=== PATIENT | female | born 1985 | race Caucasian/White ===

== ENCOUNTER 2017-06-14 11:19 | Inpatient (IN) | payer OTHER ==
[2017-06-14 13:51] VITALS: BMI 25.7
--- NOTE | 2017-06-14 19:17 | HP ---
COWS - Scale Resting Pulse: 1= [place] 81-100 Sweatin=Flushed/Facial Moisture Restless Observation: 3= Extraneous Movement Pupil Size: 0= Normal to Room Light Bone or Joint Aches: 2= Severe Diffuse Aches Runny Nose/ Eye Tearin= Constantly Teary/Runny GI Upset > 30mins: 1= Stomach Cramp Tremor Observation: 2= Slight Tremor Visible Yawning Observation: 1= 1-2x During Session Anxiety or Irritability: 4=Extreme Anxiety Goose Flesh Skin: 3=Piloerection COWS Score: 23 CIWA Score - CIWA Score Nausea/Vomitin Muscle Tremors: 4-Moderate,w/Arms Extend Anxiety: 4-Mod. Anxious/Guarded Agitation: 5 Paroxysmal Sweats: 3 Orientation: 1-Uncertain about Date Tacttile Disturbances: 2-Mild Itch/Numbness/Burn Auditory Disturbances: 2-Mild Harshness/Frighten Visual Disturbances: 2-Mild Sensitivity Headache: 2-Mild CIWA-Ar Total Score: 28 Admission [facility] - HPI Chief Complaint: "I dont feel like this, I feel like im burning inside, I need help, I don't feel well. I am withdrawing real bad this time." Allergies/Adverse Reactions: Allergies Allergy/AdvReac Type Severity Reaction Status Date / Time Fish Containing Products Allergy Severe Rash Verified 06/14/17 17:18 lamotrigine [From Lamictal] Allergy Unknown Rash Verified 06/14/17 17:18 History of Present Illness: 31 yo female with hx nicotine, alcohol, marijuana, IV heroin, xanax and cocaine dependence is here seeking detox. PMHX: epilepsy, asthma, grand mal seizures, HTN, bipolar, anxiety, schizophrenia. Currently denies suicidal /. homicidal ideation, reports hx of suicide attempt, last time 2 years ago. Denies auditory or visual hallucinations. Denies hx of OD, last seizures related to stress three days ago. Reports hx of link to Methadone program on 80 mg half-way 2014 and was release September 03, 2016. Longest period of sobriety 5 years. Exam Limitations: No Limitations - Ebola screening Have you traveled outside of the country in the last 21 days: No Have you had contact with anyone from an Ebola affected area: No Have you been sick,other than usual withdrawal symptoms: No Do you have a fever: No - Review of Systems Constitutional: Chills, Loss of Appetite, Changes in sleep, Weakness, Unintentional Wgt. Loss (30 lbs in month) EENT: reports: Nose Congestion, Dental Problems ("feel like they are getting loose") Respiratory: reports: SOB with Exertion Cardiac: reports: Palpitations GI: reports: Diarrhea, Nausea, Poor Appetite, Poor Fluid Intake, Vomiting, Abdominal cramping : reports: No Symptoms Reported Musculoskeletal: reports: Back Pain, Joint Pain Integumentary: reports: Pruritus (eczema) Neuro: reports: Headache, Numbness, Tingling, Dizziness Endocrine: reports: Excessive Sweating, Increased Thirst Hematology: reports: No Symptoms Reported Psychiatric: reports: Agitated, Anxious, other (AOx PP) Other Systems: Reviewed and Negative Patient History - Patient Medical History Hx Anemia: No Hx Asthma: Yes (Pt is on MDI for asthma.) Hx Chronic Obstructive Pulmonary Disease (COPD): No Hx Cancer: No Hx Cardiac Disorders: No Hx Congestive Heart Failure: No Hx Hypertension: Yes (on meds.) Hx Hypercholesterolemia: No Hx Pacemaker: No HX Cerebrovascular Accident: No Hx Seizures: Yes (seizure disorder, last seizure was 3 days ago.) Hx Dementia: No Hx Diabetes: No Hx Gastrointestinal Disorders: No Hx Liver Disease: No Hx Genitourinary Disorders: No Hx Sexually Transmitted Disorders: No Hx Renal Disease (ESRD): No Hx Thyroid Disease: No Hx Human Immunodeficiency Virus (HIV): No Hx Hepatitis C: No Hx Depression: Yes Hx Suicide Attempt: Yes (Tried to overdose in 2014) Hx Bipolar Disorder: Yes Hx Schizophrenia: No - Patient Surgical History Past Surgical History: Yes Hx Neurologic Surgery: No Hx Cataract Extraction: No Hx Cardiac Surgery: No Hx Lung Surgery: No Hx Breast Surgery: No Hx Breast Biopsy: No Hx Abdominal Surgery: No Hx Appendectomy: No Hx Cholecystectomy: No Hx Genitourinary Surgery: No Hx Section: Yes (2x) Hx Orthopedic Surgery: No Anesthesia Reaction: No - PPD History Previous Implant?: Yes Documented Results: Negative w/o proof Implanted On Prior R Admission?: Yes Date: 11/19/14 Results: 0mm PPD to be Administered?: Yes - Reproductive History Patient is a Female of Child Bearing Age (11 -55 yrs old): Yes Last Menstrual Period: 03/03/17 Patient : No - Smoking Cessation Smoking history: Current every day smoker Have you smoked in the past 12 months: Yes Aproximately how many cigarettes per day: 20 Hx Chewing Tobacco Use: No Initiated information on smoking cessation: Yes 'Breaking Loose' booklet given: 06/14/17 - Substance & Tx. History Hx Alcohol Use: Yes Hx Substance Use: Yes Substance Use Type: Alcohol, Cocaine, Heroin, Marijuana, Opiates, Tranquilizers Hx Substance Use Treatment: Yes ([facility] 2014) - Substances Abused Heroin Route: Injection Frequency: Daily Amount used: 20-30 BAGS Age of first use: 26 Date of Last Use: 06/14/17 Cocaine Route: Injection Frequency: Daily Amount used: 1 GRAM Age of first use: 26 Date of Last Use: 06/13/17 Alprazolam (Xanax) Route: Oral Frequency: Daily Amount used: 10MG Age of first use: 29 Date of Last Use: 06/13/17 Marijuana/Hashish Route: Smoking Frequency: 1-2 times per week Amount used: 1 OUNCE Age of first use: 13 Date of Last Use: 06/13/17 Alcohol Route: Oral Frequency: Daily Amount used: 1 LITER VODKA Age of first use: 17 Date of Last Use: 06/14/17 Family Disease History - Family Disease History Family Disease History: Diabetes: Grandparent, Father (dependencies on alcohol and drugs ), Heart Disease: Grandparent, Respiratory: Grandparent, Father, Mother (dependencies on alcohol and drugs ), Brother, Sister, Other: Father, Mother Admission Physical Exam S - Vital Signs Vital Signs: Vital Signs - 24 hr 06/14/17 06/14/17 13:49 18:05 Temperature 98.1 F 98.1 F Pulse Rate 100 H 100 H Respiratory 18 18 Rate Blood Pressure 111/59 111/59 - Physical General Appearance: Yes: Moderate Distress, Irritable, Sweating, Anxious, Other (patient unable to sit still, kept standing up several times suring assessment) HEENTM: Yes: EOMI, Hearing grossly Normal, Normal ENT Inspection, Pharynx Normal , Tm's normal, Nasal Congestion Respiratory: Yes: Chest Non-Tender, Lungs Clear, Normal Breath Sounds, No Respiratory Distress, No Accessory Muscle Use Neck: Yes: No masses,lesions,Nodules, Trachea in good position Breast: Yes: Breast Exam Deferred Cardiology: Yes: Regular Rhythm, Regular Rate, S1, S2 Abdominal: Yes: Normal Bowel Sounds, Non Tender, Flat, Soft Genitourinary: Yes: Within Normal Limits Back: Yes: Normal Inspection Musculoskeletal: Yes: full range of Motion, Gait Steady, Pelvis Stable Extremities: Yes: Normal Capillary Refill, Normal Range of Motion, Non-Tender, Tremors 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: Yes: Within Normal Limits, deer farmer II-XII NML intact, Fully Oriented, Alert, Motor Strength 5/5, Depressed Affect (patient was tearful during assesment) Integumentary: Yes: Normal Color, Dry, Warm, Diaphoresis, Rash (flexeral folds of the forearms), Track Holguin (bilateral hands and foreams without signs of infection) Lymphatic: Yes: Within Normal Limits - Diagnostic (1) Eczema Current Visit: Yes Status: Chronic Qualifiers: Eczema type: unspecified Qualified Code(s): L30.9 - Dermatitis, unspecified (2) Hypertension Current Visit: Yes Status: Chronic Qualifiers: Hypertension type: essential hypertension Qualified Code(s): I10 - Essential (primary) hypertension (3) Asthma Current Visit: Yes Status: Chronic (4) Alcohol dependence with withdrawal Current Visit: Yes Status: Acute Qualifiers: Complication of substance-induced condition: uncomplicated Qualified Code(s ): F10.230 - Alcohol dependence with withdrawal, uncomplicated (5) Sedative, hypnotic or anxiolytic dependence with withdrawal, unspecified Current Visit: Yes Status: Acute (6) Opioid dependence with withdrawal Current Visit: Yes Status: Acute (7) IV drug user Current Visit: Yes Status: Acute (8) Anxious mood Current Visit: Yes Status: Acute (9) Psychiatric disorder Current Visit: Yes Status: Acute (10) Bronchial asthma Current Visit: Yes Status: Chronic Qualifiers: Asthma severity: moderate Asthma persistence: unspecified Asthma complication type: unspecified Qualified Code(s): J45.909 - Unspecified asthma , uncomplicated (11) Cannabis dependence Current Visit: Yes Status: Chronic (12) Cocaine dependence Current Visit: No Status: Chronic Qualifiers: Substance use status: uncomplicated Qualified Code(s): F14.20 - Cocaine dependence, uncomplicated (13) Nicotine dependence Current Visit: Yes Status: Chronic Qualifiers: Nicotine product type: cigarettes (14) PTSD (post-traumatic stress disorder) Current Visit: Yes Status: Chronic (15) Seizure disorder Current Visit: Yes Status: Chronic Cleared for Admission [facility] - Detox or Rehab [facility] Level of Care: Medically Managed Detox Regimen/Protocol: Methadone/Librium [facility] Breath Alcohol Content Breath Alcohol Content: 0.193 Urine Pregancy Test - Result Urine Test Results: Negative- NO Line Present Urine Drug Screen - Results Drug Screen Negative: No Urine Drug Screen Results: THC-Marijuana, GUILLERMINA-Cocaine, OPI-Opiates, BZO- Benzodiazepines, MTD-Methadone, OXY-Oxycodone
[2017-06-14] MEDS ORDERED: P-EPHED 60MG/TRIPROLIDI 2.5MG TABLET PO PRN (19:27)
[2017-06-14] MEDS ORDERED: guaiFENesin/D-METHORPHAN HB 10 ML UNIT-DOSE CUPS PO PRN (19:27)
[2017-06-14] MEDS ORDERED: MAGNESIUM HYDROX 2400MG/30ML ORAL SUSPENSION 30 ML CUP PO PRN (19:27)
[2017-06-14] MEDS ORDERED: LOPERAMIDE HCL 2 MG CAPSULE PO PRN (19:27)
[2017-06-14] MEDS ORDERED: chlordiazePOXIDE HCL 25 MG CAPSULE PO ONE (19:27)
[2017-06-14] MEDS ORDERED: MAG HYDROX/AL HYDROX/SIMETH 30 ML UNIT-DOSE CUP PO PRN (19:27)
[2017-06-14] MEDS ORDERED: MAGNESIUM CITRATE 300 ML BOTTLE PO PRN (19:27)
[2017-06-14] MEDS ORDERED: ALBUTEROL SO4 18 GM HFA INHALER IH PRN (19:29)
[2017-06-14] MEDS ORDERED: CYCLOBENZAPRINE HCL 10 MG TABLET (FP) PO PRN (19:31)
[2017-06-14] MEDS ORDERED: COLLOIDAL OATMEAL 1 BAR EACH TP PRN (19:32)
[2017-06-14] MEDS ORDERED: METHADONE HCL 10 MG TABLET (FOR DETOX USE ONLY) PO ONE ×2 (20:00→23:00)
[2017-06-14] MEDS: chlordiazePOXIDE HCL 25 MG CAPSULE PO PRN (20:03)
[2017-06-14] MEDS: THIAMINE HCL 100 MG TABLET (FP) PO SCH (22:10)
[2017-06-14] MEDS: GABAPENTIN 300 MG CAPSULE (FP) PO SCH (22:10)
[2017-06-14] MEDS: cloNIDine HCL 0.1 MG TABLET PO SCH (22:10)
[2017-06-14] MEDS: levETIRAcetam 500 MG TABLET (FP) PO SCH (22:12)
[2017-06-14] MEDS: BUDESONIDE/FORMETEROL FUMARATE 160/4.5 mcg INHALER IH SCH (22:13)
[2017-06-14] MEDS: chlordiazePOXIDE HCL 25 MG CAPSULE PO SCH (22:13)
[2017-06-14] MEDS: CYCLOBENZAPRINE HCL 5 MG TABLET PO PRN (22:15)
[2017-06-14] MEDS ORDERED: ALBUTEROL SO4 2.5/IPRATROPIUM 0.5 INH SOL 3 ML VIAL.NEB. NEB PRN (23:08)
[2017-06-14] MEDS: BETAMETHASONE VALER 0.1% OINT 15 GM TUBE TP SCH (23:15)
[2017-06-15] MEDS: ACETAMINOPHEN 325 MG TABLET (FP) PO PRN ×2 (01:28→22:30)
[2017-06-15] MEDS: chlordiazePOXIDE HCL 25 MG CAPSULE PO PRN (01:28)
[2017-06-15] MEDS: IBUPROFEN 400 MG TABLET (FP) PO PRN (04:59)
[2017-06-15] MEDS: chlordiazePOXIDE HCL 25 MG CAPSULE PO SCH ×4 (04:59→22:27)
[2017-06-15] MEDS: CYCLOBENZAPRINE HCL 5 MG TABLET PO PRN ×3 (05:00→22:28)
[2017-06-15] MEDS: GABAPENTIN 300 MG CAPSULE (FP) PO SCH ×3 (05:00→22:28)
[2017-06-15] MEDS ORDERED: hydrOXYzine PAMOATE 50 MG CAPSULE (FP) PO SCH (08:15)
--- NOTE | 2017-06-15 08:38 | CONSULT ---
[facility] Psychiatric Consult - Data Date of interview: 06/15/17 Admission source: [facility] Identifying data: This is 31 years old female, mother of 2, unemployed on PA, living alone, with history of Bipolar Diusorder, history of PTSD, history of psychiatric hospitalizations and sucial attempts history as well, reports: " I feel like im burning inside, I need help, I don't feel well. I am withdrawing real bad this time.". Reports intoxicated with: Alcohol, Methadone , Cannabis, Cocaine, Heroin, Nicotine Substance Abuse History: Smoking history: Current every day smoker. Have you smoked in the past 12 months: Yes. Aproximately how many cigarettes per day: 20. Hx Chewing Tobacco Use: No. Initiated information on smoking cessation: Yes. 'Breaking Loose' booklet given: 06/14/17. - Substance & Tx. History. Hx Alcohol Use: Yes. Hx Substance Use: Yes. Substance Use Type: Alcohol, Cocaine , Heroin, Marijuana, Opiates, Tranquilizers. Hx Substance Use Treatment: Yes ( [facility] 2014). - Substances Abused. Heroin. Route: Injection. Frequency: Daily. Amount used: 20-30 BAGS. Age of first use: 26. Date of Last Use: 06/14. Cocaine. Route: Injection. Frequency: Daily. Amount used: 1 GRAM. Age of first use: 26. Date of Last Use: 06/13/17. Alprazolam (Xanax). Route: Oral. Frequency: Daily. Amount used: 10MG. Age of first use: 29. Date of Last Use: 06/13/17. Marijuana/Hashish. Route: Smoking. Frequency: 1-2 times per week. Amount used: 1 OUNCE. Age of first use: 13. Date of Last Use: 06/13/17. Alcohol. Route: Oral. Frequency: Daily. Amount used: 1 LITER VODKA. Age of first use: 17. Date of Last Use: 06/14/17. Urine Drug Screen Results: THC-Marijuana, GUILLERMINA-Cocaine, OPI-Opiates, BZO-Benzodiazepines, MTD-Methadone, OXY-Oxycodone Medical History: Seizure history, Asthma Psychiatric History: Patient reportws history of Bipolar Disorder, PTSD, reports most recent psychiatric admission on 2015 at [facility] after suicidal attempt byb cutting her wrist, no stitches applyed, reports no suicdal history since then, but reports suicidal history prior to 2016 episode. Reports taking prior to admission: Ambien 10mg po qhs. Seroquel 50mg poqd, 300mg po qhs. Vistaril 50mg po prn q4 for agitatopn Physical/Sexual Abuse/Trauma History: Unclear Additional Comment: Urine Drug Screen Results: THC-Marijuana, GUILLERMINA-Cocaine, OPI- Opiates, BZO-Benzodiazepines, MTD-Methadone, OXY-Oxycodone. Ambien 10mg po qhs. Seroquel 50mg poqd, 300mg po qhs. Vistaril 50mg po prn q4 for agitatopn Mental Status Exam - Mental Status Exam Alert and Oriented to: Person Cognitive Function: Fair Patient Appearance: Unkempt Mood: Anxious, Expansive, Irritable Affect: Labile Patient Behavior: Restless, Impulsive, Talkative Speech Pattern: Excessive Voice Loudness: Mildly Loud Thought Process: Circumstantial Thought Disorder: Being Controlled Hallucinations: Denies Suicidal Ideation: Denies Homicidal Ideation: Denies Insight/Judgement: Fair Sleep: Difficulty falling asleep Appetite: Weight loss Muscle strength/Tone: Normal Gait/Station: Normal Additional Comments: Ambien 10mg po qhs. Seroquel 50mg poqd, 300mg po qhs. Vistaril 50mg po prn q4 for agitatopn Psychiatric Findings - Problem List ([place] 1, 2,3) (1) Alcohol dependence with withdrawal Current Visit: Yes Status: Acute Qualifiers: Complication of substance-induced condition: uncomplicated Qualified Code(s ): F10.230 - Alcohol dependence with withdrawal, uncomplicated (2) Anxious mood Current Visit: Yes Status: Acute (3) Sedative, hypnotic or anxiolytic dependence with withdrawal, unspecified Current Visit: Yes Status: Acute (4) Cannabis dependence Current Visit: Yes Status: Chronic (5) Nicotine dependence Current Visit: Yes Status: Chronic Qualifiers: Nicotine product type: cigarettes (6) PTSD (post-traumatic stress disorder) Current Visit: Yes Status: Chronic (7) Alcohol dependence Current Visit: No Status: Chronic (8) Bipolar disorder Current Visit: No Status: Chronic (9) Cocaine dependence Current Visit: No Status: Chronic Qualifiers: Substance use status: uncomplicated Qualified Code(s): F14.20 - Cocaine dependence, uncomplicated (10) Opiate dependence Current Visit: No Status: Chronic (11) Personality disorder Current Visit: No Status: Chronic - Initial Treatment Plan Initial Treatment Plan: Ambien 10mg po qhs. Seroquel 50mg poqd, 300mg po qhs. Vistaril 50mg po prn q4 for agitatopn
--- NOTE | 2017-06-15 08:58 | PN ---
[facility] CIWA - CIWA Score Nausea/Vomitin-Mild Nausea/No Vomiting Muscle Tremors: 5 Anxiety: 5 Agitation: 5 Paroxysmal Sweats: 1-Minimal Palms Moist Orientation: 1-Uncertain about Date Tacttile Disturbances: 2-Mild Itch/Numbness/Burn Auditory Disturbances: 0-None Visual Disturbances: 0-None Headache: 2-Mild CIWA-Ar Total Score: 22 BHS COWS - Scale Resting Pulse: 0= [place] 80 or Below Sweatin= Chills/Flushing Restless Observation: 3= Extraneous Movement Pupil Size: 1= Pupils >than Normal Bone or Joint Aches: 2= Severe Diffuse Aches Runny Nose/ Eye Tearin= Runny Nose/Eyes GI Upset > 30mins: 2= Nausea/Diarrhea Tremor Observation of Outstretched Hands: 2= Slight Tremor Visible Yawning Observation: 2= >3x During Session Anxiety or Irritability: 2=Irritable/Anxious Goose Flesh Skin: 3=Piloerection COWS Score: 20 BHS Progress Note (SOAP) Subjective: joint aches body pain sweat tremor restlessness irritable gi distress denies signs for seizure Objective: 06/15/17 09:01 Vital Signs Temperature 97.0 F L 06/15/17 06:24 Pulse Rate 75 06/15/17 06:24 Respiratory Rate 18 06/15/17 06:24 Blood Pressure 116/77 06/15/17 06:24 O2 Sat by Pulse Oximetry (%) lab not available at this time Assessment: 06/15/17 09:01 withdrawal sx Plan: continue detox
[2017-06-15] MEDS ORDERED: METHADONE HCL 10 MG TABLET (FOR DETOX USE ONLY) PO SCH (10:00)
[2017-06-15] MEDS: levETIRAcetam 500 MG TABLET (FP) PO SCH ×2 (10:31→22:27)
[2017-06-15] MEDS: cloNIDine HCL 0.1 MG TABLET PO SCH ×2 (10:32→22:28)
[2017-06-15] MEDS: PRENATAL VITAMINS W/ FOLIC ACID TABLET (FP) PO SCH (10:32)
[2017-06-15] MEDS: QUEtiapine FUMARATE 50 MG TABLET PO SCH (10:32)
[2017-06-15] MEDS: BUDESONIDE/FORMETEROL FUMARATE 160/4.5 mcg INHALER IH SCH ×2 (10:34→22:33)
[2017-06-15] MEDS: BETAMETHASONE VALER 0.1% OINT 15 GM TUBE TP SCH ×2 (10:34→22:30)
[2017-06-15] MEDS: NICOTINE POLACRILEX 2 MG GUM BUC PRN ×3 (10:37→21:48)
[2017-06-15] MEDS: NICOTINE 21 MG/24 HOURS TOPICAL PATCH TD SCH (10:37)
[2017-06-15 10:41] LABS: CHLORIDE 100 mmol/L (98-107); POTASSIUM 4.5 mmol/L (3.5-5.1); SODIUM 140 mmol/L (136-145)
--- NOTE | 2017-06-15 10:47 | EKG ---
Test Reason : Blood Pressure : / mmHG Vent. Rate : 086 BPM Atrial Rate : 086 BPM P-R Int : 140 ms QRS Dur : 092 ms QT Int : 374 ms P-R-T Axes : 057 059 040 degrees QTc Int : 447 ms NORMAL SINUS RHYTHM NORMAL ECG NO PREVIOUS ECGS AVAILABLE Confirmed by DANIELLA KING, CORRINA ([id number]) on 06/15/2017 10:46:42 AM Referred By: Confirmed By:CORRINA BREWER MD
[2017-06-15 10:51] LABS: ALBUMIN 3.8 g/dl (3.4-5.0); ALK PHOS 127 U/L (45-117); ANION GAP 11 (8-16); BILIRUBIN,TOTAL 0.3 mg/dL (0.2-1.0); BLOOD UREA NITROGEN 11 mg/dL (7-18); CALCIUM 9.6 mg/dL (8.5-10.1); CO2 29 mmol/L (21-32); CREATININE 0.6 mg/dL (0.55-1.02); GLUCOSE,RANDOM 76 mg/dL (74-106); SGOT/AST 16 U/L (15-37); SGPT/ALT 13 U/L (12-78); TOT PROT 7.8 g/dl (6.4-8.2)
[2017-06-15 11:45] LABS: HEMATOCRIT 37.1 % (32.4-45.2); HEMOGLOBIN 12.7 GM/dL (10.7-15.3); MCH 28.1 pg (25.7-33.7); MCHC 34.3 g/dl (32.0-36.0); MEAN CELL VOLUME 81.9 fl (80-96); MEAN PLT VOLUME 7.2 fl (7.5-11.1); PLATELET COUNT 356 K/MM3 (134-434); RBC 4.53 M/mm3 (3.60-5.2); RDW 15.7 % (11.6-15.6); WHITE BLOOD COUNT 11.2 K/mm3 (4.0-10.0)
[2017-06-15] MEDS: hydrOXYzine PAMOATE 50 MG CAPSULE (FP) PO PRN (13:19)
[2017-06-15 17:20] LABS: URINE APPEARANCE CLEAR; URINE BILIRUBIN NEGATIVE (NEGATIVE); URINE BLOOD NEGATIVE (NEGATIVE); URINE COLOR LTYELLOW; URINE GLUCOSE (UA) NEGATIVE (NEGATIVE); URINE KETONE NEGATIVE (NEGATIVE); URINE LEUK ESTERASE NEGATIVE (NEGATIVE); URINE NITRITE NEGATIVE (NEGATIVE); URINE PROTEIN NEGATIVE (NEGATIVE); URINE UROBILINOGEN NEGATIVE mg/dL (0.2-1.0)
[2017-06-15] MEDS ORDERED: PATIENT'S OWN MEDICATION (NON-FORMULARY) (Zolpidem Tartrate [Ambien] 10 MG) PO SCH (22:00)
[2017-06-15] MEDS: QUEtiapine FUMARATE 300 MG TABLET PO SCH (22:30)
[2017-06-15] MEDS: THIAMINE HCL 100 MG TABLET (FP) PO SCH (22:32)
[2017-06-16] MEDS: chlordiazePOXIDE HCL 25 MG CAPSULE PO PRN ×2 (01:27→13:57)
[2017-06-16] MEDS: NICOTINE POLACRILEX 2 MG GUM BUC PRN ×6 (01:30→22:42)
[2017-06-16] MEDS: IBUPROFEN 400 MG TABLET (FP) PO PRN ×2 (02:36→18:13)
[2017-06-16] MEDS: hydrOXYzine PAMOATE 50 MG CAPSULE (FP) PO PRN ×3 (02:36→18:13)
[2017-06-16] MEDS: chlordiazePOXIDE HCL 25 MG CAPSULE PO SCH ×3 (06:28→16:59)
[2017-06-16] MEDS: GABAPENTIN 300 MG CAPSULE (FP) PO SCH ×3 (06:30→22:13)
[2017-06-16] MEDS: BUDESONIDE/FORMETEROL FUMARATE 160/4.5 mcg INHALER IH SCH ×2 (10:10→22:13)
[2017-06-16] MEDS: levETIRAcetam 500 MG TABLET (FP) PO SCH ×2 (10:10→22:13)
[2017-06-16] MEDS: METHADONE HCL 5 MG TABLET (FOR DETOX USE ONLY) PO SCH (10:11)
[2017-06-16] MEDS: PRENATAL VITAMINS W/ FOLIC ACID TABLET (FP) PO SCH (10:12)
[2017-06-16] MEDS: NICOTINE 21 MG/24 HOURS TOPICAL PATCH TD SCH (10:12)
[2017-06-16] MEDS: CYCLOBENZAPRINE HCL 5 MG TABLET PO PRN (10:12)
[2017-06-16] MEDS: QUEtiapine FUMARATE 50 MG TABLET PO SCH (10:13)
[2017-06-16] MEDS: BETAMETHASONE VALER 0.1% OINT 15 GM TUBE TP SCH ×2 (10:13→22:14)
[2017-06-16] MEDS: cloNIDine HCL 0.1 MG TABLET PO SCH ×2 (11:24→22:15)
--- NOTE | 2017-06-16 11:46 | PN ---
[facility] CIWA - CIWA Score Nausea/Vomitin-Mild Nausea/No Vomiting Muscle Tremors: 4-Moderate,w/Arms Extend Anxiety: 4-Mod. Anxious/Guarded Agitation: 4-Moderately Restless Paroxysmal Sweats: 1-Minimal Palms Moist Orientation: 0-Oriented Tacttile Disturbances: 2-Mild Itch/Numbness/Burn Auditory Disturbances: 0-None Visual Disturbances: 0-None Headache: 1-Very Mild CIWA-Ar Total Score: 17 BHS COWS - Scale Resting Pulse: 0= [place] 80 or Below Sweatin= Chills/Flushing Restless Observation: 1= Difficult to Sit Still Pupil Size: 0= Normal to Room Light Bone or Joint Aches: 2= Severe Diffuse Aches Runny Nose/ Eye Tearin= Runny Nose/Eyes GI Upset > 30mins: 2= Nausea/Diarrhea Tremor Observation of Outstretched Hands: 2= Slight Tremor Visible Yawning Observation: 2= >3x During Session Anxiety or Irritability: 2=Irritable/Anxious Goose Flesh Skin: 3=Piloerection COWS Score: 17 [facility] Progress Note (SOAP) Subjective: running nose joint ache body pain sweat tremor restlessness anxiety irritable agitative had shower feel better Objective: 06/16/17 11:50 Vital Signs Temperature 98.3 F 06/16/17 11:31 Pulse Rate 84 06/16/17 11:31 Respiratory Rate 16 06/16/17 11:31 Blood Pressure 127/54 06/16/17 11:31 O2 Sat by Pulse Oximetry (%) Laboratory Last Values WBC 11.2 K/mm3 (4.0-10.0) H D 06/15/17 07:00 RBC 4.53 M/mm3 (3.60-5.2) 06/15/17 07:00 Hgb 12.7 GM/dL (10.7-15.3) 06/15/17 07:00 Hct 37.1 % (32.4-45.2) 06/15/17 07:00 MCV 81.9 fl (80-96) 06/15/17 07:00 MCH 28.1 pg (25.7-33.7) 06/15/17 07:00 MCHC 34.3 g/dl (32.0-36.0) 06/15/17 07:00 RDW 15.7 % (11.6-15.6) H 06/15/17 07:00 Plt Count 356 K/MM3 (134-434) D 06/15/17 07:00 MPV 7.2 fl (7.5-11.1) L 06/15/17 07:00 Sodium 140 mmol/L (136-145) 06/15/17 07:00 Potassium 4.5 mmol/L (3.5-5.1) 06/15/17 07:00 Chloride 100 mmol/L (98-107) 06/15/17 07:00 Carbon Dioxide 29 mmol/L (21-32) 06/15/17 07:00 Anion Gap 11 (8-16) 06/15/17 07:00 BUN 11 mg/dL (7-18) 06/15/17 07:00 Creatinine 0.6 mg/dL (0.55-1.02) 06/15/17 07:00 Creat Clearance w eGFR > 60 (>60) 06/15/17 07:00 Random Glucose 76 mg/dL (74-106) 06/15/17 07:00 Calcium 9.6 mg/dL (8.5-10.1) 06/15/17 07:00 Total Bilirubin 0.3 mg/dL (0.2-1.0) D 06/15/17 07:00 AST 16 U/L (15-37) 06/15/17 07:00 ALT 13 U/L (12-78) 06/15/17 07:00 Alkaline Phosphatase 127 U/L (45-117) H 06/15/17 07:00 Total Protein 7.8 g/dl (6.4-8.2) 06/15/17 07:00 Albumin 3.8 g/dl (3.4-5.0) 06/15/17 07:00 Urine Color Ltyellow 06/14/17 15:00 Urine Appearance Clear 06/14/17 15:00 Urine pH 6.0 (5.0-8.0) 06/14/17 15:00 Ur Specific Cummings 1.010 (1.001-1.035) 06/14/17 15:00 Urine Protein Negative (NEGATIVE) 06/14/17 15:00 Urine Glucose (UA) Negative (NEGATIVE) 06/14/17 15:00 Urine Ketones Negative (NEGATIVE) 06/14/17 15:00 Urine Blood Negative (NEGATIVE) 06/14/17 15:00 Urine Nitrite Negative (NEGATIVE) 06/14/17 15:00 Urine Bilirubin Negative (NEGATIVE) 06/14/17 15:00 Urine Urobilinogen Negative mg/dL (0.2-1.0) 06/14/17 15:00 Ur Leukocyte Esterase Negative (NEGATIVE) 06/14/17 15:00 RPR Titer Nonreactive (NONREACTIVE) 06/15/17 07:00 HIV 1&2 Antibody Screen Negative 06/15/17 07:00 HIV P24 Antigen Negative 06/15/17 07:00 lab noted Assessment: 06/16/17 11:51 withdrawal sx Plan: continue detox
--- NOTE | 2017-06-16 12:14 | PN ---
Psychiatric Progress Note Vital Signs: Vital Signs Period Temp Pulse Resp BP Sys/Mckinney Pulse Ox Last 24 Hr 97.5 F-99.1 F 75-89 16-20 99-146/54-88 Date of Session: 06/16/17 Chief Complaint:: Insomnia, my Ambien HPI: Chance reports not having her Ambien last night, patient has been explained Ambien as PRN order and patient has to request this medications at bed time. Current Medications: Active Medications Generic Name Dose Route Start Last Admin Trade Name Freq PRN Reason Stop Dose Admin Acetaminophen 650 mg 06/14/17 19:27 06/15/17 22:30 Tylenol - PO 650 mg Q4H PRN Administration FEVER Al Hydroxide/Mg Hydroxide 30 ml 06/14/17 19:27 Mylanta Oral Suspension - PO Q6H PRN DYSPEPSIA Albuterol Sulfate 2 puff 06/14/17 19:29 Ventolin Hfa Inhaler - IH Q4H PRN ASTHMA Albuterol/Ipratropium 1 amp 06/14/17 23:08 Duoneb - NEB Q6H PRN SHORTNESS OF BREATH Betamethasone Valerate 1 applic 06/14/17 22:00 06/16/17 10:13 Valisone 0.1% Ointment - TP 1 applic BID NITO Administration Budesonide/Formoterol Fumarate 1 puff 06/14/17 22:00 06/16/17 10:10 Symbicort 160/4.5mcg - IH Not Given BID NITO Chlordiazepoxide HCl 25 mg 06/15/17 23:00 06/16/17 10:13 Librium - PO 06/16/17 17:01 25 mg [id number] NITO Administration Chlordiazepoxide HCl 15 mg 06/16/17 23:00 Librium - PO 06/17/17 17:01 [id number] NITO Chlordiazepoxide HCl 10 mg 06/17/17 23:00 Librium - PO 06/18/17 17:01 [id number] NITO Chlordiazepoxide HCl 25 mg 06/14/17 19:27 06/16/17 01:27 Librium - PO 06/17/17 19:27 25 mg Q4H PRN Administration WITHDRAWAL(CONT SUBST) Clonidine 0.1 mg 06/14/17 22:00 06/16/17 11:24 Catapres - PO 0.1 mg BID NITO Administration Colloidal Oatmeal 1 applic 06/14/17 19:32 Aveeno Soap - TP DAILY PRN HYGEINE Cyclobenzaprine HCl 5 mg 06/14/17 22:12 06/16/17 10:12 Cyclobenzaprine Hcl PO 5 mg Q8H PRN Administration MUSCLE SPASMS Eucalyptus/Menthol/Phenol/Sorbitol 1 each 06/14/17 19:27 Cepastat Lozenge - MM Q4H PRN SORE THROAT Gabapentin 300 mg 06/14/17 22:00 06/16/17 06:30 Neurontin - PO Not Given TID NITO Guaifenesin 10 ml 06/14/17 19:27 Robitussin Dm - PO Q6H PRN COUGH Hydroxyzine Pamoate 50 mg 06/14/17 19:27 06/16/17 02:36 Vistaril - PO 50 mg Q4H PRN Administration AGITATION Ibuprofen 400 mg 06/14/17 19:27 06/16/17 02:36 Motrin - PO 400 mg Q6H PRN Administration PAIN LEVEL 4-6 Levetiracetam 750 mg 06/14/17 22:00 06/16/17 10:10 Keppra - PO 750 mg BID NITO Administration Loperamide HCl 4 mg 06/14/17 19:27 06/15/17 11:51 Imodium - PO 4 mg Q6H PRN Administration DIARRHEA Magnesium Citrate 300 ml 06/14/17 19:27 Citroma - PO Q48H PRN CONSTIPATION Magnesium Hydroxide 30 ml 06/14/17 19:27 Milk Of Magnesia - PO DAILY PRN CONSTIPATION Methadone HCl 15 mg 06/16/17 10:00 06/16/17 10:11 Dolophine - PO 06/17/17 10:01 15 mg DAILY NITO Administration Methadone HCl 5 mg 06/19/17 06:00 Dolophine - PO 06/19/17 06:01 DAILY@0600 NITO Methadone HCl 10 mg 06/18/17 10:00 Dolophine - PO 06/18/17 10:01 DAILY NITO Nicotine 21 mg 06/15/17 10:00 06/16/17 10:12 Nicoderm Patch - TD Not Given DAILY NITO Nicotine Polacrilex 2 mg 06/14/17 19:27 06/16/17 11:27 Nicorette Gum - BUC 2 mg Q2H PRN Administration NICOTINE REPLACEMENT RX Multivit/Folic Acid/Iron 1 tab 06/15/17 10:00 06/16/17 10:12 Vitamins (Sjr) - PO 1 tab DAILY NITO Administration Pseudoephedrine/Triprolidine 1 combo 06/14/17 19:27 Actifed - PO TID PRN NASAL CONGESTION Quetiapine Fumarate 50 mg 06/15/17 10:00 06/16/17 10:13 Seroquel - PO 50 mg DAILY NITO Administration Quetiapine Fumarate 300 mg 06/15/17 22:00 06/15/17 22:30 Seroquel - PO 300 mg HS NITO Administration Thiamine HCl 100 mg 06/14/17 22:00 06/15/17 22:32 Vitamin B1 - PO 100 mg HS NITO Administration Zolpidem Tartrate 10 mg 06/15/17 22:00 Ambien - PO 06/18/17 21:59 HS PRN INSOMNIA Medication(s) Change(s): none Mental Status Exam - Mental Status Exam Alert and Oriented to: Place, Person Cognitive Function: Fair Patient Appearance: Well Groomed Mood: Anxious Affect: Labile Patient Behavior: Talkative Speech Pattern: Excessive Voice Loudness: Normal Thought Process: Goal Oriented Thought Disorder: Being Controlled Hallucinations: Denies Suicidal Ideation: Denies Homicidal Ideation: Denies Insight/Judgement: Fair Sleep: Difficulty falling asleep Appetite: Fair Muscle strength/Tone: Normal Gait/Station: Normal Additional Comments: Continue treatment plan Psychiatric Treatment Plan - Problem List (1) Alcohol dependence with withdrawal Current Visit: Yes Qualifiers: Complication of substance-induced condition: uncomplicated Qualified Code(s ): F10.230 - Alcohol dependence with withdrawal, uncomplicated (2) Anxious mood Current Visit: Yes (3) Sedative, hypnotic or anxiolytic dependence with withdrawal, unspecified Current Visit: Yes (4) Cannabis dependence Current Visit: Yes (5) Nicotine dependence Current Visit: Yes Qualifiers: Nicotine product type: cigarettes (6) PTSD (post-traumatic stress disorder) Current Visit: Yes (7) Alcohol dependence Current Visit: No (8) Bipolar disorder Current Visit: No (9) Cocaine dependence Current Visit: No Qualifiers: Substance use status: uncomplicated Qualified Code(s): F14.20 - Cocaine dependence, uncomplicated (10) Opiate dependence Current Visit: No (11) Personality disorder Current Visit: No Initial treatment plan: Continue treatment plan
[2017-06-16] MEDS: MENTHOL/PHENOL 1 EACH UD MM PRN (20:30)
[2017-06-16] MEDS: ZOLPIDEM TARTRATE 10 MG TABLET (PARK CARE ONLY) PO PRN (22:13)
[2017-06-16] MEDS: THIAMINE HCL 100 MG TABLET (FP) PO SCH (22:13)
[2017-06-16] MEDS: chlordiazePOXIDE 5 MG CAPSULE PO SCH (22:13)
[2017-06-16] MEDS: QUEtiapine FUMARATE 300 MG TABLET PO SCH (22:14)
[2017-06-17] MEDS: GABAPENTIN 300 MG CAPSULE (FP) PO SCH ×3 (05:33→22:11)
[2017-06-17] MEDS: chlordiazePOXIDE 5 MG CAPSULE PO SCH ×3 (05:33→17:46)
[2017-06-17] MEDS: ACETAMINOPHEN 325 MG TABLET (FP) PO PRN ×2 (05:36→18:07)
[2017-06-17] MEDS: NICOTINE POLACRILEX 2 MG GUM BUC PRN ×4 (05:37→12:36)
[2017-06-17] MEDS: MENTHOL/PHENOL 1 EACH UD MM PRN ×3 (09:07→18:04)
[2017-06-17] MEDS: BUDESONIDE/FORMETEROL FUMARATE 160/4.5 mcg INHALER IH SCH ×2 (10:28→22:11)
[2017-06-17] MEDS: PRENATAL VITAMINS W/ FOLIC ACID TABLET (FP) PO SCH (10:29)
[2017-06-17] MEDS: NICOTINE 21 MG/24 HOURS TOPICAL PATCH TD SCH (10:29)
[2017-06-17] MEDS: levETIRAcetam 500 MG TABLET (FP) PO SCH ×2 (10:29→22:11)
[2017-06-17] MEDS: QUEtiapine FUMARATE 50 MG TABLET PO SCH (10:29)
[2017-06-17] MEDS: cloNIDine HCL 0.1 MG TABLET PO SCH ×2 (10:29→22:11)
[2017-06-17] MEDS: METHADONE HCL 5 MG TABLET (FOR DETOX USE ONLY) PO SCH (10:29)
[2017-06-17] MEDS: BETAMETHASONE VALER 0.1% OINT 15 GM TUBE TP SCH ×2 (10:30→22:14)
--- NOTE | 2017-06-17 12:19 | PN ---
[facility] Progress Note (SOAP) Subjective: interrupted sleep, sweats , shakes anxiety, sorethroat, cough withdark phlegm Objective: 06/17/17 12:14 Vital Signs Temperature 98.1 F 06/17/17 10:39 Pulse Rate 97 H 06/17/17 10:39 Respiratory Rate 20 06/17/17 10:39 Blood Pressure 112/60 06/17/17 10:39 O2 Sat by Pulse Oximetry (%) Laboratory Tests 06/14/17 06/15/17 06/15/17 15:00 07:00 07:00 WBC 11.2 H D RBC 4.53 Hgb 12.7 Hct 37.1 MCV 81.9 MCH 28.1 MCHC 34.3 RDW 15.7 H Plt Count 356 D MPV 7.2 L Sodium Potassium Chloride Carbon Dioxide Anion Gap BUN Creatinine Creat Clearance w eGFR Random Glucose Calcium Total Bilirubin AST ALT Alkaline Phosphatase Total Protein Albumin Urine Color Ltyellow Urine Appearance Clear Urine pH 6.0 Ur Specific [place] 1.010 Urine Protein Negative Urine Glucose (UA) Negative Urine Ketones Negative Urine Blood Negative Urine Nitrite Negative Urine Bilirubin Negative Urine Urobilinogen Negative Ur Leukocyte Esterase Negative RPR Titer HIV 1&2 Antibody Screen Negative HIV P24 Antigen Negative 06/15/17 06/15/17 07:00 07:00 WBC RBC Hgb Hct MCV MCH MCHC RDW Plt Count MPV Sodium 140 Potassium 4.5 Chloride 100 Carbon Dioxide 29 Anion Gap 11 BUN 11 Creatinine 0.6 Creat Clearance w eGFR > 60 Random Glucose 76 Calcium 9.6 Total Bilirubin 0.3 D AST 16 ALT 13 Alkaline Phosphatase 127 H Total Protein 7.8 Albumin 3.8 Urine Color Urine Appearance Urine pH Ur Specific [place] Urine Protein Urine Glucose (UA) Urine Ketones Urine Blood Urine Nitrite Urine Bilirubin Urine Urobilinogen Ur Leukocyte Esterase RPR Titer Nonreactive HIV 1&2 Antibody Screen HIV P24 Antigen pt aox3 in nad ambulating skin multiple excoriations oral mild erythema , enlarge cxnodes lung occas rhonchi jose Assessment: 06/17/17 12:16 withdrawal sx's mild pharyngitis -crack related Plan: continue detox increase fluids zpack x 5 days motrin prn vistaril prn
[2017-06-17] MEDS: chlordiazePOXIDE HCL 25 MG CAPSULE PO PRN (12:35)
[2017-06-17] MEDS ORDERED: AZITHROMYCIN 250 MG TABLET PO ONE (12:40)
[2017-06-17] MEDS: AMOXICILLIN 500 MG CAPSULE (FP) PO SCH ×2 (13:49→22:11)
[2017-06-17] MEDS: CYCLOBENZAPRINE HCL 5 MG TABLET PO PRN ×2 (13:50→22:11)
[2017-06-17] MEDS: hydrOXYzine PAMOATE 50 MG CAPSULE (FP) PO SCH ×2 (15:09→22:48)
[2017-06-17] MEDS: NICOTINE POLACRILEX 4 MG GUM BUC PRN ×2 (15:09→18:42)
[2017-06-17] MEDS ORDERED: NICOTINE POLACRILEX 2 MG GUM BUC PRN (19:27)
[2017-06-17] MEDS: ZOLPIDEM TARTRATE 10 MG TABLET (PARK CARE ONLY) PO PRN (22:11)
[2017-06-17] MEDS: THIAMINE HCL 100 MG TABLET (FP) PO SCH (22:11)
[2017-06-17] MEDS: QUEtiapine FUMARATE 300 MG TABLET PO SCH (22:11)
[2017-06-17] MEDS: chlordiazePOXIDE HCL 10 MG CAPSULE PO SCH (22:11)
[2017-06-18] MEDS: hydrOXYzine PAMOATE 50 MG CAPSULE (FP) PO SCH ×4 (04:21→23:19)
[2017-06-18] MEDS: MENTHOL/PHENOL 1 EACH UD MM PRN ×4 (04:22→23:19)
[2017-06-18] MEDS: GABAPENTIN 300 MG CAPSULE (FP) PO SCH ×3 (05:58→23:19)
[2017-06-18] MEDS: AMOXICILLIN 500 MG CAPSULE (FP) PO SCH (05:58)
[2017-06-18] MEDS: chlordiazePOXIDE HCL 10 MG CAPSULE PO SCH ×3 (06:00→18:13)
[2017-06-18] MEDS: NICOTINE POLACRILEX 4 MG GUM BUC PRN ×4 (06:04→23:19)
[2017-06-18] MEDS ORDERED: METHADONE HCL 10 MG TABLET (FOR DETOX USE ONLY) PO SCH (10:00)
[2017-06-18] MEDS ORDERED: AZITHROMYCIN 250 MG TABLET PO SCH (10:00)
[2017-06-18] MEDS: QUEtiapine FUMARATE 50 MG TABLET PO SCH (10:33)
[2017-06-18] MEDS: levETIRAcetam 500 MG TABLET (FP) PO SCH ×2 (10:34→23:18)
[2017-06-18] MEDS: PRENATAL VITAMINS W/ FOLIC ACID TABLET (FP) PO SCH (10:34)
[2017-06-18] MEDS: cloNIDine HCL 0.1 MG TABLET PO SCH ×2 (10:34→23:18)
[2017-06-18] MEDS: BETAMETHASONE VALER 0.1% OINT 15 GM TUBE TP SCH ×2 (10:35→23:15)
[2017-06-18] MEDS: BUDESONIDE/FORMETEROL FUMARATE 160/4.5 mcg INHALER IH SCH ×2 (10:35→23:14)
[2017-06-18] MEDS: NICOTINE 21 MG/24 HOURS TOPICAL PATCH TD SCH (10:35)
[2017-06-18] MEDS ORDERED: CYCLOBENZAPRINE HCL 10 MG TABLET (FP) PO ONE (11:00)
[2017-06-18] MEDS: FLUOCINONIDE 0.05% CREAM (60 GM TUBE) TP SCH ×2 (14:13→23:22)
--- NOTE | 2017-06-18 15:19 | PN ---
[facility] CIWA - CIWA Score Nausea/Vomitin Muscle Tremors: 3 Anxiety: 3 Agitation: 3 Paroxysmal Sweats: 1-Minimal Palms Moist Orientation: 0-Oriented Tacttile Disturbances: 1-Very Mild Itch/Numbness Auditory Disturbances: 1-Very Mild Visual Disturbances: 0-None Headache: 2-Mild CIWA-Ar Total Score: 17 [facility] COWS - Scale Resting Pulse: 1= [place] 81-100 Sweatin= Chills/Flushing Restless Observation: 3= Extraneous Movement Pupil Size: 1= Pupils >than Normal Bone or Joint Aches: 2= Severe Diffuse Aches Runny Nose/ Eye Tearin= Runny Nose/Eyes GI Upset > 30mins: 2= Nausea/Diarrhea Tremor Observation of Outstretched Hands: 2= Slight Tremor Visible Yawning Observation: 1= 1-2x During Session Anxiety or Irritability: 2=Irritable/Anxious Goose Flesh Skin: 0=Smooth Skin COWS Score: 17 [facility] Progress Note (SOAP) Subjective: ALERT,IRRITABLE,ANXIOUS,INTERRUPTED SLEEP,TREMOR,PAIN IN THE BODY AND BACK, COUGHING Objective: 06/18/17 15:18 Vital Signs Temperature 98.1 F 06/18/17 14:07 Pulse Rate 73 06/18/17 14:07 Respiratory Rate 16 06/18/17 14:07 Blood Pressure 114/63 06/18/17 14:07 O2 Sat by Pulse Oximetry (%) Assessment: 06/18/17 15:18 WITHDRAWAL SYMPTOM Plan: CONTINUE DETOX,DISCHARGE IN AM
[2017-06-18] MEDS ORDERED: AZITHROMYCIN 250 MG TABLET PO ONE (15:30)
--- NOTE | 2017-06-18 15:56 | PN ---
Psychiatric Progress Note Vital Signs: Vital Signs Period Temp Pulse Resp BP Sys/Mckinney Pulse Ox Last 24 Hr 96.6 F-98.4 F 66-93 16-22 101-134/53-67 Date of Session: 06/18/17 Chief Complaint:: " I am anxious." HPI: Day 5 of detoxification treatment : opiod,cocaine,cannabis alcohol and nicotine dependence.Psychiatric follow up is sought to address patient's recurrent complaints of anxiety and jitteriness. ROS: Unremarkable except for restlessness and irritability. Current Medications: Active Medications Generic Name Dose Route Start Last Admin Trade Name Freq PRN Reason Stop Dose Admin Acetaminophen 650 mg 06/14/17 19:27 06/17/17 18:07 Tylenol - PO 650 mg Q4H PRN Administration FEVER Al Hydroxide/Mg Hydroxide 30 ml 06/14/17 19:27 Mylanta Oral Suspension - PO Q6H PRN DYSPEPSIA Albuterol Sulfate 2 puff 06/14/17 19:29 Ventolin Hfa Inhaler - IH Q4H PRN ASTHMA Albuterol/Ipratropium 1 amp 06/14/17 23:08 Duoneb - NEB Q6H PRN SHORTNESS OF BREATH Azithromycin 250 mg 06/19/17 10:00 Zithromax - PO DAILY NITO Betamethasone Valerate 1 applic 06/14/17 22:00 06/18/17 10:35 Valisone 0.1% Ointment - TP 1 applic BID NITO Administration Budesonide/Formoterol Fumarate 1 puff 06/14/17 22:00 06/18/17 10:35 Symbicort 160/4.5mcg - IH 1 puff BID NITO Administration Chlordiazepoxide HCl 10 mg 06/17/17 23:00 06/18/17 10:35 Librium - PO 06/18/17 17:01 10 mg [id number] NITO Administration Clonidine 0.1 mg 06/14/17 22:00 06/18/17 10:34 Catapres - PO 0.1 mg BID NITO Administration Colloidal Oatmeal 1 applic 06/14/17 19:32 Aveeno Soap - TP DAILY PRN HYGEINE Cyclobenzaprine HCl 10 mg 06/18/17 09:20 Flexeril - PO TID PRN MUSCLE SPASMS Eucalyptus/Menthol/Phenol/Sorbitol 1 each 06/14/17 19:27 06/18/17 12:40 Cepastat Lozenge - MM 1 each Q4H PRN Administration SORE THROAT Fluocinonide 1 applic 06/18/17 10:00 06/18/17 14:13 Lidex 0.05% Cream - TP 1 applic BID NITO Administration Gabapentin 300 mg 06/14/17 22:00 06/18/17 14:13 Neurontin - PO 300 mg TID NITO Administration Guaifenesin 10 ml 06/14/17 19:27 Robitussin Dm - PO Q6H PRN COUGH Hydroxyzine Pamoate 50 mg 06/17/17 15:05 06/18/17 14:18 Vistaril - PO 50 mg Q6H NITO Administration Ibuprofen 400 mg 06/14/17 19:27 06/16/17 18:13 Motrin - PO 400 mg Q6H PRN Administration PAIN LEVEL 4-6 Levetiracetam 750 mg 06/14/17 22:00 06/18/17 10:34 Keppra - PO 750 mg BID NITO Administration Loperamide HCl 4 mg 06/14/17 19:27 06/15/17 11:51 Imodium - PO 4 mg Q6H PRN Administration DIARRHEA Magnesium Citrate 300 ml 06/14/17 19:27 Citroma - PO Q48H PRN CONSTIPATION Magnesium Hydroxide 30 ml 06/14/17 19:27 Milk Of Magnesia - PO DAILY PRN CONSTIPATION Methadone HCl 5 mg 06/19/17 06:00 Dolophine - PO 06/19/17 06:01 DAILY@0600 [facility] Nicotine 21 mg 06/15/17 10:00 06/18/17 10:35 Nicoderm Patch - TD 21 mg DAILY NITO Administration Nicotine Polacrilex 4 mg 06/17/17 13:52 06/18/17 10:39 Nicorette Gum - BUC 4 mg Q2H PRN Administration NICOTINE REPLACEMENT RX Multivit/Folic Acid/Iron 1 tab 06/15/17 10:00 06/18/17 10:34 Vitamins (Sjr) - PO 1 tab DAILY NITO Administration Pseudoephedrine/Triprolidine 1 combo 06/14/17 19:27 Actifed - PO TID PRN NASAL CONGESTION Quetiapine Fumarate 50 mg 06/15/17 10:00 06/18/17 10:33 Seroquel - PO 50 mg DAILY NITO Administration Quetiapine Fumarate 300 mg 06/15/17 22:00 06/17/17 22:11 Seroquel - PO 300 mg HS NITO Administration Thiamine HCl 100 mg 06/14/17 22:00 06/17/17 22:11 Vitamin B1 - PO 100 mg HS NITO Administration Zolpidem Tartrate 10 mg 06/15/17 22:00 06/17/17 22:11 Ambien - PO 06/18/17 21:59 10 mg HS PRN Administration INSOMNIA Medication(s) Change(s): None.Patient responded favorably to " talk therapy " and show of support.She is " relieved " to learn that she can get her dose of vistaril 50 mg on a q 4 hourly basis.Briefed about the side effects/benefits of that drug.Ms Clemons agrees with this careplan. Current Side Effect: No Lab tests ordered: No Lab tests reviewed: Yes Provider note:: Chart reviewed.Dr Adair's notes : appreciated.Medications revisited.Patient interviewed.Ms Clemons explains that she is saddened by the sudden of her brother this week (from an accidental drug overdose).Feels upset and remorseful." If I were home,I would have discouraged him from going to [place].Who knows,he might have been saved.He would not have used the bad batch of drugs." Patient is reassured and invited to ventilate her feeelings.She is encouraged to express her grief and not hold her tears.Advised to draw lessons from that tragedy and incorporate the wisdom in her own personal life for growth / health.Ms Clemons calmed down significantly.Admits to feeling revigorated by the observation that her distress has been validated by staff and addressed in multidisciplinary consultation.Mental status remains stable. Total face to face time:: 35 Mental Status Exam - Mental Status Exam Alert and Oriented to: Time, Place, Person Cognitive Function: Good Patient Appearance: Well Groomed Mood: Sad (just lost a younger brother to a drug overdose in [place] this week), Anxious, Apprehensive Affect: Mood Congruent, Constricted Patient Behavior: Talkative, Appropriate, Cooperative (receptive to teaching) Speech Pattern: Clear, Appropriate Voice Loudness: Normal Thought Process: Goal Oriented Thought Disorder: Not Present Hallucinations: Denies Suicidal Ideation: Denies Homicidal Ideation: Denies Insight/Judgement: Fair Sleep: Fair Appetite: Fair Muscle strength/Tone: Normal Gait/Station: Normal Psychiatric Treatment Plan - Problem List (1) Bereavement Current Visit: Yes
[2017-06-18] MEDS: THIAMINE HCL 100 MG TABLET (FP) PO SCH (23:17)
[2017-06-18] MEDS: QUEtiapine FUMARATE 300 MG TABLET PO SCH (23:18)
[2017-06-18] MEDS: CYCLOBENZAPRINE HCL 10 MG TABLET (FP) PO PRN (23:19)
[2017-06-18] MEDS: ZOLPIDEM TARTRATE 10 MG TABLET (PARK CARE ONLY) PO PRN (23:19)
[2017-06-19] MEDS: hydrOXYzine PAMOATE 50 MG CAPSULE (FP) PO SCH ×4 (04:20→22:22)
[2017-06-19] MEDS: GABAPENTIN 300 MG CAPSULE (FP) PO SCH ×3 (05:21→22:22)
[2017-06-19] MEDS: CYCLOBENZAPRINE HCL 10 MG TABLET (FP) PO PRN ×2 (05:24→14:47)
[2017-06-19] MEDS: NICOTINE POLACRILEX 4 MG GUM BUC PRN ×5 (05:29→21:45)
[2017-06-19] MEDS: MENTHOL/PHENOL 1 EACH UD MM PRN ×3 (05:44→18:00)
[2017-06-19] MEDS ORDERED: METHADONE HCL 5 MG TABLET (FOR DETOX USE ONLY) PO SCH (06:00)
[2017-06-19] MEDS: BUDESONIDE/FORMETEROL FUMARATE 160/4.5 mcg INHALER IH SCH ×2 (10:48→22:23)
[2017-06-19] MEDS: PRENATAL VITAMINS W/ FOLIC ACID TABLET (FP) PO SCH (10:48)
[2017-06-19] MEDS: QUEtiapine FUMARATE 50 MG TABLET PO SCH (10:49)
[2017-06-19] MEDS: cloNIDine HCL 0.1 MG TABLET PO SCH ×2 (10:49→23:07)
[2017-06-19] MEDS: BETAMETHASONE VALER 0.1% OINT 15 GM TUBE TP SCH ×2 (10:49→22:23)
[2017-06-19] MEDS: NICOTINE 21 MG/24 HOURS TOPICAL PATCH TD SCH (10:49)
[2017-06-19] MEDS: AZITHROMYCIN 250 MG TABLET PO SCH (10:49)
[2017-06-19] MEDS: FLUOCINONIDE 0.05% CREAM (60 GM TUBE) TP SCH ×2 (10:50→22:22)
[2017-06-19] MEDS: levETIRAcetam 500 MG TABLET (FP) PO SCH ×2 (10:50→22:22)
--- NOTE | 2017-06-19 15:45 | PN ---
S Progress Note (SOAP) Subjective: alert oriented x 3 steady gait no acute distress, less tremor no sweat Objective: 06/19/17 15:45 Vital Signs Temperature 97.5 F L 06/19/17 15:12 Pulse Rate 84 06/19/17 15:12 Respiratory Rate 20 06/19/17 15:12 Blood Pressure 113/64 06/19/17 15:12 O2 Sat by Pulse Oximetry (%) Laboratory Last Values WBC 11.2 K/mm3 (4.0-10.0) H D 06/15/17 07:00 RBC 4.53 M/mm3 (3.60-5.2) 06/15/17 07:00 Hgb 12.7 GM/dL (10.7-15.3) 06/15/17 07:00 Hct 37.1 % (32.4-45.2) 06/15/17 07:00 MCV 81.9 fl (80-96) 06/15/17 07:00 MCH 28.1 pg (25.7-33.7) 06/15/17 07:00 MCHC 34.3 g/dl (32.0-36.0) 06/15/17 07:00 RDW 15.7 % (11.6-15.6) H 06/15/17 07:00 Plt Count 356 K/MM3 (134-434) D 06/15/17 07:00 MPV 7.2 fl (7.5-11.1) L 06/15/17 07:00 Sodium 140 mmol/L (136-145) 06/15/17 07:00 Potassium 4.5 mmol/L (3.5-5.1) 06/15/17 07:00 Chloride 100 mmol/L (98-107) 06/15/17 07:00 Carbon Dioxide 29 mmol/L (21-32) 06/15/17 07:00 Anion Gap 11 (8-16) 06/15/17 07:00 BUN 11 mg/dL (7-18) 06/15/17 07:00 Creatinine 0.6 mg/dL (0.55-1.02) 06/15/17 07:00 Creat Clearance w eGFR > 60 (>60) 06/15/17 07:00 Random Glucose 76 mg/dL (74-106) 06/15/17 07:00 Calcium 9.6 mg/dL (8.5-10.1) 06/15/17 07:00 Total Bilirubin 0.3 mg/dL (0.2-1.0) D 06/15/17 07:00 AST 16 U/L (15-37) 06/15/17 07:00 ALT 13 U/L (12-78) 06/15/17 07:00 Alkaline Phosphatase 127 U/L (45-117) H 06/15/17 07:00 Total Protein 7.8 g/dl (6.4-8.2) 06/15/17 07:00 Albumin 3.8 g/dl (3.4-5.0) 06/15/17 07:00 Urine Color Ltyellow 06/14/17 15:00 Urine Appearance Clear 06/14/17 15:00 Urine pH 6.0 (5.0-8.0) 06/14/17 15:00 Ur Specific [place] 1.010 (1.001-1.035) 06/14/17 15:00 Urine Protein Negative (NEGATIVE) 06/14/17 15:00 Urine Glucose (UA) Negative (NEGATIVE) 06/14/17 15:00 Urine Ketones Negative (NEGATIVE) 06/14/17 15:00 Urine Blood Negative (NEGATIVE) 06/14/17 15:00 Urine Nitrite Negative (NEGATIVE) 06/14/17 15:00 Urine Bilirubin Negative (NEGATIVE) 06/14/17 15:00 Urine Urobilinogen Negative mg/dL (0.2-1.0) 06/14/17 15:00 Ur Leukocyte Esterase Negative (NEGATIVE) 06/14/17 15:00 RPR Titer Nonreactive (NONREACTIVE) 06/15/17 07:00 HIV 1&2 Antibody Screen Negative 06/15/17 07:00 HIV P24 Antigen Negative 06/15/17 07:00 lab noted Assessment: 06/19/17 15:46 mild withdrawal sx Plan: medically supervised detox
[2017-06-19 17:21] VITALS: TEMP 98.1
[2017-06-19] MEDS ORDERED: QUEtiapine FUMARATE 100 MG TABLET (FP) ONE (21:21)
[2017-06-19] MEDS: THIAMINE HCL 100 MG TABLET (FP) PO SCH (22:21)
[2017-06-19] MEDS: QUEtiapine FUMARATE 300 MG TABLET PO SCH (22:23)
[2017-06-19 22:53] VITALS: BP 115/65; PULSE 86
[2017-06-20] MEDS: hydrOXYzine PAMOATE 50 MG CAPSULE (FP) PO SCH ×2 (04:23→10:05)
[2017-06-20] MEDS: MENTHOL/PHENOL 1 EACH UD MM PRN ×2 (04:24→10:08)
[2017-06-20] MEDS: NICOTINE POLACRILEX 4 MG GUM BUC PRN ×2 (04:26→10:08)
[2017-06-20] MEDS: GABAPENTIN 300 MG CAPSULE (FP) PO SCH (07:50)
--- NOTE | 2017-06-20 09:32 | DS ---
[facility] Detox Discharge Summary Admission Date: 06/14/17 Discharge Date: 06/20/17 - History Present History: Alcohol Dependence, Opioid Dependence Additional Comments: 31 years old female admitted for alcohol and opiate detox, completed detox today denies withdrawal sx denies pain alert oriented x 3 steady gait no acute distress cardiac s1s2 lung clear bilaterally abdomen soft none tenderness extremities full range of motion - Physical Exam Results Vital Signs: Vital Signs Temperature 98.1 F 06/19/17 22:52 Pulse Rate 86 06/19/17 22:52 Respiratory Rate 18 06/20/17 03:30 Blood Pressure 115/65 06/19/17 22:52 O2 Sat by Pulse Oximetry (%) Pertinent Admission Physical Exam Findings: withdrawal sx Vital Signs Temperature 98.1 F 06/19/17 22:52 Pulse Rate 86 06/19/17 22:52 Respiratory Rate 18 06/20/17 03:30 Blood Pressure 115/65 06/19/17 22:52 O2 Sat by Pulse Oximetry (%) Laboratory Last Values WBC 11.2 K/mm3 (4.0-10.0) H D 06/15/17 07:00 RBC 4.53 M/mm3 (3.60-5.2) 06/15/17 07:00 Hgb 12.7 GM/dL (10.7-15.3) 06/15/17 07:00 Hct 37.1 % (32.4-45.2) 06/15/17 07:00 MCV 81.9 fl (80-96) 06/15/17 07:00 MCH 28.1 pg (25.7-33.7) 06/15/17 07:00 MCHC 34.3 g/dl (32.0-36.0) 06/15/17 07:00 RDW 15.7 % (11.6-15.6) H 06/15/17 07:00 Plt Count 356 K/MM3 (134-434) D 06/15/17 07:00 MPV 7.2 fl (7.5-11.1) L 06/15/17 07:00 Sodium 140 mmol/L (136-145) 06/15/17 07:00 Potassium 4.5 mmol/L (3.5-5.1) 06/15/17 07:00 Chloride 100 mmol/L (98-107) 06/15/17 07:00 Carbon Dioxide 29 mmol/L (21-32) 06/15/17 07:00 Anion Gap 11 (8-16) 06/15/17 07:00 BUN 11 mg/dL (7-18) 06/15/17 07:00 Creatinine 0.6 mg/dL (0.55-1.02) 06/15/17 07:00 Creat Clearance w eGFR > 60 (>60) 06/15/17 07:00 Random Glucose 76 mg/dL (74-106) 06/15/17 07:00 Calcium 9.6 mg/dL (8.5-10.1) 06/15/17 07:00 Total Bilirubin 0.3 mg/dL (0.2-1.0) D 06/15/17 07:00 AST 16 U/L (15-37) 06/15/17 07:00 ALT 13 U/L (12-78) 06/15/17 07:00 Alkaline Phosphatase 127 U/L (45-117) H 06/15/17 07:00 Total Protein 7.8 g/dl (6.4-8.2) 06/15/17 07:00 Albumin 3.8 g/dl (3.4-5.0) 06/15/17 07:00 Urine Color Ltyellow 06/14/17 15:00 Urine Appearance Clear 06/14/17 15:00 Urine pH 6.0 (5.0-8.0) 06/14/17 15:00 Ur Specific [place] 1.010 (1.001-1.035) 06/14/17 15:00 Urine Protein Negative (NEGATIVE) 06/14/17 15:00 Urine Glucose (UA) Negative (NEGATIVE) 06/14/17 15:00 Urine Ketones Negative (NEGATIVE) 06/14/17 15:00 Urine Blood Negative (NEGATIVE) 06/14/17 15:00 Urine Nitrite Negative (NEGATIVE) 06/14/17 15:00 Urine Bilirubin Negative (NEGATIVE) 06/14/17 15:00 Urine Urobilinogen Negative mg/dL (0.2-1.0) 06/14/17 15:00 Ur Leukocyte Esterase Negative (NEGATIVE) 06/14/17 15:00 RPR Titer Nonreactive (NONREACTIVE) 06/15/17 07:00 HIV 1&2 Antibody Screen Negative 06/15/17 07:00 HIV P24 Antigen Negative 06/15/17 07:00 lab noted - Treatment Hospital Course: Detox Protocol Followed, Detoxed Safely, Responded well, Discharged Condition Good, Rehab Referral Accepted Patient has Accepted a Rehab Referral to: [facility] - Medication Discharge Medications: Ambulatory Orders Zolpidem Tartrate [Ambien] 10 mg PO HS 12/10/14 levETIRAcetam [Keppra -] 750 mg PO BID 12/10/14 hydrOXYzine PAMOATE [Vistaril -] 50 mg PO TID 06/14/17 Quetiapine Fumarate [Seroquel -] 50 mg PO DAILY #30 tablet 06/15/17 Quetiapine Fumarate [Seroquel -] 300 mg PO HS #30 tablet 06/15/17 hydrOXYzine PAMOATE [Vistaril -] 50 mg PO Q4H #120 capsule 06/15/17 Albuterol Sulfate Inhaler - [Ventolin HFA Inhaler -] 2 inh PO Q4H PRN #1 inhaler 06/20/17 Budesonide/Formeterol Fumarate [SYMBICORT 160/4.5mcg -] 1 inh PO BID #1 inhaler 06/20/17 cloNIDine HCL [Catapres -] 0.1 mg PO BID #60 tablet 06/20/17 levETIRAcetam [Keppra -] 750 mg PO BID #60 tablet 06/20/17 - Diagnosis (1) Alcohol dependence with withdrawal Current Visit: Yes Status: Acute Qualifiers: Complication of substance-induced condition: uncomplicated Qualified Code(s ): F10.230 - Alcohol dependence with withdrawal, uncomplicated (2) Opioid dependence with withdrawal Current Visit: Yes Status: Acute - AMA Did Patient Leave Against Medical Advice: No
[2017-06-20] MEDS: PRENATAL VITAMINS W/ FOLIC ACID TABLET (FP) PO SCH (10:03)
[2017-06-20] MEDS: BUDESONIDE/FORMETEROL FUMARATE 160/4.5 mcg INHALER IH SCH (10:03)
[2017-06-20] MEDS: levETIRAcetam 500 MG TABLET (FP) PO SCH (10:04)
[2017-06-20] MEDS: AZITHROMYCIN 250 MG TABLET PO SCH (10:05)
[2017-06-20] MEDS: cloNIDine HCL 0.1 MG TABLET PO SCH (10:06)
[2017-06-20] MEDS: QUEtiapine FUMARATE 50 MG TABLET PO SCH (10:06)
[2017-06-20] MEDS: NICOTINE 21 MG/24 HOURS TOPICAL PATCH TD SCH (11:02)
[2017-06-20] MEDS: FLUOCINONIDE 0.05% CREAM (60 GM TUBE) TP SCH (11:02)
[2017-06-20] MEDS: BETAMETHASONE VALER 0.1% OINT 15 GM TUBE TP SCH (11:02)
== END 2017-06-20 10:25 | disposition other institution (70) | DRG 773 ==
LOC: YASAS 11:19 → Y6N 17:51
PROVIDERS: ADMIT Internal Medicine; ATTEND Internal Medicine
PROC: HZ2ZZZZ Detoxification Services for Substance Abuse Treatment (ICD-10-PCS; principal; 2017-06-14)
DX: F11.23 Opioid dependence with withdrawal (principal); F10.230 Alcohol dependence with withdrawal, uncomplicated; F14.20 Cocaine dependence, uncomplicated; F12.20 Cannabis dependence, uncomplicated; F17.210 Nicotine dependence, cigarettes, uncomplicated; F43.10 Post-traumatic stress disorder, unspecified; F41.9 Anxiety disorder, unspecified; F31.9 Bipolar disorder, unspecified; F69 Unspecified disorder of adult personality and behavior; Z63.4 Disappearance and death of family member; Z91.5 Personal history of self-harm
CPT/HCPCS: 36415; 80053; 81003; 85027; 86593; 87389; 93005; 93010; J0735

== ENCOUNTER 2017-06-20 11:16 | Inpatient (IN) | payer OTHER ==
[2017-06-20 12:44] VITALS: BMI 26.4
[2017-06-20] MEDS ORDERED: ALBUTEROL SO4 18 GM HFA INHALER IH PRN (13:03)
[2017-06-20] MEDS ORDERED: IBUPROFEN 400 MG TABLET (FP) PO PRN (13:03)
[2017-06-20] MEDS ORDERED: ACETAMINOPHEN 325 MG TABLET (FP) PO PRN (13:03)
[2017-06-20] MEDS ORDERED: guaiFENesin/D-METHORPHAN HB 10 ML UNIT-DOSE CUPS PO PRN (13:03)
[2017-06-20] MEDS ORDERED: LOPERAMIDE HCL 2 MG CAPSULE PO PRN (13:03)
[2017-06-20] MEDS ORDERED: MAGNESIUM HYDROX 2400MG/30ML ORAL SUSPENSION 30 ML CUP PO PRN (13:03)
[2017-06-20] MEDS ORDERED: P-EPHED 60MG/TRIPROLIDI 2.5MG TABLET PO PRN (13:03)
[2017-06-20] MEDS ORDERED: MAG HYDROX/AL HYDROX/SIMETH 30 ML UNIT-DOSE CUP PO PRN (13:03)
[2017-06-20] MEDS ORDERED: MAGNESIUM CITRATE 300 ML BOTTLE PO PRN (13:03)
--- NOTE | 2017-06-20 13:05 | HP ---
[facility] Rehab Assess/Revision - Admission History Admitted to Rehab from: [facility] Date of Admission to Rehab: 06/20/17 - Vital signs Vital Signs: Vital Signs Period Temp Pulse Resp BP Sys/Mckinney Pulse Ox Last 24 Hr 98.1 F-98.1 F 76 18 104/66 - Findings Detox History & Physical reviewed: Yes Concur with findings: Yes Inpatient Rehab Admission - Initial Determination Are CD services needed?: Yes Free of communicable disease: Yes Not in need of hospitalization: Yes - Rehab Admission Criteria Previous failed treatment: Yes Poor recovery environment: Yes Comorbidities: Yes Lacks judgement: Yes Patient is meeting Inpatient Rehab admission criteria:: Yes
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
[2017-06-20] MEDS: GABAPENTIN 300 MG CAPSULE (FP) PO SCH ×2 (14:52→21:43)
[2017-06-20] MEDS ORDERED: HALOPERIDOL 2 MG TABLET PO PRN (15:23)
[2017-06-20] MEDS: MENTHOL/PHENOL 1 EACH UD MM PRN ×2 (17:02→21:47)
[2017-06-20] MEDS: THIAMINE HCL 100 MG TABLET (FP) PO SCH (21:43)
[2017-06-20] MEDS ORDERED: levETIRAcetam 500 MG TABLET (FP) PO ONE (21:45)
[2017-06-20] MEDS ORDERED: levETIRAcetam 250 MG TABLET (FP) PO ONE (21:45)
[2017-06-20] MEDS: QUEtiapine FUMARATE 300 MG TABLET PO SCH (21:46)
[2017-06-20] MEDS: cloNIDine HCL 0.1 MG TABLET PO SCH (21:47)
[2017-06-20] MEDS: BUDESONIDE/FORMETEROL FUMARATE 160/4.5 mcg INHALER IH SCH (21:48)
[2017-06-20] MEDS: TOPIRAMATE 25 MG TABLET (FP) PO SCH (21:48)
[2017-06-20] MEDS ORDERED: PATIENT'S OWN MEDICATION (NON-FORMULARY) (Levetiracetam [Keppra -] 750 MG) PO SCH (22:00)
[2017-06-21] MEDS: hydrOXYzine PAMOATE 50 MG CAPSULE (FP) PO PRN ×3 (02:14→16:51)
[2017-06-21] MEDS: NICOTINE POLACRILEX 2 MG GUM BUC PRN ×5 (02:15→14:49)
[2017-06-21] MEDS: GABAPENTIN 300 MG CAPSULE (FP) PO SCH (06:31)
[2017-06-21] MEDS ORDERED: levETIRAcetam 250 MG TABLET (FP) PO ONE ×2 (08:38→19:46)
[2017-06-21] MEDS ORDERED: levETIRAcetam 500 MG TABLET (FP) PO ONE ×2 (08:38→19:46)
[2017-06-21] MEDS: cloNIDine HCL 0.1 MG TABLET PO SCH ×2 (09:02→22:45)
[2017-06-21] MEDS: PRENATAL VITAMINS W/ FOLIC ACID TABLET (FP) PO SCH (09:29)
[2017-06-21] MEDS: TOPIRAMATE 25 MG TABLET (FP) PO SCH ×2 (09:29→22:48)
[2017-06-21] MEDS: NICOTINE 14 MG/24 HOURS TOPICAL PATCH TD SCH (09:30)
[2017-06-21] MEDS: BUDESONIDE/FORMETEROL FUMARATE 160/4.5 mcg INHALER IH SCH ×2 (09:30→22:48)
[2017-06-21] MEDS ORDERED: QUEtiapine FUMARATE 50 MG TABLET PO SCH (10:00)
--- NOTE | 2017-06-21 10:00 | PN ---
S Progress Note Note: WITHDRAWAL SYMPTOM Vital Signs Temperature 98.0 F 06/21/17 06:55 Pulse Rate 85 06/21/17 06:55 Respiratory Rate 18 06/21/17 06:55 Blood Pressure 116/83 06/21/17 06:55 O2 Sat by Pulse Oximetry (%) WILL GIVE FLEXERIL 10 MGS PO TID PRN FOR 72 HRS CONTINUE CLONIDINE 0.1 MG PO BID CLOSE MONITORING
[2017-06-21] MEDS: CYCLOBENZAPRINE HCL 10 MG TABLET (FP) PO PRN (11:24)
[2017-06-21] MEDS ORDERED: BUPRENORPHINE/NALOXONE 2 MG/0.5 MG FILM PACKET SL ONE (11:55)
[2017-06-21] MEDS ORDERED: ONDANSETRON *ODT* 4 MG TABLET SL ONE (11:57)
[2017-06-21] MEDS ORDERED: ONDANSETRON *ODT* 4 MG TABLET SL PRN (11:57)
--- NOTE | 2017-06-21 12:00 | PN ---
S Progress Note (SOAP) Subjective: c/o opioid withdrawal sx, nausea, vomiting, diarrhea chills, sweats, body aches , Objective: 06/21/17 11:58 Vital Signs - 24 hr 06/20/17 06/21/17 06/21/17 12:43 00:30 03:30 Temperature 98.1 F Pulse Rate Respiratory 18 18 Rate Blood Pressure 06/21/17 06/21/17 06:55 09:40 Temperature 98.0 F Pulse Rate 85 106 H Respiratory 18 18 Rate Blood Pressure 116/83 134/76 reveiwed, elevated wbc most likely to withdrawal and no keppra level done, patien exhibiting withdrawal sx, rocking, sweats, anxiety, agitation Assessment: 06/21/17 11:59 oud start mat with suboxone 4mg today, 8mg tomorrow will follow logan focus on discharge, increase clonidien, naprosxen, zofran, melatonin, symptomatic relief
[2017-06-21] MEDS: PANTOPRAZOLE 40 MG TABLET (FP) PO SCH (13:00)
[2017-06-21] MEDS: NAPROXEN 500 MG TABLET (FP) PO SCH ×2 (13:00→22:47)
[2017-06-21] MEDS: GABAPENTIN 400 MG CAPSULE (FP) PO SCH ×2 (13:02→22:47)
[2017-06-21] MEDS: COLLOIDAL OATMEAL 1 BAR EACH TP PRN (13:04)
[2017-06-21] MEDS ORDERED: PT OWN MED DRAWER 7, Y5N ONE (14:00)
[2017-06-21] MEDS: MENTHOL/PHENOL 1 EACH UD MM PRN (14:48)
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
[2017-06-21] MEDS: MELATONIN 5 MG TABLETS PO SCH (22:46)
[2017-06-21] MEDS: QUEtiapine FUMARATE 300 MG TABLET PO SCH (22:47)
[2017-06-21] MEDS: THIAMINE HCL 100 MG TABLET (FP) PO SCH (22:48)
[2017-06-22] MEDS: CYCLOBENZAPRINE HCL 10 MG TABLET (FP) PO PRN (00:59)
[2017-06-22] MEDS: NICOTINE POLACRILEX 2 MG GUM BUC PRN ×5 (01:00→18:53)
[2017-06-22] MEDS: GABAPENTIN 400 MG CAPSULE (FP) PO SCH ×3 (06:12→21:25)
[2017-06-22] MEDS: hydrOXYzine PAMOATE 50 MG CAPSULE (FP) PO PRN (06:12)
[2017-06-22] MEDS: MENTHOL/PHENOL 1 EACH UD MM PRN (07:27)
[2017-06-22] MEDS ORDERED: levETIRAcetam 250 MG TABLET (FP) PO ONE ×2 (08:57→20:28)
[2017-06-22] MEDS ORDERED: levETIRAcetam 500 MG TABLET (FP) PO ONE ×2 (08:57→20:28)
[2017-06-22] MEDS ORDERED: BUPRENORPHINE/NALOXONE 8 MG/2 MG FILM PACKET SL SCH (10:00)
[2017-06-22] MEDS: PRENATAL VITAMINS W/ FOLIC ACID TABLET (FP) PO SCH (10:04)
[2017-06-22] MEDS: cloNIDine HCL 0.1 MG TABLET PO SCH ×2 (10:04→21:26)
[2017-06-22] MEDS: NICOTINE 14 MG/24 HOURS TOPICAL PATCH TD SCH (10:05)
[2017-06-22] MEDS: NAPROXEN 500 MG TABLET (FP) PO SCH ×2 (10:05→21:25)
[2017-06-22] MEDS: TOPIRAMATE 25 MG TABLET (FP) PO SCH ×2 (10:05→21:28)
[2017-06-22] MEDS: PANTOPRAZOLE 40 MG TABLET (FP) PO SCH (10:05)
[2017-06-22] MEDS: BUDESONIDE/FORMETEROL FUMARATE 160/4.5 mcg INHALER IH SCH ×2 (10:06→21:27)
[2017-06-22 10:13] LABS: BASO % 0.8 % (0-2.0); HEMATOCRIT 38.5 % (32.4-45.2); LYMPH % 26.2 % (8-40); MCH 27.4 pg (25.7-33.7); MCHC 33.8 g/dl (32.0-36.0); MEAN PLT VOLUME 7.2 fl (7.5-11.1); MONO % 7.5 % (3.8-10.2); NEUT % 64.5 % (42.8-82.8); PLATELET COUNT 379 K/MM3 (134-434); RBC 4.75 M/mm3 (3.60-5.2); RDW 15.2 % (11.6-15.6); WHITE BLOOD COUNT 9.3 K/mm3 (4.0-10.0)
[2017-06-22] MEDS ORDERED: BUPRENORPHINE/NALOXONE 2 MG/0.5 MG FILM PACKET SL ONE (11:42)
--- NOTE | 2017-06-22 11:47 | PN ---
[facility] Progress Note Note: patient was c/o continued withdrawawl sx from opioids, will increase suboxoen to 12mg daily, give extra 4mg today now. had seizure, went to ed where theyloaded her with keppra, now medically stable level pedgin Vital Signs - 24 hr 06/21/17 06/22/17 06/22/17 22:56 07:22 09:50 Temperature 98.1 F Pulse Rate 105 H 77 83 Respiratory 18 18 Rate Blood Pressure 158/72 123/77 106/69 Laboratory Tests 06/22/17 08:47 WBC 9.3 RBC 4.75 Hgb 13.0 Hct 38.5 MCV 81.0 MCH 27.4 MCHC 33.8 RDW 15.2 Plt Count 379 MPV 7.2 L Neutrophils % 64.5 Lymphocytes % 26.2 Monocytes % 7.5 Eosinophils % 1.0 Basophils % 0.8 keppra level pending, hep c +ve, no viral nload, hiv neg a/p: oud severe - on MAT, titirate dose to effect, max dose 16mg while in rehab , schedule aftercare sehector, loaded in ed with keppra, now stable level pending Hep c+ - patient know she must follow up as outpatient when d/c from rehab for ebvaluation and rx
--- NOTE | 2017-06-22 15:19 | PN ---
Psychiatric Progress Note Vital Signs: Vital Signs Period Temp Pulse Resp BP Sys/Mckinney Pulse Ox Last 24 Hr 98.1 F 77-105 -18 106-158/69-77 Date of Session: 06/22/17 Chief Complaint:: Ronnie very nervious,evrything makes me agitated. HPI: Patient addressed alcohol,opioid,cocaine and cannabis dependence comorbid with Current Medications: Active Medications Generic Name Dose Route Start Last Admin Trade Name Freq PRN Reason Stop Dose Admin Acetaminophen 650 mg 06/20/17 13:03 Tylenol - PO Q4H PRN FEVER Al Hydroxide/Mg Hydroxide 30 ml 06/20/17 13:03 Mylanta Oral Suspension - PO Q6H PRN DYSPEPSIA Albuterol Sulfate 2 puff 06/20/17 13:03 Ventolin Hfa Inhaler - IH Q4H PRN ASTHMA Budesonide/Formoterol Fumarate 1 puff 06/20/17 22:00 06/22/17 10:06 Symbicort 160/4.5mcg - IH 1 puff BID NITO Administration Buprenorphine/Naloxone 1 each 06/23/17 10:00 Suboxone 12 Mg-3 Mg Sl Film SL 06/29/17 09:59 DAILY NITO Chlorpromazine HCl 50 mg 06/22/17 13:28 Thorazine - PO TID PRN AGITATION Clonidine 0.2 mg 06/21/17 22:00 06/22/17 10:04 Catapres - PO 0.2 mg BID NITO Administration Colloidal Oatmeal 1 applic 06/21/17 11:40 06/21/17 13:04 Aveeno Soap - TP 1 bar DAILY PRN Administration HYGEINE Cyclobenzaprine HCl 10 mg 06/21/17 09:57 06/22/17 00:59 Flexeril - PO 06/24/17 23:59 10 mg TID PRN Administration MUSCLE SPASMS Eucalyptus/Menthol/Phenol/Sorbitol 1 each 06/20/17 13:03 06/22/17 07:27 Cepastat Lozenge - MM 1 each Q4H PRN Administration SORE THROAT Gabapentin 400 mg 06/21/17 14:00 06/22/17 13:02 Neurontin - PO 400 mg TID NITO Administration Guaifenesin 10 ml 06/20/17 13:03 Robitussin Dm - PO Q6H PRN COUGH Hydroxyzine Pamoate 50 mg 06/20/17 13:03 06/22/17 06:12 Vistaril - PO 50 mg Q4H PRN Administration AGITATION Levetiracetam 500 mg/ 750 mg 06/20/17 22:00 06/22/17 10:04 Levetiracetam 250 mg PO 750 mg BID NITO Administration Loperamide HCl 4 mg 06/20/17 13:03 Imodium - PO Q6H PRN DIARRHEA Magnesium Citrate 300 ml 06/20/17 13:03 Citroma - PO Q48H PRN CONSTIPATION Magnesium Hydroxide 30 ml 06/20/17 13:03 Milk Of Magnesia - PO DAILY PRN CONSTIPATION Melatonin 5 mg 06/21/17 22:00 06/21/17 22:46 Melatonin PO Not Given HS NITO Naproxen 500 mg 06/21/17 12:00 06/22/17 10:05 Naprosyn - PO 500 mg BID NITO Administration Nicotine 14 mg 06/21/17 10:00 06/22/17 10:05 Nicoderm Patch - TD 14 mg DAILY NITO Administration Nicotine Polacrilex 2 mg 06/20/17 13:03 06/22/17 10:07 Nicorette Gum - BUC 2 mg Q2H PRN Administration NICOTINE REPLACEMENT RX Ondansetron HCl 8 mg 06/21/17 11:57 Zofran Odt - SL Q6H PRN NAUSEA AND/OR VOMITING Pantoprazole Sodium 40 mg 06/21/17 12:00 06/22/17 10:05 Protonix - PO 40 mg DAILY NITO Administration Multivit/Folic Acid/Iron 1 tab 06/21/17 10:00 06/22/17 10:04 Vitamins (Sjr) - PO 1 tab DAILY NITO Administration Pseudoephedrine/Triprolidine 1 combo 06/20/17 13:03 Actifed - PO TID PRN NASAL CONGESTION Quetiapine Fumarate 300 mg 06/20/17 22:00 06/21/17 22:47 Seroquel - PO Not Given HS NITO Thiamine HCl 100 mg 06/20/17 22:00 06/21/17 22:48 Vitamin B1 - PO Not Given HS NITO Topiramate 25 mg 06/20/17 22:00 06/22/17 10:05 Topamax - PO 25 mg BID NITO Administration Current Side Effect: No Lab tests ordered: No Lab tests reviewed: Yes Provider note:: Thorazine 50 mg po bid prn fpr agitation. Total face to face time:: 30 Psychiatric Treatment Plan - Problem List (1) Alcohol dependence Current Visit: Yes (2) Nicotine dependence Current Visit: Yes Qualifiers: Nicotine product type: cigarettes (3) PTSD (post-traumatic stress disorder) Current Visit: Yes (4) Personality disorder Current Visit: Yes (5) Seizure disorder Current Visit: No (6) Opioid dependence Current Visit: Yes (7) Cannabis dependence Current Visit: Yes (8) Cocaine dependence Current Visit: Yes Qualifiers: Substance use status: uncomplicated Qualified Code(s): F14.20 - Cocaine dependence, uncomplicated (9) Eczema Current Visit: Yes Qualifiers: Eczema type: unspecified Qualified Code(s): L30.9 - Dermatitis, unspecified (10) Hypertension Current Visit: Yes Qualifiers: Hypertension type: essential hypertension Qualified Code(s): I10 - Essential (primary) hypertension
[2017-06-22] MEDS ORDERED: PT OWN MED DRAWER 7, Y5N ONE (16:25)
[2017-06-22] MEDS: chlorproMAZINE HCL 25 MG TABLET PO PRN (16:43)
[2017-06-22] MEDS: THIAMINE HCL 100 MG TABLET (FP) PO SCH (21:26)
[2017-06-22] MEDS: MELATONIN 5 MG TABLETS PO SCH (21:26)
[2017-06-22] MEDS: QUEtiapine FUMARATE 300 MG TABLET PO SCH (21:26)
[2017-06-23] MEDS: chlorproMAZINE HCL 25 MG TABLET PO PRN ×3 (01:47→15:41)
[2017-06-23] MEDS ORDERED: PT OWN MED DRAWER 7, Y5N ONE ×5 (01:47→15:44)
[2017-06-23] MEDS: NICOTINE POLACRILEX 2 MG GUM BUC PRN ×5 (03:45→18:44)
[2017-06-23] MEDS: hydrOXYzine PAMOATE 50 MG CAPSULE (FP) PO PRN ×2 (06:21→18:44)
[2017-06-23] MEDS: GABAPENTIN 400 MG CAPSULE (FP) PO SCH ×3 (06:21→21:45)
[2017-06-23] MEDS: MENTHOL/PHENOL 1 EACH UD MM PRN (06:22)
[2017-06-23] MEDS ORDERED: levETIRAcetam 500 MG TABLET (FP) PO ONE ×2 (08:25→19:57)
[2017-06-23] MEDS ORDERED: levETIRAcetam 250 MG TABLET (FP) PO ONE ×2 (08:25→19:57)
[2017-06-23] MEDS: cloNIDine HCL 0.1 MG TABLET PO SCH ×2 (10:00→21:45)
[2017-06-23] MEDS ORDERED: BUPRENORPHINE HCL/NALOXONE 12 MG-3 MG SL FILM PACKET SL SCH (10:00)
[2017-06-23] MEDS: PANTOPRAZOLE 40 MG TABLET (FP) PO SCH (10:01)
[2017-06-23] MEDS: NAPROXEN 500 MG TABLET (FP) PO SCH ×2 (10:01→21:45)
[2017-06-23] MEDS: PRENATAL VITAMINS W/ FOLIC ACID TABLET (FP) PO SCH (10:02)
[2017-06-23] MEDS: TOPIRAMATE 25 MG TABLET (FP) PO SCH ×2 (10:02→21:45)
[2017-06-23] MEDS: NICOTINE 14 MG/24 HOURS TOPICAL PATCH TD SCH (10:02)
[2017-06-23] MEDS: BUDESONIDE/FORMETEROL FUMARATE 160/4.5 mcg INHALER IH SCH ×2 (10:03→21:47)
--- NOTE | 2017-06-23 13:26 | PN ---
[facility] Progress Note Note: Patient c/o of increase pruritus, sweats, difficulty sleeping, anxious and continues experience cravings. Reports while out patient was using M2 in addition to heroin. Patient reports discussed after care plans with counselor and the plan is for patient to attend [facility]. Patient reports she does not wish attend out patient groups of attend [facility]. Vital Signs Temperature 98.0 F 06/23/17 06:50 Pulse Rate 86 06/23/17 06:50 Respiratory Rate 18 06/23/17 06:50 Blood Pressure 107/66 06/23/17 06:50 O2 Sat by Pulse Oximetry (%) Laboratory Last Values WBC 9.3 K/mm3 (4.0-10.0) 06/22/17 08:47 RBC 4.75 M/mm3 (3.60-5.2) 06/22/17 08:47 Hgb 13.0 GM/dL (10.7-15.3) 06/22/17 08:47 Hct 38.5 % (32.4-45.2) 06/22/17 08:47 MCV 81.0 fl (80-96) 06/22/17 08:47 MCH 27.4 pg (25.7-33.7) 06/22/17 08:47 MCHC 33.8 g/dl (32.0-36.0) 06/22/17 08:47 RDW 15.2 % (11.6-15.6) 06/22/17 08:47 Plt Count 379 K/MM3 (134-434) 06/22/17 08:47 MPV 7.2 fl (7.5-11.1) L 06/22/17 08:47 Neutrophils % 64.5 % (42.8-82.8) 06/22/17 08:47 Lymphocytes % 26.2 % (8-40) 06/22/17 08:47 Monocytes % 7.5 % (3.8-10.2) 06/22/17 08:47 Eosinophils % 1.0 % (0-4.5) 06/22/17 08:47 Basophils % 0.8 % (0-2.0) 06/22/17 08:47 labs ordered for keppra levels, pending ROS: General: anxious, and difficulty sleeping HR: denies no chest pain, palpitations, SOB Neuro: denies dizziness, or paresthesia, + shaky Endo: sweats Musc: denies stiffness or pain Assessment: GENERAL APPEARANCE: Well developed, well nourished, alert and cooperative, and appears to be in no acute distress. CARDIAC: Normal S1 and S2. No S3, S4 or murmurs. Rhythm is regular. No edema LUNGS: Clear to auscultation and percussion without rales, rhonchi, wheezing or diminished breath sounds. MUSKULOSKELETAL: ROM intact spine and extremities. No joint erythema or tenderness. Normal muscular development. Normal gait. NEUROLOGICAL: CN II-XII intact. SKIN: Skin no lesions or eruptions. + dry flaky skin PSYCHIATRIC: + anxious Plan: Increase suboxone to 16 mg on 06/24/17 Increase fluids Continue to follow up with psychiatrist Patient to follow up with counselor regarding after care plans Continue to monitor
[2017-06-23] MEDS: BENZTROPINE MESYLATE 1 MG TABLET (FP) PO PRN (15:40)
[2017-06-23] MEDS: THIAMINE HCL 100 MG TABLET (FP) PO SCH (21:44)
[2017-06-23] MEDS: QUEtiapine FUMARATE 300 MG TABLET PO SCH (21:45)
[2017-06-23] MEDS: MELATONIN 5 MG TABLETS PO SCH (21:47)
[2017-06-24] MEDS ORDERED: PT OWN MED DRAWER 7, Y5N ONE ×3 (04:11→12:45)
[2017-06-24] MEDS: BENZTROPINE MESYLATE 1 MG TABLET (FP) PO PRN (04:11)
[2017-06-24] MEDS: COLLOIDAL OATMEAL 1 BAR EACH TP PRN (04:11)
[2017-06-24] MEDS: chlorproMAZINE HCL 25 MG TABLET PO PRN (04:12)
[2017-06-24] MEDS: MENTHOL/PHENOL 1 EACH UD MM PRN ×3 (04:14→21:44)
[2017-06-24] MEDS: NICOTINE POLACRILEX 2 MG GUM BUC PRN ×2 (04:16→14:06)
[2017-06-24] MEDS: GABAPENTIN 400 MG CAPSULE (FP) PO SCH ×3 (06:26→21:41)
[2017-06-24] MEDS ORDERED: levETIRAcetam 500 MG TABLET (FP) PO ONE (08:27)
[2017-06-24] MEDS ORDERED: levETIRAcetam 250 MG TABLET (FP) PO ONE (08:27)
[2017-06-24] MEDS: cloNIDine HCL 0.1 MG TABLET PO SCH ×2 (10:35→21:41)
[2017-06-24] MEDS: BUPRENORPHINE/NALOXONE 8 MG/2 MG FILM PACKET SL SCH (10:35)
[2017-06-24] MEDS: NAPROXEN 500 MG TABLET (FP) PO SCH ×2 (10:36→21:41)
[2017-06-24] MEDS: PRENATAL VITAMINS W/ FOLIC ACID TABLET (FP) PO SCH (10:36)
[2017-06-24] MEDS: BUDESONIDE/FORMETEROL FUMARATE 160/4.5 mcg INHALER IH SCH ×2 (10:36→21:44)
[2017-06-24] MEDS: TOPIRAMATE 25 MG TABLET (FP) PO SCH ×2 (10:36→21:41)
[2017-06-24] MEDS: NICOTINE 14 MG/24 HOURS TOPICAL PATCH TD SCH (10:36)
[2017-06-24] MEDS: PANTOPRAZOLE 40 MG TABLET (FP) PO SCH (10:36)
[2017-06-24] MEDS: hydrOXYzine PAMOATE 50 MG CAPSULE (FP) PO PRN (12:52)
[2017-06-24] MEDS: MELATONIN 5 MG TABLETS PO SCH (21:41)
[2017-06-24] MEDS: levETIRAcetam 500 MG TABLET (FP) PO SCH (21:41)
[2017-06-24] MEDS: QUEtiapine FUMARATE 300 MG TABLET PO SCH (21:41)
[2017-06-24] MEDS: THIAMINE HCL 100 MG TABLET (FP) PO SCH (21:45)
--- NOTE | 2017-06-24 22:16 | PN ---
[facility] Progress Note Note: Note delayed: Psychiatric nurse practitoner note: Call received by RN concerning patient signing out AMA and requesting psychiatrist to send prescription electronically to [facility]. Gyn informed RN that no prescriptions of medications will be sent to pharmacy due to continuity writer not knowing patient. RN then informed continuity writer that patient has decided to stay and will not be signing out AMA.
[2017-06-25] MEDS: hydrOXYzine PAMOATE 50 MG CAPSULE (FP) PO PRN ×2 (02:48→15:34)
[2017-06-25] MEDS: NICOTINE POLACRILEX 2 MG GUM BUC PRN ×4 (02:49→15:35)
[2017-06-25] MEDS: GABAPENTIN 400 MG CAPSULE (FP) PO SCH ×3 (06:29→21:34)
[2017-06-25] MEDS ORDERED: PT OWN MED DRAWER 7, Y5N ONE ×5 (08:51→15:28)
[2017-06-25] MEDS: NICOTINE 14 MG/24 HOURS TOPICAL PATCH TD SCH (10:09)
[2017-06-25] MEDS: cloNIDine HCL 0.1 MG TABLET PO SCH ×2 (10:10→21:34)
[2017-06-25] MEDS: levETIRAcetam 500 MG TABLET (FP) PO SCH ×2 (10:10→21:34)
[2017-06-25] MEDS: BUDESONIDE/FORMETEROL FUMARATE 160/4.5 mcg INHALER IH SCH ×2 (10:10→21:35)
[2017-06-25] MEDS: PRENATAL VITAMINS W/ FOLIC ACID TABLET (FP) PO SCH (10:11)
[2017-06-25] MEDS: TOPIRAMATE 25 MG TABLET (FP) PO SCH ×2 (10:11→21:34)
[2017-06-25] MEDS: PANTOPRAZOLE 40 MG TABLET (FP) PO SCH (10:11)
[2017-06-25] MEDS: NAPROXEN 500 MG TABLET (FP) PO SCH ×2 (10:11→21:34)
[2017-06-25] MEDS: BUPRENORPHINE/NALOXONE 8 MG/2 MG FILM PACKET SL SCH (10:12)
[2017-06-25] MEDS: BENZTROPINE MESYLATE 1 MG TABLET (FP) PO PRN (10:13)
[2017-06-25] MEDS: chlorproMAZINE HCL 25 MG TABLET PO PRN (10:14)
[2017-06-25] MEDS: MENTHOL/PHENOL 1 EACH UD MM PRN ×2 (10:16→15:34)
[2017-06-25] MEDS: QUEtiapine FUMARATE 300 MG TABLET PO SCH (21:34)
[2017-06-25] MEDS: MELATONIN 5 MG TABLETS PO SCH (21:34)
[2017-06-25] MEDS: THIAMINE HCL 100 MG TABLET (FP) PO SCH (21:35)
[2017-06-26] MEDS: hydrOXYzine PAMOATE 50 MG CAPSULE (FP) PO PRN ×3 (02:34→12:05)
[2017-06-26] MEDS: NICOTINE POLACRILEX 2 MG GUM BUC PRN ×4 (02:35→16:09)
[2017-06-26] MEDS: GABAPENTIN 400 MG CAPSULE (FP) PO SCH ×3 (06:25→21:33)
[2017-06-26] MEDS: cloNIDine HCL 0.1 MG TABLET PO SCH ×2 (09:06→21:34)
[2017-06-26] MEDS: COLLOIDAL OATMEAL 1 BAR EACH TP PRN (09:37)
[2017-06-26] MEDS: BUDESONIDE/FORMETEROL FUMARATE 160/4.5 mcg INHALER IH SCH ×2 (09:38→21:34)
[2017-06-26] MEDS: levETIRAcetam 500 MG TABLET (FP) PO SCH ×2 (09:38→21:33)
[2017-06-26] MEDS: NICOTINE 14 MG/24 HOURS TOPICAL PATCH TD SCH (09:38)
[2017-06-26] MEDS: TOPIRAMATE 25 MG TABLET (FP) PO SCH ×2 (09:38→21:33)
[2017-06-26] MEDS: PRENATAL VITAMINS W/ FOLIC ACID TABLET (FP) PO SCH (09:39)
[2017-06-26] MEDS: PANTOPRAZOLE 40 MG TABLET (FP) PO SCH (09:39)
[2017-06-26] MEDS: NAPROXEN 500 MG TABLET (FP) PO SCH ×2 (09:39→21:34)
[2017-06-26] MEDS: BUPRENORPHINE/NALOXONE 8 MG/2 MG FILM PACKET SL SCH (09:39)
[2017-06-26] MEDS: MENTHOL/PHENOL 1 EACH UD MM PRN ×2 (13:10→21:36)
[2017-06-26] MEDS ORDERED: PT OWN MED DRAWER 7, Y5N ONE (16:09)
[2017-06-26] MEDS: BENZTROPINE MESYLATE 1 MG TABLET (FP) PO PRN (16:10)
[2017-06-26] MEDS: chlorproMAZINE HCL 25 MG TABLET PO PRN (16:10)
[2017-06-26] MEDS: MELATONIN 5 MG TABLETS PO SCH (21:33)
[2017-06-26] MEDS: QUEtiapine FUMARATE 300 MG TABLET PO SCH (21:50)
[2017-06-26] MEDS: THIAMINE HCL 100 MG TABLET (FP) PO SCH (21:50)
[2017-06-27] MEDS: BENZTROPINE MESYLATE 1 MG TABLET (FP) PO PRN (00:45)
[2017-06-27] MEDS: chlorproMAZINE HCL 25 MG TABLET PO PRN (00:46)
[2017-06-27] MEDS: GABAPENTIN 400 MG CAPSULE (FP) PO SCH (06:41)
[2017-06-27] MEDS: NICOTINE POLACRILEX 2 MG GUM BUC PRN (06:41)
[2017-06-27 07:23] VITALS: TEMP 98
[2017-06-27] MEDS ORDERED: PT OWN MED DRAWER 7, Y5N ONE (08:43)
--- NOTE | 2017-06-27 09:09 | PN ---
Psychiatric Progress Note Vital Signs: Vital Signs Period Temp Pulse Resp BP Sys/Mckinney Pulse Ox Last 24 Hr 98.0 F 75-82 -18 97-117/69-73 Date of Session: 06/27/17 Chief Complaint:: Discharge visit HPI: Alcohol,Cocaine and Opioid dependence comorbid with Bipolar disorder,PTSD, Personality disorder. ROS: BA,HTN. Current Medications: Active Medications Generic Name Dose Route Start Last Admin Trade Name Freq PRN Reason Stop Dose Admin Acetaminophen 650 mg 06/20/17 13:03 Tylenol - PO Q4H PRN FEVER Al Hydroxide/Mg Hydroxide 30 ml 06/20/17 13:03 Mylanta Oral Suspension - PO Q6H PRN DYSPEPSIA Albuterol Sulfate 2 puff 06/20/17 13:03 Ventolin Hfa Inhaler - IH Q4H PRN ASTHMA Benztropine Mesylate 0.5 mg 06/23/17 11:28 06/27/17 00:45 Cogentin - PO 0.5 mg TID PRN Administration AGITATION Budesonide/Formoterol Fumarate 1 puff 06/20/17 22:00 06/26/17 21:34 Symbicort 160/4.5mcg - IH Not Given BID NITO Buprenorphine/Naloxone 2 each 06/24/17 10:00 06/26/17 09:39 Suboxone 8mg/2mg Sl Film - SL 06/30/17 09:59 2 each DAILY NITO Administration Chlorpromazine HCl 25 mg 06/23/17 11:28 06/27/17 00:46 Thorazine - PO 25 mg TID PRN Administration AGITATION Clonidine 0.2 mg 06/21/17 22:00 06/26/17 21:34 Catapres - PO Not Given BID NITO Colloidal Oatmeal 1 applic 06/21/17 11:40 06/26/17 09:37 Aveeno Soap - TP 1 bar DAILY PRN Administration HYGEINE Eucalyptus/Menthol/Phenol/Sorbitol 1 each 06/20/17 13:03 06/26/17 21:36 Cepastat Lozenge - MM 1 each Q4H PRN Administration SORE THROAT Gabapentin 400 mg 06/21/17 14:00 06/27/17 06:41 Neurontin - PO 400 mg TID NITO Administration Guaifenesin 10 ml 06/20/17 13:03 Robitussin Dm - PO Q6H PRN COUGH Hydroxyzine Pamoate 50 mg 06/20/17 13:03 06/26/17 12:05 Vistaril - PO 50 mg Q4H PRN Administration AGITATION Levetiracetam 1,000 mg 06/24/17 22:00 06/26/17 21:33 Keppra - PO 1,000 mg BID NITO Administration Loperamide HCl 4 mg 06/20/17 13:03 Imodium - PO Q6H PRN DIARRHEA Magnesium Citrate 300 ml 06/20/17 13:03 Citroma - PO Q48H PRN CONSTIPATION Magnesium Hydroxide 30 ml 06/20/17 13:03 06/27/17 00:46 Milk Of Magnesia - PO 30 ml DAILY PRN Administration CONSTIPATION Melatonin 5 mg 06/21/17 22:00 06/26/17 21:33 Melatonin PO 5 mg HS NITO Administration Naproxen 500 mg 06/21/17 12:00 06/26/17 21:34 Naprosyn - PO Not Given BID NITO Nicotine 14 mg 06/21/17 10:00 06/26/17 09:38 Nicoderm Patch - TD 14 mg DAILY NITO Administration Nicotine Polacrilex 2 mg 06/20/17 13:03 06/27/17 06:41 Nicorette Gum - BUC 2 mg Q2H PRN Administration NICOTINE REPLACEMENT RX Ondansetron HCl 8 mg 06/21/17 11:57 Zofran Odt - SL Q6H PRN NAUSEA AND/OR VOMITING Pantoprazole Sodium 40 mg 06/21/17 12:00 06/26/17 09:39 Protonix - PO 40 mg DAILY NITO Administration Multivit/Folic Acid/Iron 1 tab 06/21/17 10:00 06/26/17 09:39 Vitamins (Sjr) - PO 1 tab DAILY NITO Administration Pseudoephedrine/Triprolidine 1 combo 06/20/17 13:03 Actifed - PO TID PRN NASAL CONGESTION Quetiapine Fumarate 300 mg 06/20/17 22:00 06/26/17 21:50 Seroquel - PO Not Given HS NITO Thiamine HCl 100 mg 06/20/17 22:00 06/26/17 21:50 Vitamin B1 - PO Not Given HS NITO Topiramate 25 mg 06/20/17 22:00 06/26/17 21:33 Topamax - PO 25 mg BID NITO Administration Current Side Effect: No Lab tests ordered: No Lab tests reviewed: Yes Provider note:: Patient completed this program today(early discharge due to family reason).Elavil 25 ,g po tid,Neuerontin 300 mg po tid ,Cogentin 0,5 mg po bid. CLARI Neville. Total face to face time:: 30 Psychiatric Treatment Plan - Problem List (1) Alcohol dependence Current Visit: Yes (2) Nicotine dependence Current Visit: Yes Qualifiers: Nicotine product type: cigarettes (3) PTSD (post-traumatic stress disorder) Current Visit: Yes (4) Personality disorder Current Visit: Yes (5) Seizure disorder Current Visit: Yes (6) Opioid dependence Current Visit: Yes (7) Cannabis dependence Current Visit: Yes (8) Cocaine dependence Current Visit: Yes Qualifiers: Substance use status: uncomplicated Qualified Code(s): F14.20 - Cocaine dependence, uncomplicated (9) Eczema Current Visit: Yes Qualifiers: Eczema type: unspecified Qualified Code(s): L30.9 - Dermatitis, unspecified (10) Hypertension Current Visit: Yes Qualifiers: Hypertension type: essential hypertension Qualified Code(s): I10 - Essential (primary) hypertension (11) Bipolar disorder Current Visit: Yes (12) Bronchial asthma Current Visit: Yes Qualifiers: Asthma severity: moderate Asthma persistence: unspecified Asthma complication type: unspecified Qualified Code(s): J45.909 - Unspecified asthma , uncomplicated
[2017-06-27] MEDS: BUPRENORPHINE/NALOXONE 8 MG/2 MG FILM PACKET SL SCH (09:12)
[2017-06-27] MEDS: PANTOPRAZOLE 40 MG TABLET (FP) PO SCH (09:12)
[2017-06-27] MEDS: levETIRAcetam 500 MG TABLET (FP) PO SCH (09:12)
[2017-06-27] MEDS: cloNIDine HCL 0.1 MG TABLET PO SCH (09:12)
[2017-06-27] MEDS: TOPIRAMATE 25 MG TABLET (FP) PO SCH (09:12)
[2017-06-27] MEDS: NAPROXEN 500 MG TABLET (FP) PO SCH (09:13)
[2017-06-27] MEDS: NICOTINE 14 MG/24 HOURS TOPICAL PATCH TD SCH (09:13)
[2017-06-27] MEDS: PRENATAL VITAMINS W/ FOLIC ACID TABLET (FP) PO SCH (09:13)
[2017-06-27] MEDS: BUDESONIDE/FORMETEROL FUMARATE 160/4.5 mcg INHALER IH SCH (09:13)
[2017-06-27 09:14] VITALS: BP 118/76; PULSE 106
== END 2017-06-27 10:50 | disposition home or self-care (01) | DRG 772 ==
LOC: YASAS 11:16 → Y3E 11:17
PROVIDERS: ADMIT Psychiatry & Neurology Psychiatry; ATTEND Psychiatry & Neurology Psychiatry
PROC: HZ42ZZZ Group Counseling for Substance Abuse Treatment, Cognitive-Behavioral (ICD-10-PCS; principal; 2017-06-20)
DX: F11.20 Opioid dependence, uncomplicated (principal); F10.20 Alcohol dependence, uncomplicated; F14.20 Cocaine dependence, uncomplicated; F12.20 Cannabis dependence, uncomplicated; F17.210 Nicotine dependence, cigarettes, uncomplicated; F31.9 Bipolar disorder, unspecified; F43.10 Post-traumatic stress disorder, unspecified; F60.9 Personality disorder, unspecified; I10 Essential (primary) hypertension; G40.89 Other seizures; L30.9 Dermatitis, unspecified; J45.909 Unspecified asthma, uncomplicated; Z91.013 Allergy to seafood
CPT/HCPCS: 36415; 85025; J0735; Q0162

== ENCOUNTER 2017-06-21 22:08 | Emergency (ER) | payer OTHER ==
[2017-06-21] MEDS ORDERED: TOPIRAMATE 25 MG TABLET (FP) PO ONE (22:16)
[2017-06-21] MEDS ORDERED: levETIRAcetam 500 MG/5 ML INJECTION VIAL IVPB ONE ×2 (22:16→22:44)
[2017-06-21 22:18] VITALS: BP 110/80; PULSE 82; TEMP 98.2; BMI 26.4
[2017-06-21] MEDS ORDERED: TOPIRAMATE 25 MG TABLET (FP) ONE (22:43)
--- NOTE | 2017-06-21 23:13 | PDOC ---
History of Present Illness <Leona Queen - Last Filed: 06/21/17 23:24> - General History Source: Patient Exam Limitations: No Limitations - History of Present Illness Initial Comments: 06/21/17 23:22 The patient is a 31 year old female with history of polysubstance abuse and seizure disorder sent from [facility] for an episode of generalized shaking activity with LOC this evening. The patient states she did not take her anti- seizure medications this evening. Symptoms began tonight while the patient was bed. No fall or injury. She denies tongue biting or urinary incontinence. <Shima Crabtree - Last Filed: 06/21/17 23:47> - General Chief Complaint: Seizure Stated Complaint: SEZIURE Time Seen by Provider: 06/21/17 22:16 Past History - Past Medical History Anemia: No Asthma: No Cancer: No Cardiac Disorders: No CVA: No COPD: No CHF: No Dementia: No Diabetes: No GI Disorders: No Disorders: No HTN: Yes Hypercholesterolemia: No Kidney Stones: No Liver Disease: No Seizures: Yes (last tuesday) Thyroid Disease: No - Surgical History Abdominal Surgery: No Appendectomy: No Cardiac Surgery: No Cholecystectomy: No Lung Surgery: No Neurologic Surgery: No Orthopedic Surgery: No - Reproductive History PID: No - Suicide/Smoking/Psychosocial Hx Smoking History: Never smoked Have you smoked in the past 12 months: No Number of Cigarettes Smoked Daily: 20 Information on smoking cessation initiated: No 'Breaking Loose' booklet given: 06/14/17 Hx Alcohol Use: No Drug/Substance Use Hx: No Substance Use Type: Alcohol, Heroin, Tranquilizers Hx Substance Use Treatment: Yes (completed detox [address] [place] [id number]) <Leona Queen - Last Filed: 06/21/17 23:24> <Shima Crabtree - Last Filed: 06/21/17 23:47> - Past Medical History Allergies/Adverse Reactions: Allergies Allergy/AdvReac Type Severity Reaction Status Date / Time Fish Containing Products Allergy Severe Rash Verified 06/21/17 22:18 lamotrigine [From Lamictal] Allergy Unknown Rash Verified 06/21/17 22:18 Home Medications: Ambulatory Orders Zolpidem Tartrate [Ambien] 10 mg PO HS 12/10/14 levETIRAcetam [Keppra -] 750 mg PO BID 12/10/14 Quetiapine Fumarate [Seroquel -] 50 mg PO DAILY #30 tablet 06/15/17 Quetiapine Fumarate [Seroquel -] 300 mg PO HS #30 tablet 06/15/17 hydrOXYzine PAMOATE [Vistaril -] 50 mg PO Q4H #120 capsule 06/15/17 Albuterol Sulfate Inhaler - [Ventolin HFA Inhaler -] 2 inh PO Q4H PRN #1 inhaler 06/20/17 Budesonide/Formeterol Fumarate [SYMBICORT 160/4.5mcg -] 1 inh PO BID #1 inhaler 06/20/17 Gabapentin [Neurontin] 300 mg PO TID 06/20/17 cloNIDine HCL [Catapres -] 0.1 mg PO BID #60 tablet 06/20/17 Review of Systems - Review of Systems Able to Perform ROS?: Yes Comments:: 06/21/17 23:45 GENERAL/CONSTITUTIONAL: No fever or chills. No weakness. HEAD, EYES, EARS, NOSE AND THROAT: No change in vision. No ear pain or discharge. No sore throat. CARDIOVASCULAR: No chest pain or shortness of breath. RESPIRATORY: No cough, wheezing, or hemoptysis. GASTROINTESTINAL: No nausea, vomiting, diarrhea or constipation. GENITOURINARY: No dysuria, frequency, or change in urination. MUSCULOSKELETAL: No joint or muscle swelling or pain. No neck or back pain. SKIN: No rash NEUROLOGIC: +Tonic clonic activity, LOC. No tongue biting, no bladder or bowel incontinence. No headache, vertigo, or change in strength/sensation. ENDOCRINE: No increased thirst. No abnormal weight change. HEMATOLOGIC/LYMPHATIC: No anemia, easy bleeding, or history of blood clots. ALLERGIC/IMMUNOLOGIC: No hives or skin allergy. <Shima Crabtree - Last Filed: 06/21/17 23:47> *Physical Exam - Vital Signs Last Vital Signs Temp Pulse Resp BP Pulse Ox 98.2 F 82 16 110/80 100 06/21/17 22:14 06/21/17 22:14 06/21/17 22:14 06/21/17 22:14 06/21/17 22:14 <Leona Queen - Last Filed: 06/21/17 23:24> - Vital Signs Last Vital Signs Temp Pulse Resp BP Pulse Ox 98.2 F 82 16 110/80 100 06/21/17 22:14 06/21/17 22:14 06/21/17 22:14 06/21/17 22:14 06/21/17 22:14 - Physical Exam Comments: 06/21/17 23:46 GENERAL: Awake, alert, and fully oriented, in no acute distress HEAD: No signs of trauma EYES: PERRLA, EOMI, sclera anicteric, conjunctiva clear ENT: Auricles normal inspection, nares patent. Moist mucosa. Small superficial laceration to lower lip, no active bleeding. NECK: Normal ROM, supple, no JVD, or masses LUNGS: Breath sounds equal, clear to auscultation bilaterally. No wheezes, and no crackles HEART: Regular rate and rhythm, normal S1 and S2, no murmurs, rubs or gallops ABDOMEN: Soft, nontender, normoactive bowel sounds. No guarding, no rebound. No masses EXTREMITIES: Normal range of motion, no edema. No clubbing or cyanosis. No cords, erythema, or tenderness NEUROLOGICAL: Alert and oriented x 3. Moves all extremities. Face is symmetric. SKIN: Warm, Dry, normal turgor, no rashes or lesions noted. <Shima Crabtree - Last Filed: 06/21/17 23:47> ED Treatment Course - Medications Given in the ED: ED Medications Discontinued Medications Generic Name Dose Route Start Last Admin Trade Name Freq PRN Reason Stop Dose Admin Levetiracetam 1,000 mg 06/21/17 22:16 06/21/17 22:40 Keppra Injection - IVPB 06/21/17 22:17 1,000 mg ONCE ONE Administration Topiramate 25 mg 06/21/17 22:16 06/21/17 22:40 Topamax - PO 06/21/17 22:17 25 mg ONCE ONE Administration <Leona Queen - Last Filed: 06/21/17 23:24> - Medications Given in the ED: ED Medications Discontinued Medications Generic Name Dose Route Start Last Admin Trade Name Freq PRN Reason Stop Dose Admin Levetiracetam 1,000 mg 06/21/17 22:16 06/21/17 22:40 Keppra Injection - IVPB 06/21/17 22:17 1,000 mg ONCE ONE Administration Topiramate 25 mg 06/21/17 22:16 06/21/17 22:40 Topamax - PO 06/21/17 22:17 25 mg ONCE ONE Administration <Shima Crabtree - Last Filed: 06/21/17 23:47> Medical Decision Making - Medical Decision Making 06/21/17 23:13 31-year-old female brought in by ambulance from [facility] [place] after having a tonic-clonic seizure. He received a call from [facility] and spoke to the nurse practitioner on the second about this case. Patient's past medical history of seizures and takes Keppra and Topamax for them. She has not had her evening dose of these medication. Past medical history also includes hypertension, asthma, bipolar, schizophrenia , anxiety disorder. Social history- She has a history of drug abuse including heroin, cocaine, alcohol, Xanax 06/21/17 23:24 I spoke with the nurse at [facility] and she agreed the pt had NO head trauma since she had the seizure in her bed and does NOT require a CAT scan of her head. -pt has no focal neuro deficits she was loaded with keppra and will be discharged back to [facility] <Leona Queen - Last Filed: 06/21/17 23:24> *DC/Admit/Observation/Transfer <Leona Queen - Last Filed: 06/21/17 23:24> - Attestations Scribe Attestion: 06/21/17 23:46 Documentation prepared by Shima Crabtree, acting as medical records auditor for Leona Queen MD. <Shima Crabtree - Last Filed: 06/21/17 23:47> Diagnosis at time of Disposition: Seizure disorder, Psychiatric disorder - Discharge Dispostion Disposition: HOME Condition at time of disposition: Stable - Patient Instructions Printed Discharge Instructions: DI for Seizure Disorder -- Adult
== END 2017-06-22 00:27 | disposition home or self-care (01) ==
LOC: JER 22:08
PROC: 3E033GC Introduction of Other Therapeutic Substance into Peripheral Vein, Percutaneous Approach (ICD-10-PCS; principal; 2017-06-21)
DX: G40.909 Epilepsy, unspecified, not intractable, without status epilepticus (principal); I10 Essential (primary) hypertension; J45.909 Unspecified asthma, uncomplicated; F31.9 Bipolar disorder, unspecified; F20.9 Schizophrenia, unspecified; F41.9 Anxiety disorder, unspecified
CPT/HCPCS: 36415; 84703; 96374; 99281-25

== ENCOUNTER 2017-09-21 08:23 | Inpatient (IN) | payer OTHER ==
[2017-09-21 09:49] VITALS: BMI 25.4
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
[2017-09-21] MEDS ORDERED: IBUPROFEN 400 MG TABLET (FP) PO PRN (10:59)
[2017-09-21] MEDS ORDERED: LOPERAMIDE HCL 2 MG CAPSULE PO PRN (10:59)
[2017-09-21] MEDS ORDERED: MAGNESIUM CITRATE 300 ML BOTTLE PO PRN (10:59)
[2017-09-21] MEDS ORDERED: MAG HYDROX/AL HYDROX/SIMETH 30 ML UNIT-DOSE CUP PO PRN (10:59)
[2017-09-21] MEDS ORDERED: P-EPHED 60MG/TRIPROLIDI 2.5MG TABLET PO PRN (10:59)
[2017-09-21] MEDS ORDERED: MAGNESIUM HYDROX 2400MG/30ML ORAL SUSPENSION 30 ML CUP PO PRN (10:59)
[2017-09-21] MEDS ORDERED: ACETAMINOPHEN 325 MG TABLET (FP) PO PRN (10:59)
[2017-09-21] MEDS ORDERED: hydrOXYzine PAMOATE 50 MG CAPSULE (FP) PO PRN (10:59)
[2017-09-21] MEDS ORDERED: ALBUTEROL SO4 18 GM HFA INHALER IH PRN (11:02)
[2017-09-21] MEDS ORDERED: chlordiazePOXIDE HCL 25 MG CAPSULE PO ONE (11:30)
[2017-09-21] MEDS ORDERED: METHADONE HCL 10 MG TABLET (FOR DETOX USE ONLY) PO ONE ×2 (11:30→23:00)
--- NOTE | 2017-09-21 12:07 | CONSULT ---
[facility] Psychiatric Consult - Data Date of interview: 09/21/17 Admission source: [facility] Identifying data: This is 32 years old male, father of two, living alone, unemployd, on PA, with psychiatric hospitalization history, history of Bipolar disorder,. Patient reports abusing Alcohol and Heroin, Cannabis as well , reports withdrawal symptoms and seeking for detox. Substance Abuse History: Smoking Cessation. Smoking history: Never smoked. Have you smoked in the past 12 months: No. Aproximately how many cigarettes per day: 20. Hx Chewing Tobacco Use: No. Initiated information on smoking cessation: Yes. 'Breaking Loose' booklet given: 09/21/17. - Substance & Tx. History. Hx Alcohol Use: Yes. Hx Substance Use: Yes. Substance Use Type: Alcohol, Heroin, Marijuana. Hx Substance Use Treatment: Yes. - Substances Abused. Heroin. Route: Injection. Frequency: Daily. Amount used: 20-30 bags. Age of first use: 25. Date of Last Use: 09/21/17. Alcohol-vodka. Route: Oral. Frequency: Daily. Amount used: 1 liter. Age of first use: 17. Date of Last Use: 09/20/17. Marijuana. Route: Smoking. Frequency: 3-6 times per week. Amount used: $10. Age of first use: 13. Date of Last Use: Medical History: HepC_, Seizure history, Asthma Psychiatric History: Patient reports history of Bipolar disorder with most recent psychiatric admission at [facility] on 2017 for safety, reports history of suicidal attempts by OD,. reports having plans to jump from the roof , history of cutting his left forearm, 5-9 stitches applyed, reports no sucidal historty since 2016. Patient states currently on: Seroquel 50mg poqd, 300mg po qhs. Ambien 10-mg po qhs. Vistaril 100mg po prn q4 for agitation. Physical/Sexual Abuse/Trauma History: Denies Additional Comment: Seroquel 50mg poqd, 300mg po qhs. Ambien 10-mg po qhs. Vistaril 100mg po prn q4 for agitation. Mental Status Exam - Mental Status Exam Alert and Oriented to: Place, Person Cognitive Function: Fair
[2017-09-21] MEDS: QUEtiapine FUMARATE 50 MG TABLET PO SCH (12:50)
[2017-09-21] MEDS: guaiFENesin/D-METHORPHAN HB 10 ML UNIT-DOSE CUPS PO PRN ×2 (13:46→22:19)
[2017-09-21] MEDS: NICOTINE POLACRILEX 2 MG GUM BUC PRN ×3 (13:46→22:19)
[2017-09-21] MEDS: MENTHOL/PHENOL 1 EACH UD MM PRN ×3 (13:46→22:19)
[2017-09-21 15:21] LABS: HEMATOCRIT 36.2 % (32.4-45.2); MCH 26.8 pg (25.7-33.7); MCHC 33.2 g/dl (32.0-36.0); MEAN CELL VOLUME 80.7 fl (80-96); MEAN PLT VOLUME 7.7 fl (7.5-11.1); PLATELET COUNT 309 K/MM3 (134-434); RBC 4.48 M/mm3 (3.60-5.2); RDW 15.8 % (11.6-15.6); WHITE BLOOD COUNT 14.8 K/mm3 (4.0-10.0)
[2017-09-21] MEDS ORDERED: COLLOIDAL OATMEAL 1 BAR EACH TP PRN (15:21)
[2017-09-21 15:36] LABS: CHLORIDE 100 mmol/L (98-107); POTASSIUM 4.1 mmol/L (3.5-5.1); SODIUM 137 mmol/L (136-145)
[2017-09-21 15:53] LABS: ALBUMIN 3.9 g/dl (3.4-5.0); ALK PHOS 97 U/L (45-117); ANION GAP 10 (8-16); BILIRUBIN,TOTAL 0.4 mg/dL (0.2-1.0); BLOOD UREA NITROGEN 28 mg/dL (7-18); CALCIUM 8.6 mg/dL (8.5-10.1); CO2 27 mmol/L (21-32); CREATININE 1.2 mg/dL (0.55-1.02); GLUCOSE,RANDOM 71 mg/dL (74-106); SGPT/ALT 303 U/L (12-78); TOT PROT 7.4 g/dl (6.4-8.2)
[2017-09-21 15:54] LABS: SGOT/AST 681 U/L (15-37)
[2017-09-21 16:43] LABS: URINE APPEARANCE TURBID; URINE BILIRUBIN NEGATIVE (<2.0 mg/dL); URINE COLOR LTYELLOW; URINE GLUCOSE (UA) NEGATIVE (NEGATIVE); URINE KETONE NEGATIVE (NEGATIVE); URINE LEUK ESTERASE NEGATIVE (NEGATIVE); URINE NITRITE NEGATIVE (NEGATIVE); URINE PROTEIN NEGATIVE (NEGATIVE); URINE UROBILINOGEN NEGATIVE mg/dL (0.2-1.0)
[2017-09-21] MEDS: chlordiazePOXIDE HCL 25 MG CAPSULE PO SCH ×2 (17:31→22:14)
[2017-09-21] MEDS: hydrOXYzine PAMOATE 50 MG CAPSULE (FP) PO PRN (20:04)
[2017-09-21] MEDS ORDERED: MELATONIN 5 MG TABLETS PO PRN (22:00)
[2017-09-21] MEDS ORDERED: PATIENT'S OWN MEDICATION (NON-FORMULARY) (Levetiracetam [Keppra -] 750 MG) PO SCH (22:00)
[2017-09-21] MEDS: THIAMINE HCL 100 MG TABLET (FP) PO SCH (22:14)
[2017-09-21] MEDS: QUEtiapine FUMARATE 300 MG TABLET PO SCH (22:14)
[2017-09-21] MEDS: ZOLPIDEM TARTRATE 10 MG TABLET (PARK CARE ONLY) PO PRN (22:14)
[2017-09-21] MEDS: BUDESONIDE/FORMETEROL FUMARATE 160/4.5 mcg INHALER IH SCH (22:15)
[2017-09-22] MEDS: hydrOXYzine PAMOATE 50 MG CAPSULE (FP) PO PRN ×3 (01:29→19:53)
[2017-09-22] MEDS: NICOTINE POLACRILEX 2 MG GUM BUC PRN ×7 (01:29→22:04)
[2017-09-22] MEDS: chlordiazePOXIDE HCL 25 MG CAPSULE PO SCH ×4 (06:00→22:03)
[2017-09-22] MEDS: guaiFENesin/D-METHORPHAN HB 10 ML UNIT-DOSE CUPS PO PRN ×2 (06:04→15:45)
[2017-09-22] MEDS: MENTHOL/PHENOL 1 EACH UD MM PRN ×3 (06:04→22:08)
[2017-09-22] MEDS: chlordiazePOXIDE HCL 25 MG CAPSULE PO PRN ×2 (08:22→18:17)
[2017-09-22] MEDS ORDERED: METHADONE HCL 10 MG TABLET (FOR DETOX USE ONLY) PO SCH (10:00)
[2017-09-22] MEDS ORDERED: COLLOIDAL OATMEAL 1 BAR EACH TP PRN (10:20)
[2017-09-22] MEDS: QUEtiapine FUMARATE 50 MG TABLET PO SCH (10:47)
[2017-09-22] MEDS: PRENATAL VITAMINS W/ FOLIC ACID TABLET (FP) PO SCH (10:47)
[2017-09-22] MEDS: BUDESONIDE/FORMETEROL FUMARATE 160/4.5 mcg INHALER IH SCH ×2 (10:47→22:04)
[2017-09-22] MEDS: NICOTINE 21 MG/24 HOURS TOPICAL PATCH TD SCH (10:51)
--- NOTE | 2017-09-22 11:17 | PN ---
S CIWA - CIWA Score Nausea/Vomitin Muscle Tremors: 1-None Visible, but [place] Anxiety: 1-Mildly Anxious Agitation: 1-Slight > Activity Paroxysmal Sweats: 1-Minimal [place] Moist Orientation: 0-Oriented Tacttile Disturbances: 2-Mild Itch/Numbness/Burn Auditory Disturbances: 0-None Visual Disturbances: 0-None Headache: 0-None Present CIWA-Ar Total Score: 8 [facility] COWS - Scale Resting Pulse: 0= [place] 80 or Below Sweatin=Flushed/Facial Moisture Restless Observation: 1= Difficult to Sit Still Pupil Size: 0= Normal to Room Light Bone or Joint Aches: 1= Mild Discomfort Runny Nose/ Eye Tearin= None GI Upset > 30mins: 2= Nausea/Diarrhea Tremor Observation of Outstretched Hands: 1= Tremor [place], Not Seen Yawning Observation: 0= None Anxiety or Irritability: 1=Feels Anxious/Irritable Goose Flesh Skin: 0=Smooth Skin COWS Score: 8 S Progress Note (SOAP) Subjective: PATIENT ADMITTED FOR HEROIN/ETOH WITHDRAWAL SYMPTOMS. STATES SHE FEELS ANXIOUS, NAUSEOUS WITH MILD DIARRHEA, PRURITIS, CHILLS AND BODY ACHES WITH PERIPHERAL NEUROPATHY. Objective: 09/22/17 11:11 OBJ: GENERAL: ALERT AND ORIENTED X 3. ANXIOUS AND PACING IN HALLWAY SKIN: WARM AND MOIST CAR: S1S2 RESP: CTA BL GI: SOFT, NT, ND EXT: NO EDEMA Laboratory Tests 09/21/17 09/21/17 09/21/17 11:30 11:30 11:30 WBC 14.8 H D RBC 4.48 Hgb 12.0 Hct 36.2 MCV 80.7 MCH 26.8 MCHC 33.2 RDW 15.8 H Plt Count 309 MPV 7.7 Sodium 137 Potassium 4.1 Chloride 100 Carbon Dioxide 27 Anion Gap 10 BUN 28 H Creatinine 1.2 H Creat Clearance w eGFR 52.75 Random Glucose 71 L Calcium 8.6 Total Bilirubin 0.4 D AST 681 H ALT 303 H Alkaline Phosphatase 97 Total Protein 7.4 Albumin 3.9 Urine Color Urine Appearance Urine pH Ur Specific [place] Urine Protein Urine Glucose (UA) Urine Ketones Urine Blood Urine Nitrite Urine Bilirubin Urine Urobilinogen Ur Leukocyte Esterase RPR Titer HIV 1&2 Antibody Screen Negative HIV P24 Antigen Negative 09/21/17 09/21/17 11:30 14:06 WBC RBC Hgb Hct MCV MCH MCHC RDW Plt Count MPV Sodium Potassium Chloride Carbon Dioxide Anion Gap BUN Creatinine Creat Clearance w eGFR Random Glucose Calcium Total Bilirubin AST ALT Alkaline Phosphatase Total Protein Albumin Urine Color Ltyellow Urine Appearance Turbid Urine pH 5.0 Ur Specific [place] 1.016 Urine Protein Negative Urine Glucose (UA) Negative Urine Ketones Negative Urine Blood Negative Urine Nitrite Negative Urine Bilirubin Negative Urine Urobilinogen Negative Ur Leukocyte Esterase Negative RPR Titer Nonreactive HIV 1&2 Antibody Screen HIV P24 Antigen Vital Signs Temperature 98.1 F 09/22/17 09:51 Pulse Rate 74 09/22/17 09:51 Respiratory Rate 18 09/22/17 09:51 Blood Pressure 100/63 09/22/17 09:51 O2 Sat by Pulse Oximetry (%) Assessment: 09/22/17 11:13 ETOH WITHDRAWAL SYMPTOMS WITHDRAWAL SYMPTOMS Plan: CONTINUE DETOX PATIENT IN GABAPENTIN IN HISTORY WILL REORDER GABAPENTIN 400MG TID ADD FLEXERIL PRN ORAL FLUIDS ENCOURAGED HYDROCORTISONE OINTMENT ORDERED FOR PRURITIS CONTINUE TO MONITOR CLINICALLY
--- NOTE | 2017-09-22 12:01 | EKG ---
Test Reason : Blood Pressure : / mmHG Vent. Rate : 069 BPM Atrial Rate : 069 BPM P-R Int : 118 ms QRS Dur : 094 ms QT Int : 448 ms P-R-T Axes : 077 051 052 degrees QTc Int : 480 ms NORMAL SINUS RHYTHM POSSIBLE LEFT ATRIAL ENLARGEMENT NONSPECIFIC T WAVE ABNORMALITY PROLONGED QT ABNORMAL ECG WHEN COMPARED WITH ECG OF 14-JUN-2017 18:57, T WAVE INVERSION NOW EVIDENT IN ANTERIOR LEADS Confirmed by PAZ KING, MEREDITH ([id number]) on 09/22/2017 12:01:18 PM Referred By: Confirmed By:MEREDITH MULLEN MD
[2017-09-22] MEDS: CYCLOBENZAPRINE HCL 5 MG TABLET PO SCH ×2 (13:09→22:02)
[2017-09-22] MEDS: GABAPENTIN 400 MG CAPSULE (FP) PO SCH ×2 (13:09→22:02)
[2017-09-22] MEDS: QUEtiapine FUMARATE 300 MG TABLET PO SCH (22:02)
[2017-09-22] MEDS: HYDROCORTISONE 1% TOPICAL OINT 30 GM TUBE TP SCH (22:03)
[2017-09-22] MEDS: ZOLPIDEM TARTRATE 10 MG TABLET (PARK CARE ONLY) PO PRN (22:03)
[2017-09-22] MEDS: THIAMINE HCL 100 MG TABLET (FP) PO SCH (22:04)
[2017-09-23] MEDS: CYCLOBENZAPRINE HCL 5 MG TABLET PO SCH ×3 (05:53→22:33)
[2017-09-23] MEDS: GABAPENTIN 400 MG CAPSULE (FP) PO SCH ×3 (05:53→22:32)
[2017-09-23] MEDS: chlordiazePOXIDE HCL 25 MG CAPSULE PO SCH ×2 (05:53→10:24)
[2017-09-23] MEDS: hydrOXYzine PAMOATE 50 MG CAPSULE (FP) PO PRN ×3 (05:56→16:18)
[2017-09-23] MEDS: METHADONE HCL 5 MG TABLET (FOR DETOX USE ONLY) PO SCH (10:24)
[2017-09-23] MEDS: NICOTINE 21 MG/24 HOURS TOPICAL PATCH TD SCH (10:24)
[2017-09-23] MEDS: PRENATAL VITAMINS W/ FOLIC ACID TABLET (FP) PO SCH (10:24)
[2017-09-23] MEDS: QUEtiapine FUMARATE 50 MG TABLET PO SCH (10:24)
[2017-09-23] MEDS: HYDROCORTISONE 1% TOPICAL OINT 30 GM TUBE TP SCH ×2 (10:25→22:32)
[2017-09-23] MEDS: BUDESONIDE/FORMETEROL FUMARATE 160/4.5 mcg INHALER IH SCH ×2 (10:25→22:33)
[2017-09-23] MEDS: MENTHOL/PHENOL 1 EACH UD MM PRN ×2 (10:30→16:19)
[2017-09-23] MEDS: guaiFENesin/D-METHORPHAN HB 10 ML UNIT-DOSE CUPS PO PRN ×2 (10:30→16:18)
[2017-09-23] MEDS: NICOTINE POLACRILEX 2 MG GUM BUC PRN ×3 (10:32→20:58)
[2017-09-23] MEDS: chlordiazePOXIDE HCL 25 MG CAPSULE PO PRN (12:47)
--- NOTE | 2017-09-23 13:17 | PN ---
[facility] CIWA - CIWA Score Nausea/Vomitin-No Nausea/No Vomiting Muscle Tremors: None Anxiety: 0-No Anxiety, at Ease Agitation: 0-Normal Activity Paroxysmal Sweats: No Perspiration Orientation: 0-Oriented Tacttile Disturbances: 0-None Auditory Disturbances: 0-None Visual Disturbances: 0-None Headache: 0-None Present CIWA-Ar Total Score: 0 [facility] COWS - Scale Resting Pulse: 0= [place] 80 or Below Restless Observation: 0= Sits Still Pupil Size: 0= Normal to Room Light Bone or Joint Aches: 0= None Runny Nose/ Eye Tearin= None GI Upset > 30mins: 0= None Tremor Observation of Outstretched Hands: 0= None Yawning Observation: 0= None Anxiety or Irritability: 0= None Goose Flesh Skin: 0=Smooth Skin
--- NOTE | 2017-09-23 13:20 | PN ---
[facility] Progress Note (SOAP) Subjective: Pt was upset about her increased liver enzymes, states she was told she had HCV. Wants to get follow up at [place] [facility]. Wants to stop using illicit drugs. States she would like to get clonidine at night as that controls her nightmares Objective: 09/23/17 13:19 Vital Signs - 24 hr 09/22/17 09/22/17 09/23/17 18:06 22:36 00:30 Temperature 98.2 F 98.4 F Pulse Rate 86 103 H Respiratory 18 20 18 Rate Blood Pressure 120/64 125/74 09/23/17 09/23/17 09/23/17 06:00 10:00 13:30 Temperature 97.2 F L 98.0 F 98.4 F Pulse Rate 75 96 H 85 Respiratory 18 18 18 Rate Blood Pressure 102/69 106/67 112/70 09/21/17 11:30 09/21/17 11:30 CBC,CMP WBC 14.8 K/mm3 (4.0-10.0) H D 09/21/17 11:30 RBC 4.48 M/mm3 (3.60-5.2) 09/21/17 11:30 Hgb 12.0 GM/dL (10.7-15.3) 09/21/17 11:30 Hct 36.2 % (32.4-45.2) 09/21/17 11:30 MCV 80.7 fl (80-96) 09/21/17 11:30 MCH 26.8 pg (25.7-33.7) 09/21/17 11:30 MCHC 33.2 g/dl (32.0-36.0) 09/21/17 11:30 RDW 15.8 % (11.6-15.6) H 09/21/17 11:30 Plt Count 309 K/MM3 (134-434) 09/21/17 11:30 MPV 7.7 fl (7.5-11.1) 09/21/17 11:30 Sodium 137 mmol/L (136-145) 09/21/17 11:30 Potassium 4.1 mmol/L (3.5-5.1) 09/21/17 11:30 Chloride 100 mmol/L (98-107) 09/21/17 11:30 Carbon Dioxide 27 mmol/L (21-32) 09/21/17 11:30 Anion Gap 10 (8-16) 09/21/17 11:30 BUN 28 mg/dL (7-18) H 09/21/17 11:30 Creatinine 1.2 mg/dL (0.55-1.02) H 09/21/17 11:30 Creat Clearance w eGFR 52.75 (>60) 09/21/17 11:30 Random Glucose 71 mg/dL (74-106) L 09/21/17 11:30 Calcium 8.6 mg/dL (8.5-10.1) 09/21/17 11:30 Total Bilirubin 0.4 mg/dL (0.2-1.0) D 09/21/17 11:30 AST 681 U/L (15-37) H 09/21/17 11:30 ALT 303 U/L (12-78) H 09/21/17 11:30 Alkaline Phosphatase 97 U/L (45-117) 09/21/17 11:30 Total Protein 7.4 g/dl (6.4-8.2) 09/21/17 11:30 Albumin 3.9 g/dl (3.4-5.0) 09/21/17 11:30 09/23/17 13:22 lungs clear heart RRR abd soft/NT 09/23/17 13:36 Assessment: 09/23/17 13:23 Pt doing well on detox protocols Labs showed mild renal insufficiency, and increased liver enzymes Nightmares at night Plan: continue detox protocls start clonidine for nightmares Pt to f/u with PCP for abnormal liver enzymes and ? HCV
[2017-09-23] MEDS: chlordiazePOXIDE 5 MG CAPSULE PO SCH ×2 (17:47→22:33)
[2017-09-23] MEDS: ALBUTEROL SO4 2.5/IPRATROPIUM 0.5 INH SOL 3 ML VIAL.NEB. NEB PRN (21:45)
[2017-09-23] MEDS: ZOLPIDEM TARTRATE 10 MG TABLET (PARK CARE ONLY) PO PRN (22:32)
[2017-09-23] MEDS: cloNIDine HCL 0.1 MG TABLET PO SCH (22:32)
[2017-09-23] MEDS: THIAMINE HCL 100 MG TABLET (FP) PO SCH (22:33)
[2017-09-23] MEDS: QUEtiapine FUMARATE 300 MG TABLET PO SCH (23:27)
[2017-09-24] MEDS: chlordiazePOXIDE HCL 25 MG CAPSULE PO PRN (02:02)
[2017-09-24] MEDS: MENTHOL/PHENOL 1 EACH UD MM PRN ×4 (02:03→20:14)
[2017-09-24] MEDS: CYCLOBENZAPRINE HCL 5 MG TABLET PO SCH ×3 (05:25→21:33)
[2017-09-24] MEDS: GABAPENTIN 400 MG CAPSULE (FP) PO SCH ×3 (05:25→21:34)
[2017-09-24] MEDS: chlordiazePOXIDE 5 MG CAPSULE PO SCH ×2 (05:26→10:32)
[2017-09-24] MEDS: ALBUTEROL SO4 2.5/IPRATROPIUM 0.5 INH SOL 3 ML VIAL.NEB. NEB PRN ×2 (06:29→20:13)
[2017-09-24 10:32] LABS: BASO % 1.2 % (0-2.0); EOS % 3.8 % (0-4.5); LYMPH % 41.3 % (8-40); MCH 27.5 pg (25.7-33.7); MCHC 33.4 g/dl (32.0-36.0); MEAN CELL VOLUME 82.2 fl (80-96); MEAN PLT VOLUME 7.8 fl (7.5-11.1); MONO % 12.7 % (3.8-10.2); PLATELET COUNT 314 K/MM3 (134-434); RBC 4.38 M/mm3 (3.60-5.2); RDW 16.3 % (11.6-15.6); WHITE BLOOD COUNT 8.2 K/mm3 (4.0-10.0)
[2017-09-24] MEDS: QUEtiapine FUMARATE 50 MG TABLET PO SCH (10:32)
[2017-09-24] MEDS: HYDROCORTISONE 1% TOPICAL OINT 30 GM TUBE TP SCH ×2 (10:33→21:37)
[2017-09-24] MEDS: METHADONE HCL 5 MG TABLET (FOR DETOX USE ONLY) PO SCH (10:33)
[2017-09-24] MEDS: PRENATAL VITAMINS W/ FOLIC ACID TABLET (FP) PO SCH (10:33)
[2017-09-24] MEDS: BUDESONIDE/FORMETEROL FUMARATE 160/4.5 mcg INHALER IH SCH ×2 (10:33→21:36)
[2017-09-24] MEDS: NICOTINE 21 MG/24 HOURS TOPICAL PATCH TD SCH (10:33)
--- NOTE | 2017-09-24 10:36 | PN ---
[facility] Progress Note (SOAP) Subjective: Increased anxiety, irritability, and epigastric/chest pain with left arm numbness Objective: 09/24/17 10:32 Vital Signs 09/24/17 09/24/17 06:19 10:30 Temperature 96.6 F L 97.5 F L Pulse Rate 83 95 H Respiratory 20 22 Rate Blood Pressure 119/66 116/65 Laboratory Last Values WBC 14.8 K/mm3 (4.0-10.0) H D 09/21/17 11:30 RBC 4.48 M/mm3 (3.60-5.2) 09/21/17 11:30 Hgb 12.0 GM/dL (10.7-15.3) 09/21/17 11:30 Hct 36.2 % (32.4-45.2) 09/21/17 11:30 MCV 80.7 fl (80-96) 09/21/17 11:30 MCH 26.8 pg (25.7-33.7) 09/21/17 11:30 MCHC 33.2 g/dl (32.0-36.0) 09/21/17 11:30 RDW 15.8 % (11.6-15.6) H 09/21/17 11:30 Plt Count 309 K/MM3 (134-434) 09/21/17 11:30 MPV 7.7 fl (7.5-11.1) 09/21/17 11:30 Sodium 137 mmol/L (136-145) 09/21/17 11:30 Potassium 4.1 mmol/L (3.5-5.1) 09/21/17 11:30 Chloride 100 mmol/L (98-107) 09/21/17 11:30 Carbon Dioxide 27 mmol/L (21-32) 09/21/17 11:30 Anion Gap 10 (8-16) 09/21/17 11:30 BUN 28 mg/dL (7-18) H 09/21/17 11:30 Creatinine 1.2 mg/dL (0.55-1.02) H 09/21/17 11:30 Creat Clearance w eGFR 52.75 (>60) 09/21/17 11:30 Random Glucose 71 mg/dL (74-106) L 09/21/17 11:30 Calcium 8.6 mg/dL (8.5-10.1) 09/21/17 11:30 Total Bilirubin 0.4 mg/dL (0.2-1.0) D 09/21/17 11:30 AST 681 U/L (15-37) H 09/21/17 11:30 ALT 303 U/L (12-78) H 09/21/17 11:30 Alkaline Phosphatase 97 U/L (45-117) 09/21/17 11:30 Total Protein 7.4 g/dl (6.4-8.2) 09/21/17 11:30 Albumin 3.9 g/dl (3.4-5.0) 09/21/17 11:30 Urine Color Ltyellow 09/21/17 14:06 Urine Appearance Turbid 09/21/17 14:06 Urine pH 5.0 (5.0-8.0) 09/21/17 14:06 Ur Specific [place] 1.016 (1.001-1.035) 09/21/17 14:06 Urine Protein Negative (NEGATIVE) 09/21/17 14:06 Urine Glucose (UA) Negative (NEGATIVE) 09/21/17 14:06 Urine Ketones Negative (NEGATIVE) 09/21/17 14:06 Urine Blood Negative (NEGATIVE) 09/21/17 14:06 Urine Nitrite Negative (NEGATIVE) 09/21/17 14:06 Urine Bilirubin Negative (<2.0 mg/dL) 09/21/17 14:06 Urine Urobilinogen Negative mg/dL (0.2-1.0) 09/21/17 14:06 Ur Leukocyte Esterase Negative (NEGATIVE) 09/21/17 14:06 RPR Titer Nonreactive (NONREACTIVE) 09/21/17 11:30 HIV 1&2 Antibody Screen Negative 09/21/17 11:30 HIV P24 Antigen Negative 09/21/17 11:30 Labs noted Seen for chest pain with left arm numbness, symptoms resolved at time of visit. Patient reports symptoms started 3 weeks ago, comes and goes without warning. Lungs clear with no respiratory distress. Patient very anxious about Hep C, asking several times for treatment. Assessment: 09/24/17 10:34 Withdrawal sx Anxiety disorder Plan: Withdrawal-Continue detox Chest pain-EKG with no changes compared to previous report, patient up and about in the hallway,continue to monitor.
[2017-09-24] MEDS: NICOTINE POLACRILEX 2 MG GUM BUC PRN ×4 (10:37→20:12)
[2017-09-24 10:43] LABS: INR 0.96 (0.82-1.09); PROTHROMBIN TIME (PATIENT) 10.9 SEC (9.7-13.0)
[2017-09-24 10:51] LABS: CHLORIDE 98 mmol/L (98-107); POTASSIUM 4.5 mmol/L (3.5-5.1); SODIUM 137 mmol/L (136-145)
[2017-09-24 11:06] LABS: ALBUMIN 3.5 g/dl (3.4-5.0); ALK PHOS 84 U/L (45-117); ANION GAP 7 (8-16); BILIRUBIN,TOTAL 0.2 mg/dL (0.2-1.0); BLOOD UREA NITROGEN 16 mg/dL (7-18); CO2 32 mmol/L (21-32); CREATININE 0.6 mg/dL (0.55-1.02); GLUCOSE,RANDOM 93 mg/dL (74-106); SGOT/AST 58 U/L (15-37); SGPT/ALT 136 U/L (12-78)
[2017-09-24] MEDS: hydrOXYzine PAMOATE 50 MG CAPSULE (FP) PO PRN ×2 (13:19→18:02)
[2017-09-24] MEDS: chlordiazePOXIDE HCL 10 MG CAPSULE PO SCH ×2 (18:02→23:21)
[2017-09-24] MEDS: cloNIDine HCL 0.1 MG TABLET PO SCH (21:33)
[2017-09-24] MEDS: ZOLPIDEM TARTRATE 10 MG TABLET (PARK CARE ONLY) PO PRN (21:34)
[2017-09-24] MEDS: QUEtiapine FUMARATE 300 MG TABLET PO SCH (21:34)
[2017-09-24] MEDS: THIAMINE HCL 100 MG TABLET (FP) PO SCH (21:37)
[2017-09-25] MEDS: chlordiazePOXIDE HCL 10 MG CAPSULE PO SCH ×2 (07:05→10:28)
[2017-09-25] MEDS: GABAPENTIN 400 MG CAPSULE (FP) PO SCH ×2 (07:05→13:11)
[2017-09-25] MEDS: CYCLOBENZAPRINE HCL 5 MG TABLET PO SCH ×2 (07:06→14:40)
[2017-09-25] MEDS ORDERED: METHADONE HCL 10 MG TABLET (FOR DETOX USE ONLY) PO SCH (10:00)
[2017-09-25] MEDS: HYDROCORTISONE 1% TOPICAL OINT 30 GM TUBE TP SCH (10:00)
[2017-09-25] MEDS: hydrOXYzine PAMOATE 50 MG CAPSULE (FP) PO PRN ×2 (10:27→14:41)
[2017-09-25] MEDS: QUEtiapine FUMARATE 50 MG TABLET PO SCH (10:28)
[2017-09-25] MEDS: BUDESONIDE/FORMETEROL FUMARATE 160/4.5 mcg INHALER IH SCH (10:28)
[2017-09-25] MEDS: NICOTINE 21 MG/24 HOURS TOPICAL PATCH TD SCH (10:28)
[2017-09-25] MEDS: PRENATAL VITAMINS W/ FOLIC ACID TABLET (FP) PO SCH (10:28)
[2017-09-25] MEDS: MENTHOL/PHENOL 1 EACH UD MM PRN ×2 (10:31→14:43)
[2017-09-25] MEDS: NICOTINE POLACRILEX 2 MG GUM BUC PRN ×2 (10:31→14:43)
[2017-09-25] MEDS: ALBUTEROL SO4 2.5/IPRATROPIUM 0.5 INH SOL 3 ML VIAL.NEB. NEB PRN (12:58)
[2017-09-25] MEDS ORDERED: cloNIDine HCL 0.1 MG TABLET PO ONE (14:41)
[2017-09-25] MEDS ORDERED: LACTULOSE 20 GM/30 ML UDC (FOR ORAL USE ONLY) PO PRN (15:34)
--- NOTE | 2017-09-25 15:42 | PN ---
[facility] Progress Note (SOAP) Subjective: stated feeling better from alcohol and opiate withdrawal sx anxiety restlessness irritable wants ativan "I get them from the doctor prescription" patient wants to begin hepatitis c treatment today Objective: 09/25/17 15:40 Vital Signs Temperature 97.5 F L 09/25/17 13:11 Pulse Rate 102 H 09/25/17 13:11 Respiratory Rate 18 09/25/17 13:11 Blood Pressure 113/75 09/25/17 13:11 O2 Sat by Pulse Oximetry (%) Laboratory Last Values WBC 8.2 K/mm3 (4.0-10.0) 09/24/17 08:00 RBC 4.38 M/mm3 (3.60-5.2) 09/24/17 08:00 Hgb 12.0 GM/dL (10.7-15.3) 09/24/17 08:00 Hct 36.0 % (32.4-45.2) 09/24/17 08:00 MCV 82.2 fl (80-96) 09/24/17 08:00 MCH 27.5 pg (25.7-33.7) 09/24/17 08:00 MCHC 33.4 g/dl (32.0-36.0) 09/24/17 08:00 RDW 16.3 % (11.6-15.6) H 09/24/17 08:00 Plt Count 314 K/MM3 (134-434) 09/24/17 08:00 MPV 7.8 fl (7.5-11.1) 09/24/17 08:00 Absolute Neuts (auto) 3.4 # 09/24/17 08:00 Neutrophils % 41.0 % (42.8-82.8) L D 09/24/17 08:00 Lymphocytes % 41.3 % (8-40) H D 09/24/17 08:00 Monocytes % 12.7 % (3.8-10.2) H 09/24/17 08:00 Eosinophils % 3.8 % (0-4.5) D 09/24/17 08:00 Basophils % 1.2 % (0-2.0) 09/24/17 08:00 Nucleated RBC % 0 % (0-0) 09/24/17 08:00 PT with INR 10.90 SEC (9.7-13.0) 09/24/17 08:30 INR 0.96 (0.82-1.09) 09/24/17 08:30 Sodium 137 mmol/L (136-145) 09/24/17 08:00 Potassium 4.5 mmol/L (3.5-5.1) 09/24/17 08:00 Chloride 98 mmol/L (98-107) 09/24/17 08:00 Carbon Dioxide 32 mmol/L (21-32) 09/24/17 08:00 Anion Gap 7 (8-16) L 09/24/17 08:00 BUN 16 mg/dL (7-18) 09/24/17 08:00 Creatinine 0.6 mg/dL (0.55-1.02) 09/24/17 08:00 Creat Clearance w eGFR > 60 (>60) 09/24/17 08:00 Random Glucose 93 mg/dL (74-106) 09/24/17 08:00 Calcium 9.0 mg/dL (8.5-10.1) 09/24/17 08:00 Total Bilirubin 0.2 mg/dL (0.2-1.0) 09/24/17 08:00 AST 58 U/L (15-37) H 09/24/17 08:00 ALT 136 U/L (12-78) H 09/24/17 08:00 Alkaline Phosphatase 84 U/L (45-117) D 09/24/17 08:00 Ammonia 58.8 umol/L (11-32) H 09/24/17 08:00 Total Protein 7.0 g/dl (6.4-8.2) 09/24/17 08:00 Albumin 3.5 g/dl (3.4-5.0) 09/24/17 08:00 Urine Color Ltyellow 09/21/17 14:06 Urine Appearance Turbid 09/21/17 14:06 Urine pH 5.0 (5.0-8.0) 09/21/17 14:06 Ur Specific [place] 1.016 (1.001-1.035) 09/21/17 14:06 Urine Protein Negative (NEGATIVE) 09/21/17 14:06 Urine Glucose (UA) Negative (NEGATIVE) 09/21/17 14:06 Urine Ketones Negative (NEGATIVE) 09/21/17 14:06 Urine Blood Negative (NEGATIVE) 09/21/17 14:06 Urine Nitrite Negative (NEGATIVE) 09/21/17 14:06 Urine Bilirubin Negative (<2.0 mg/dL) 09/21/17 14:06 Urine Urobilinogen Negative mg/dL (0.2-1.0) 09/21/17 14:06 Ur Leukocyte Esterase Negative (NEGATIVE) 09/21/17 14:06 RPR Titer Nonreactive (NONREACTIVE) 09/21/17 11:30 HIV 1&2 Antibody Screen Negative 09/21/17 11:30 HIV P24 Antigen Negative 09/21/17 11:30 lab noted elevated ammonia begin lactulose Assessment: 09/25/17 15:41 anxiety 09/25/17 15:43 hepatitis c Plan: psychiatrist referral clonidine 0.1 mg x 1 recommend the patient follow up with primary care provider for the purpose of hepatitis c treatment
[2017-09-26] MEDS ORDERED: METHADONE HCL 5 MG TABLET (FOR DETOX USE ONLY) PO SCH (06:00)
[2017-09-26] MEDS: CYCLOBENZAPRINE HCL 5 MG TABLET PO SCH ×2 (06:12→08:38)
[2017-09-26] MEDS: GABAPENTIN 400 MG CAPSULE (FP) PO SCH ×2 (06:12→08:39)
[2017-09-26] MEDS: guaiFENesin/D-METHORPHAN HB 10 ML UNIT-DOSE CUPS PO PRN (06:15)
[2017-09-26] MEDS: NICOTINE POLACRILEX 2 MG GUM BUC PRN (06:15)
[2017-09-26 08:11] VITALS: BP 108/71; PULSE 95; TEMP 97.5
[2017-09-26] MEDS: cloNIDine HCL 0.1 MG TABLET PO SCH (08:38)
[2017-09-26] MEDS: BUDESONIDE/FORMETEROL FUMARATE 160/4.5 mcg INHALER IH SCH (08:39)
[2017-09-26] MEDS: HYDROCORTISONE 1% TOPICAL OINT 30 GM TUBE TP SCH (08:39)
[2017-09-26] MEDS: QUEtiapine FUMARATE 300 MG TABLET PO SCH (08:39)
[2017-09-26] MEDS: THIAMINE HCL 100 MG TABLET (FP) PO SCH (08:39)
--- NOTE | 2017-09-26 08:57 | PN ---
S Progress Note (SOAP) Subjective: ALERT,NO COMPLAINT Objective: 09/26/17 08:56 Vital Signs Temperature 97.5 F L 09/26/17 08:10 Pulse Rate 95 H 09/26/17 08:10 Respiratory Rate 20 09/26/17 08:10 Blood Pressure 108/71 09/26/17 08:10 O2 Sat by Pulse Oximetry (%) Assessment: 09/26/17 08:56 DETOX COMPLETED,NO WITHDRAWAL SYMPTOM Plan: DISCHARGE TODAY,FOLLOW UP WITH AFTER CARE PROGRAM ARRANGEMENT AND FAMILY DOCTOR
--- NOTE | 2017-09-26 09:05 | DS ---
[facility] Detox Discharge Summary Admission Date: 09/21/17 Discharge Date: 09/26/17 - History Present History: Alcohol Dependence, Cannabis Dependence, Opioid Dependence Additional Comments: FOLLOW UP WITH AFTER CARE PROGRAM ARRANGEMENT - Physical Exam Results Vital Signs: Vital Signs Temperature 97.5 F L 09/26/17 08:10 Pulse Rate 95 H 09/26/17 08:10 Respiratory Rate 20 09/26/17 08:10 Blood Pressure 108/71 09/26/17 08:10 O2 Sat by Pulse Oximetry (%) Pertinent Admission Physical Exam Findings: WITHDRAWAL SIGNS AND SYMPTOM Vital Signs Temperature 97.5 F L 09/26/17 08:10 Pulse Rate 95 H 09/26/17 08:10 Respiratory Rate 20 09/26/17 08:10 Blood Pressure 108/71 09/26/17 08:10 O2 Sat by Pulse Oximetry (%) Laboratory Last Values WBC 8.2 K/mm3 (4.0-10.0) 09/24/17 08:00 RBC 4.38 M/mm3 (3.60-5.2) 09/24/17 08:00 Hgb 12.0 GM/dL (10.7-15.3) 09/24/17 08:00 Hct 36.0 % (32.4-45.2) 09/24/17 08:00 MCV 82.2 fl (80-96) 09/24/17 08:00 MCH 27.5 pg (25.7-33.7) 09/24/17 08:00 MCHC 33.4 g/dl (32.0-36.0) 09/24/17 08:00 RDW 16.3 % (11.6-15.6) H 09/24/17 08:00 Plt Count 314 K/MM3 (134-434) 09/24/17 08:00 MPV 7.8 fl (7.5-11.1) 09/24/17 08:00 Absolute Neuts (auto) 3.4 # 09/24/17 08:00 Neutrophils % 41.0 % (42.8-82.8) L D 09/24/17 08:00 Lymphocytes % 41.3 % (8-40) H D 09/24/17 08:00 Monocytes % 12.7 % (3.8-10.2) H 09/24/17 08:00 Eosinophils % 3.8 % (0-4.5) D 09/24/17 08:00 Basophils % 1.2 % (0-2.0) 09/24/17 08:00 Nucleated RBC % 0 % (0-0) 09/24/17 08:00 PT with INR 10.90 SEC (9.7-13.0) 09/24/17 08:30 INR 0.96 (0.82-1.09) 09/24/17 08:30 Sodium 137 mmol/L (136-145) 09/24/17 08:00 Potassium 4.5 mmol/L (3.5-5.1) 09/24/17 08:00 Chloride 98 mmol/L (98-107) 09/24/17 08:00 Carbon Dioxide 32 mmol/L (21-32) 09/24/17 08:00 Anion Gap 7 (8-16) L 09/24/17 08:00 BUN 16 mg/dL (7-18) 09/24/17 08:00 Creatinine 0.6 mg/dL (0.55-1.02) 09/24/17 08:00 Creat Clearance w eGFR > 60 (>60) 09/24/17 08:00 Random Glucose 93 mg/dL (74-106) 09/24/17 08:00 Calcium 9.0 mg/dL (8.5-10.1) 09/24/17 08:00 Total Bilirubin 0.2 mg/dL (0.2-1.0) 09/24/17 08:00 AST 58 U/L (15-37) H 09/24/17 08:00 ALT 136 U/L (12-78) H 09/24/17 08:00 Alkaline Phosphatase 84 U/L (45-117) D 09/24/17 08:00 Ammonia 58.8 umol/L (11-32) H 09/24/17 08:00 Total Protein 7.0 g/dl (6.4-8.2) 09/24/17 08:00 Albumin 3.5 g/dl (3.4-5.0) 09/24/17 08:00 Urine Color Ltyellow 09/21/17 14:06 Urine Appearance Turbid 09/21/17 14:06 Urine pH 5.0 (5.0-8.0) 09/21/17 14:06 Ur Specific [place] 1.016 (1.001-1.035) 09/21/17 14:06 Urine Protein Negative (NEGATIVE) 09/21/17 14:06 Urine Glucose (UA) Negative (NEGATIVE) 09/21/17 14:06 Urine Ketones Negative (NEGATIVE) 09/21/17 14:06 Urine Blood Negative (NEGATIVE) 09/21/17 14:06 Urine Nitrite Negative (NEGATIVE) 09/21/17 14:06 Urine Bilirubin Negative (<2.0 mg/dL) 09/21/17 14:06 Urine Urobilinogen Negative mg/dL (0.2-1.0) 09/21/17 14:06 Ur Leukocyte Esterase Negative (NEGATIVE) 09/21/17 14:06 RPR Titer Nonreactive (NONREACTIVE) 09/21/17 11:30 HIV 1&2 Antibody Screen Negative 09/21/17 11:30 HIV P24 Antigen Negative 09/21/17 11:30 - Treatment Hospital Course: Detox Protocol Followed, Detoxed Safely, Responded well, Discharged Condition Good Patient has Accepted a Rehab Referral to: DECLINED - Medication Discharge Medications: Ambulatory Orders Zolpidem Tartrate [Ambien] 10 mg PO HS 12/10/14 levETIRAcetam [Keppra -] 750 mg PO BID 12/10/14 Quetiapine Fumarate [Seroquel -] 50 mg PO DAILY #30 tablet 06/15/17 hydrOXYzine PAMOATE [Vistaril -] 50 mg PO Q4H #120 capsule 06/15/17 Chlorpromazine [Thorazine -] 25 mg PO TID PRN #90 tablet 06/27/17 Topiramate [Topamax -] 25 mg PO BID #60 tablet 06/27/17 Benztropine Mesylate [Cogentin -] 0.5 mg PO TID 09/21/17 Clonidine HCl [Catapres] 0.1 mg PO BID 09/21/17 Quetiapine Fumarate [Seroquel -] 50 mg PO DAILY #30 tablet 09/21/17 Quetiapine Fumarate [Seroquel -] 300 mg PO HS #30 tablet 09/21/17 hydrOXYzine PAMOATE [Vistaril -] 100 mg PO Q4H PRN #90 capsule 09/21/17 Albuterol Sulfate Inhaler - [Ventolin HFA Inhaler -] 2 inh PO Q4H PRN #1 inhaler 09/25/17 Albuterol Sulfate Inhaler - [Ventolin HFA Inhaler -] 2 inh PO Q4H PRN #1 inhaler 09/25/17 Budesonide/Formeterol Fumarate [SYMBICORT 160/4.5mcg -] 1 inh PO BID #1 inhaler 09/25/17 Gabapentin [Neurontin -] 400 mg PO TID #90 capsule 09/25/17 Hydrocortisone 1% Ointment [Hytone 1% Ointment -] 1 applic TP BID #1 tube Lactulose (Oral Use) [Cephulac -] 20 gm PO TID PRN #90 udc 09/25/17 cloNIDine HCL [Catapres -] 0.1 mg PO HS #30 tablet 09/25/17 levETIRAcetam [Keppra -] 750 mg PO BID #60 tablet 09/25/17 - Diagnosis (1) Opioid dependence with withdrawal Current Visit: Yes Status: Acute (2) Alcohol dependence with uncomplicated withdrawal Current Visit: Yes Status: Acute (3) Asthma Current Visit: Yes Status: Acute Qualifiers: Asthma severity: moderate Asthma persistence: unspecified Asthma complication type: unspecified Qualified Code(s): J45.909 - Unspecified asthma , uncomplicated (4) IV drug user Current Visit: Yes Status: Acute (5) Sedative, hypnotic or anxiolytic dependence with withdrawal, unspecified Current Visit: Yes Status: Acute (6) Bipolar disorder Current Visit: Yes Status: Chronic Qualifiers: Current episode severity: unspecified (7) Cannabis dependence Current Visit: Yes Status: Chronic (8) Eczema Current Visit: No Status: Chronic Qualifiers: Eczema type: unspecified Qualified Code(s): L30.9 - Dermatitis, unspecified (9) Hypertension Current Visit: No Status: Chronic Qualifiers: Hypertension type: essential hypertension Qualified Code(s): I10 - Essential (primary) hypertension (10) PTSD (post-traumatic stress disorder) Current Visit: No Status: Chronic (11) Increased ammonia level Current Visit: Yes Status: Acute - AMA Did Patient Leave Against Medical Advice: No
--- NOTE | 2017-09-26 22:13 | EKG ---
Test Reason : Blood Pressure : / mmHG Vent. Rate : 074 BPM Atrial Rate : 074 BPM P-R Int : 148 ms QRS Dur : 084 ms QT Int : 400 ms P-R-T Axes : 043 063 025 degrees QTc Int : 444 ms NORMAL SINUS RHYTHM NORMAL ECG WHEN COMPARED WITH ECG OF 21-SEP-2017 12:36, T WAVE VARIATION Confirmed by ZULMA ECHEVERRIA MD ([id number]) on 09/26/2017 10:13:30 PM Referred By: Confirmed By:ZULMA ECHEVERRIA MD
== END 2017-09-26 09:25 | disposition home or self-care (01) | DRG 773 ==
LOC: YASAS 08:23 → Y6N 11:22
PROVIDERS: ADMIT Family Medicine Addiction Medicine; ATTEND Family Medicine Addiction Medicine
PROC: HZ2ZZZZ Detoxification Services for Substance Abuse Treatment (ICD-10-PCS; principal; 2017-09-21)
DX: F11.23 Opioid dependence with withdrawal (principal); F13.230 Sedative, hypnotic or anxiolytic dependence with withdrawal, uncomplicated; F10.230 Alcohol dependence with withdrawal, uncomplicated; F12.20 Cannabis dependence, uncomplicated; F31.9 Bipolar disorder, unspecified; F43.10 Post-traumatic stress disorder, unspecified; G40.909 Epilepsy, unspecified, not intractable, without status epilepticus; I10 Essential (primary) hypertension; J45.909 Unspecified asthma, uncomplicated; L30.9 Dermatitis, unspecified; B18.2 Chronic viral hepatitis C; R79.89 Other specified abnormal findings of blood chemistry; Z88.8 Allergy status to other drugs, medicaments and biological substances; Z91.018 Allergy to other foods; Z91.5 Personal history of self-harm
CPT/HCPCS: 36415; 80053; 81003; 82140; 85025; 85027; 85610; 86593; 87389; 93005; 93010; 94640; J0735; J7620

== ENCOUNTER 2018-01-17 09:01 | Inpatient (IN) | payer OTHER ==
--- NOTE | 2018-01-17 09:15 | HP ---
COWS - Scale Resting Pulse: 0= MD 80 or Below Sweatin= Chills/Flushing Restless Observation: 3= Extraneous Movement Pupil Size: 1= Pupils >than Normal Bone or Joint Aches: 2= Severe Diffuse Aches Runny Nose/ Eye Tearin= Runny Nose/Eyes GI Upset > 30mins: 2= Nausea/Diarrhea Tremor Observation: 2= Slight Tremor Visible Yawning Observation: 1= 1-2x During Session Anxiety or Irritability: 1=Feels Anxious/Irritable Goose Flesh Skin: 0=Smooth Skin COWS Score: 15 CIWA Score - CIWA Score Nausea/Vomitin Muscle Tremors: 2 Anxiety: 2 Agitation: 2 Paroxysmal Sweats: 1-Minimal Palms Moist Orientation: 0-Oriented Tacttile Disturbances: 1-Very Mild Itch/Numbness Auditory Disturbances: 1-Very Mild Visual Disturbances: 1-Very Mild Sensitivity Headache: 2-Mild CIWA-Ar Total Score: 14 Admission ROS BHS - HPI Chief Complaint: i need help to stop using heroin,alcohol,marijuana Allergies/Adverse Reactions: Allergies Allergy/AdvReac Type Severity Reaction Status Date / Time Fish Containing Products Allergy Severe Rash Verified 01/17/18 15:39 lamotrigine [From Lamictal] Allergy Severe Rash Verified 01/17/18 15:39 History of Present Illness: this 32 years old male with heroin and alcohol and marijuana dependence,seeking detox,patient is on suboxone maintenance ,patient has a letter from her provider that she will not be provided with suboxone prescription any more seizure disorder last 3 days ago htn,asthma, weight loss bipolar disorder,anxiety depression multiple admissions to detox but keep relapsing nicotine dependence longest period of sobriety 5 years Exam Limitations: No Limitations - Ebola screening Have you traveled outside of the country in the last 21 days: No (N) Have you had contact with anyone from an Ebola affected area: No Do you have a fever: No - Review of Systems Constitutional: Chills, Loss of Appetite, Malaise, Night Sweats, Changes in sleep, Weakness, Unintentional Wgt. Loss EENT: reports: Hearing Loss, Nose Congestion Respiratory: reports: No Symptoms reported (history of asthma) Cardiac: reports: No Symptoms Reported GI: reports: Diarrhea, Nausea, Abdominal cramping : reports: No Symptoms Reported Musculoskeletal: reports: Back Pain, Muscle Pain Integumentary: reports: Dryness Neuro: reports: Headache, Tremors Endocrine: reports: No Symptoms Reported Hematology: reports: No Symptoms Reported Psychiatric: reports: No Sypmtoms Reported, Judgement Intact, Mood/Affect Appropiate, Orientated x3, Anxious, Depressed Patient History - Patient Medical History Hx Anemia: No Hx Asthma: Yes Hx Chronic Obstructive Pulmonary Disease (COPD): No Hx Cancer: No Hx Cardiac Disorders: No Hx Congestive Heart Failure: No Hx Hypertension: Yes Hx Hypercholesterolemia: No Hx Pacemaker: No HX Cerebrovascular Accident: No Hx Seizures: Yes (r/t head trauma-last episode 2 DAYS ago) Hx Dementia: No Hx Diabetes: No Hx Gastrointestinal Disorders: No Hx Liver Disease: No Hx Genitourinary Disorders: No Hx Sexually Transmitted Disorders: No Hx Renal Disease (ESRD): No Hx Thyroid Disease: No Hx Human Immunodeficiency Virus (HIV): No Hx Hepatitis C: No Hx Depression: Yes Hx Suicide Attempt: Yes (pill overdose in 2016) Hx Bipolar Disorder: Yes Hx Schizophrenia: No Other Medical History: no suicidal,no homicidal - Patient Surgical History Past Surgical History: Yes Hx Neurologic Surgery: No Hx Cataract Extraction: No Hx Cardiac Surgery: No Hx Lung Surgery: No Hx Breast Surgery: No Hx Breast Biopsy: No Hx Abdominal Surgery: No Hx Appendectomy: No Hx Cholecystectomy: No Hx Genitourinary Surgery: No Hx Section: Yes (x2 last 2012) Hx Orthopedic Surgery: No Anesthesia Reaction: No - PPD History Previous Implant?: Yes Implanted On Prior [facility] Admission?: Yes Date: 06/16/17 Results: 0 mm PPD to be Administered?: Yes - Reproductive History Patient is a Female of Child Bearing Age (11 -55 yrs old): Yes Last Menstrual Period: 12/14/17 Patient : No - Smoking Cessation Smoking history: Never smoked Have you smoked in the past 12 months: No Aproximately how many cigarettes per day: 20 Hx Chewing Tobacco Use: No Initiated information on smoking cessation: Yes 'Breaking Loose' booklet given: 01/17/18 - Substance & Tx. History Hx Alcohol Use: Yes Hx Substance Use: Yes Substance Use Type: Alcohol, Heroin, Marijuana Hx Substance Use Treatment: Yes ([facility] 09/21/17 to 09/26/17) - Substances Abused Heroin Route: Injection Frequency: Daily Amount used: 30 BAGS Age of first use: 26 Date of Last Use: 01/17/18 Alcohol Route: Oral Frequency: Daily Amount used: 1 LITER VODKA Age of first use: 17 Date of Last Use: 01/17/18 Marijuana/Hashish Route: Smoking Frequency: Daily Amount used: $30 Age of first use: 13 Date of Last Use: 01/16/18 Family Disease History - Family Disease History Family Disease History: Diabetes: Grandparent, Father (dependencies on alcohol and drugs ), Heart Disease: Grandparent, Respiratory: Grandparent, Father, Mother (dependencies on alcohol and drugs ), Brother, Sister, Other: Father, Mother Admission Physical Exam [facility] - Vital Signs Vital Signs: Vital Signs Temperature 97.4 F L 01/17/18 09:14 Pulse Rate 69 01/17/18 09:14 Respiratory Rate 20 01/17/18 09:14 Blood Pressure 104/64 01/17/18 09:14 O2 Sat by Pulse Oximetry (%) - Physical General Appearance: Yes: Moderate Distress, Tremorous, Irritable, Sweating, Anxious HEENTM: Yes: Normal ENT Inspection, ELLIOT, Pharynx Normal Respiratory: Yes: Lungs Clear, Normal Breath Sounds, No Respiratory Distress Neck: Yes: Within Normal Limits, Supple, Trachea in good position Breast: Yes: Breast Exam Deferred Cardiology: Yes: Regular Rate, S1, S2 Abdominal: Yes: Within Normal Limits, Normal Bowel Sounds, Soft Genitourinary: Yes: Within Normal Limits Musculoskeletal: Yes: full range of Motion, Back pain, Muscle Pain Extremities: Yes: Within Normal Limits, Tremors 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: Yes: Within Normal Limits, Alert, Motor Strength 5/5 Integumentary: Yes: Dry, Track [place] (eczema) Lymphatic: Yes: Within Normal Limits - Diagnostic (1) Opioid dependence with withdrawal Current Visit: No Status: Acute (2) Alcohol dependence with uncomplicated withdrawal Current Visit: No Status: Acute (3) Hepatitis C Current Visit: Yes Status: Acute (4) Encounter for monitoring Suboxone maintenance therapy Current Visit: No Status: Acute (5) Bipolar disorder Current Visit: No Status: Chronic Qualifiers: Current episode severity: unspecified (6) Bipolar disorder Current Visit: No Status: Chronic (7) Bronchial asthma Current Visit: No Status: Chronic Qualifiers: Asthma severity: moderate Asthma persistence: unspecified Asthma complication type: unspecified Qualified Code(s): J45.909 - Unspecified asthma , uncomplicated (8) Cannabis dependence Current Visit: No Status: Chronic (9) Hypertension Current Visit: No Status: Chronic Qualifiers: Hypertension type: essential hypertension Qualified Code(s): I10 - Essential (primary) hypertension (10) Nicotine dependence Current Visit: No Status: Chronic Qualifiers: Nicotine product type: cigarettes Substance use status: uncomplicated Qualified Code(s): F17.210 - Nicotine dependence, cigarettes, uncomplicated (11) Seizure disorder Current Visit: No Status: Chronic (12) Eczema Current Visit: No Status: Chronic Qualifiers: Eczema type: unspecified Qualified Code(s): L30.9 - Dermatitis, unspecified Cleared for Admission B[facility] - Detox or Rehab B[facility] Level of Care: Medically Managed Detox Regimen/Protocol: Methadone/Librium B[facility] Breath Alcohol Content Breath Alcohol Content: 0
[2018-01-17 09:16] VITALS: BMI 25.7
[2018-01-17] MEDS ORDERED: MAGNESIUM CITRATE 300 ML BOTTLE PO PRN (15:56)
[2018-01-17] MEDS ORDERED: MAG HYDROX/AL HYDROX/SIMETH 30 ML UNIT-DOSE CUP PO PRN (15:56)
[2018-01-17] MEDS ORDERED: guaiFENesin/D-METHORPHAN HB 10 ML UNIT-DOSE CUPS PO PRN (15:56)
[2018-01-17] MEDS ORDERED: LOPERAMIDE HCL 2 MG CAPSULE PO PRN (15:56)
[2018-01-17] MEDS ORDERED: ACETAMINOPHEN 325 MG TABLET (FP) PO PRN (15:56)
[2018-01-17] MEDS ORDERED: P-EPHED 60MG/TRIPROLIDI 2.5MG TABLET PO PRN (15:56)
[2018-01-17] MEDS ORDERED: MAGNESIUM HYDROX 2400MG/30ML ORAL SUSPENSION 30 ML CUP PO PRN (15:56)
[2018-01-17] MEDS ORDERED: CYCLOBENZAPRINE HCL 10 MG TABLET (FP) PO PRN (16:01)
[2018-01-17] MEDS ORDERED: ALBUTEROL SO4 8 GM HFA INHALER IH PRN (16:02)
[2018-01-17] MEDS ORDERED: METHADONE HCL 10 MG TABLET (FOR DETOX USE ONLY) PO ONE ×2 (17:00→23:00)
[2018-01-17] MEDS: chlordiazePOXIDE HCL 25 MG CAPSULE PO PRN (17:40)
[2018-01-17] MEDS: NICOTINE POLACRILEX 2 MG GUM BC PRN ×2 (20:38→23:31)
[2018-01-17] MEDS ORDERED: MELATONIN 5 MG TABLETS PO PRN (22:00)
[2018-01-17] MEDS: cloNIDine HCL 0.1 MG TABLET PO SCH (22:19)
[2018-01-17] MEDS: chlordiazePOXIDE HCL 25 MG CAPSULE PO SCH (22:19)
[2018-01-17] MEDS: MENTHOL/PHENOL 1 EACH UD MM PRN (22:20)
[2018-01-17] MEDS: levETIRAcetam 500 MG TABLET (FP) PO SCH (22:20)
[2018-01-17] MEDS: THIAMINE HCL 100 MG TABLET (FP) PO SCH (22:20)
[2018-01-18] MEDS: chlordiazePOXIDE HCL 25 MG CAPSULE PO PRN ×3 (00:31→20:42)
[2018-01-18] MEDS: IBUPROFEN 400 MG TABLET (FP) PO PRN (00:33)
[2018-01-18] MEDS: NICOTINE POLACRILEX 2 MG GUM BC PRN ×6 (02:07→20:38)
[2018-01-18] MEDS: chlordiazePOXIDE HCL 25 MG CAPSULE PO SCH ×4 (04:40→23:58)
[2018-01-18] MEDS: hydrOXYzine PAMOATE 25 MG CAPSULE (FP) PO PRN ×2 (06:55→20:42)
[2018-01-18] MEDS: MENTHOL/PHENOL 1 EACH UD MM PRN ×3 (06:56→16:52)
--- NOTE | 2018-01-18 07:42 | CONSULT ---
[facility] Psychiatric Consult - Data Date of interview: 01/18/18 Admission source: [facility] Identifying data: This is a 32 years old female, mother of two, living with family, on PA, with psychiatric hospitalization history, history of Bipolar Disorder, PTSD, with heroin and alcohol, nicotine and marijuana dependence,seeking detox,reporting withdrawal symptoms. Patient is on suboxone maintenance therapy Substance Abuse History: Smoking history: Never smoked. Have you smoked in the past 12 months: No. Aproximately how many cigarettes per day: 20. Hx Chewing Tobacco Use: No. Initiated information on smoking cessation: Yes. 'Breaking Loose' booklet given: 01/17/18. - Substance & Tx. History. Hx Alcohol Use: Yes. Hx Substance Use: Yes. Substance Use Type: Alcohol, Heroin, Marijuana. Hx Substance Use Treatment: Yes ([facility] 09/21/17 to 09/26/17). - Substances Abused. Heroin. Route: Injection. Frequency: Daily. Amount used: 30 BAGS. Age of first use: 26. Date of Last Use: 01/17/18. Alcohol. Route: Oral. Frequency: Daily. Amount used: 1 LITER VODKA. Age of first use: 17. Date of Last Use: 01/17/18. Marijuana/Hashish. Route: Smoking. Frequency: Daily. Amount used: $30. Age of first use: 13. Date of Last Use: 01/16/18 Medical History: Weigth loss history, brinchitis history, Eczema, HTN, Psychiatric History: pATIENT REPORTS HISTORY OF bIPOLAR dISORDER PTSD, rports m ost recent psychiatric admission on 3 momths ago for safety, reports history of suicidal ideations and OD with psychiatric medications, lat time on 2015, reports no suicidal attempts since then.Patient reports no suaicidal ideation at this time, reports taking prior to admission: Seroquel 50mg poqd, 300mg po qhs. Cogentin o,5mg po tid. Thotazin 25mg poqd. Gabapentin 800mg po bid. Ambien 10mg po qhs Physical/Sexual Abuse/Trauma History: Denies Additional Comment: Seroquel 50mg poqd, 300mg po qhs. Cogentin o,5mg po tid. Thotazin 25mg poqd. Gabapentin 800mg po bid. Ambien 10mg po qhs Mental Status Exam - Mental Status Exam Alert and Oriented to: Person Cognitive Function: Fair Patient Appearance: Well Groomed Mood: Anxious Affect: Labile Patient Behavior: Impulsive, Cooperative Speech Pattern: Excessive Voice Loudness: Normal Thought Process: Goal Oriented Thought Disorder: Being Controlled Hallucinations: Denies Suicidal Ideation: Denies Homicidal Ideation: Denies Insight/Judgement: Fair Sleep: Difficulty falling asleep Appetite: Fair Muscle strength/Tone: Mild Hypertonicity Gait/Station: Normal Additional Comments: Seroquel 50mg poqd, 300mg po qhs. Cogentin o,5mg po tid. Thotazin 25mg poqd. Gabapentin 800mg po bid. Ambien 10mg po qhs Psychiatric Findings - Problem List ([place] 1, 2,3) (1) Cocaine dependence Current Visit: No Status: Acute (2) Opioid dependence with withdrawal Current Visit: No Status: Acute (3) Opioid dependence with withdrawal Current Visit: No Status: Acute (4) Sedative, hypnotic or anxiolytic dependence with withdrawal, unspecified Current Visit: No Status: Acute (5) Alcohol dependence Current Visit: No Status: Chronic (6) Bipolar disorder Current Visit: No Status: Chronic Qualifiers: Current episode severity: unspecified (7) Cannabis dependence Current Visit: No Status: Chronic (8) Nicotine dependence Current Visit: No Status: Chronic Qualifiers: Nicotine product type: cigarettes Substance use status: uncomplicated Qualified Code(s): F17.210 - Nicotine dependence, cigarettes, uncomplicated (9) Opiate dependence Current Visit: No Status: Chronic (10) PTSD (post-traumatic stress disorder) Current Visit: No Status: Chronic - Initial Treatment Plan Initial Treatment Plan: Seroquel 50mg poqd, 300mg po qhs. Cogentin o,5mg po tid. Thotazin 25mg poqd. Gabapentin 800mg po bid. Ambien 10mg po qhs
[2018-01-18] MEDS ORDERED: TRIMETHOBENZAMIDE HCL 200MG/2ML INJ IM PRN (08:30)
[2018-01-18] MEDS ORDERED: COLLOIDAL OATMEAL 1 BAR EACH TP PRN (09:49)
[2018-01-18] MEDS ORDERED: HYDROCORTISONE 0.5% TOPICAL OINTMENT TUBE TP PRN (09:50)
[2018-01-18] MEDS ORDERED: levETIRAcetam 250 MG TABLET (FP) PO ONE (09:52)
[2018-01-18] MEDS ORDERED: METHADONE HCL 10 MG TABLET (FOR DETOX USE ONLY) PO SCH (10:00)
[2018-01-18] MEDS ORDERED: QUEtiapine FUMARATE 50 MG TABLET PO SCH (10:00)
[2018-01-18] MEDS ORDERED: PRENATAL VITAMINS W/ FOLIC ACID TABLET (FP) PO SCH (10:00)
[2018-01-18 10:33] LABS: HEMOGLOBIN 12.7 GM/dL (10.7-15.3); MCH 27.3 pg (25.7-33.7); MCHC 32.5 g/dl (32.0-36.0); MEAN CELL VOLUME 83.9 fl (80-96); MEAN PLT VOLUME 7.6 fl (7.5-11.1); PLATELET COUNT 289 K/MM3 (134-434); RBC 4.66 M/mm3 (3.60-5.2); RDW 14.1 % (11.6-15.6); WHITE BLOOD COUNT 9.1 K/mm3 (4.0-10.0)
[2018-01-18] MEDS ORDERED: ONDANSETRON *ODT* 4 MG TABLET SL ONE (10:33)
[2018-01-18] MEDS: GABAPENTIN 400 MG CAPSULE (FP) PO SCH ×2 (10:34→23:58)
[2018-01-18] MEDS: levETIRAcetam 500 MG TABLET (FP) PO SCH ×2 (10:34→23:58)
[2018-01-18] MEDS: cloNIDine HCL 0.1 MG TABLET PO SCH ×2 (10:34→23:58)
--- NOTE | 2018-01-18 10:48 | EKG ---
Test Reason : Blood Pressure : / mmHG Vent. Rate : 069 BPM Atrial Rate : 069 BPM P-R Int : 132 ms QRS Dur : 074 ms QT Int : 420 ms P-R-T Axes : 079 062 049 degrees QTc Int : 450 ms POOR DATA QUALITY, INTERPRETATION MAY BE ADVERSELY AFFECTED NORMAL SINUS RHYTHM POSSIBLE LEFT ATRIAL ENLARGEMENT ANTEROSEPTAL INFARCT , AGE UNDETERMINED ABNORMAL ECG WHEN COMPARED WITH ECG OF 24-SEP-2017 10:12, ST NOW DEPRESSED IN ANTERIOR LEADS Confirmed by DANIELLA KING, CORRINA ([id number]) on 01/18/2018 10:47:39 AM Referred By: Confirmed By:CORRINA BREWER MD
--- NOTE | 2018-01-18 11:01 | PN ---
[facility] CIWA - CIWA Score Nausea/Vomitin-Mild Nausea/No Vomiting Muscle Tremors: 4-Moderate,w/Arms Extend Anxiety: 2 Agitation: 2 Paroxysmal Sweats: 1-Minimal Palms Moist Orientation: 1-Uncertain about Date Tacttile Disturbances: 1-Very Mild Itch/Numbness Auditory Disturbances: 0-None Visual Disturbances: 0-None Headache: 1-Very Mild CIWA-Ar Total Score: 13 BHS COWS - Scale Resting Pulse: 1= DE 81-100 Sweatin= Chills/Flushing Restless Observation: 1= Difficult to Sit Still Pupil Size: 0= Normal to Room Light Bone or Joint Aches: 2= Severe Diffuse Aches Runny Nose/ Eye Tearin= Nasal Congestion GI Upset > 30mins: 2= Nausea/Diarrhea Tremor Observation of Outstretched Hands: 1= Tremor [place], Not Seen Yawning Observation: 1= 1-2x During Session Anxiety or Irritability: 1=Feels Anxious/Irritable Goose Flesh Skin: 0=Smooth Skin COWS Score: 11 [facility] Progress Note (SOAP) Subjective: body ache tremor sweat joints pain restlessness anxiety itching skin Objective: 01/18/18 11:01 Vital Signs Temperature 99.2 F 01/18/18 10:02 Pulse Rate 72 01/18/18 10:02 Respiratory Rate 18 01/18/18 10:02 Blood Pressure 116/69 01/18/18 10:02 O2 Sat by Pulse Oximetry (%) Laboratory Last Values WBC 9.1 K/mm3 (4.0-10.0) 01/18/18 06:00 RBC 4.66 M/mm3 (3.60-5.2) 01/18/18 06:00 Hgb 12.7 GM/dL (10.7-15.3) 01/18/18 06:00 Hct 39.0 % (32.4-45.2) 01/18/18 06:00 MCV 83.9 fl (80-96) 01/18/18 06:00 MCH 27.3 pg (25.7-33.7) 01/18/18 06:00 MCHC 32.5 g/dl (32.0-36.0) 01/18/18 06:00 RDW 14.1 % (11.6-15.6) D 01/18/18 06:00 Plt Count 289 K/MM3 (134-434) 01/18/18 06:00 MPV 7.6 fl (7.5-11.1) 01/18/18 06:00 lab noted Assessment: 01/18/18 11:01 withdrawal sx 01/18/18 11:02 seizure Plan: continue detox [facility]
[2018-01-18 11:02] LABS: ALBUMIN 3.8 g/dl (3.4-5.0); ALK PHOS 93 U/L (45-117); ANION GAP 7 MMOL/L (8-16); BILIRUBIN,TOTAL 0.6 mg/dL (0.2-1); BLOOD UREA NITROGEN 17 mg/dL (7-18); CALCIUM 9.2 mg/dL (8.5-10.1); CHLORIDE 102 mmol/L (98-107); CO2 30 mmol/L (21-32); CREATININE 0.8 mg/dL (0.55-1.3); GLUCOSE,RANDOM 107 mg/dL (74-106); POTASSIUM 4.2 mmol/L (3.5-5.1); SGOT/AST 26 U/L (15-37); SGPT/ALT 23 U/L (13-61); SODIUM 139 mmol/L (136-145); TOT PROT 7.6 g/dl (6.4-8.2)
--- NOTE | 2018-01-18 13:50 | EKG ---
Test Reason : Blood Pressure : / mmHG Vent. Rate : 073 BPM Atrial Rate : 073 BPM P-R Int : 140 ms QRS Dur : 090 ms QT Int : 414 ms P-R-T Axes : 059 065 042 degrees QTc Int : 456 ms NORMAL SINUS RHYTHM CANNOT RULE OUT ANTERIOR INFARCT (CITED ON OR BEFORE 17-JAN-2018) ABNORMAL ECG WHEN COMPARED WITH ECG OF 17-JAN-2018 17:03, QUESTIONABLE CHANGE IN INITIAL FORCES OF ANTERIOR LEADS ST NO LONGER DEPRESSED IN ANTERIOR LEADS Confirmed by DANIELLA KING, CORRINA ([id number]) on 01/18/2018 1:49:33 PM Referred By: Confirmed By:CORRINA BREWER MD
[2018-01-18] MEDS: BENZTROPINE MESYLATE 1 MG TABLET (FP) PO SCH ×2 (14:07→23:58)
[2018-01-18] MEDS: chlorproMAZINE HCL 25 MG TABLET PO PRN (16:53)
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
[2018-01-18] MEDS ORDERED: ZOLPIDEM TARTRATE 10 MG TABLET (PARK CARE ONLY) PO PRN (22:00)
[2018-01-18] MEDS ORDERED: QUEtiapine FUMARATE 300 MG TABLET PO SCH (22:00)
[2018-01-18] MEDS: THIAMINE HCL 100 MG TABLET (FP) PO SCH (23:59)
[2018-01-19] MEDS: chlordiazePOXIDE HCL 25 MG CAPSULE PO PRN (01:51)
[2018-01-19] MEDS: IBUPROFEN 400 MG TABLET (FP) PO PRN ×2 (02:13→02:17)
[2018-01-19] MEDS: hydrOXYzine PAMOATE 25 MG CAPSULE (FP) PO PRN (03:07)
[2018-01-19] MEDS: NICOTINE POLACRILEX 2 MG GUM BC PRN ×2 (03:11→05:29)
[2018-01-19] MEDS: MENTHOL/PHENOL 1 EACH UD MM PRN (03:12)
[2018-01-19] MEDS: BENZTROPINE MESYLATE 1 MG TABLET (FP) PO SCH (05:27)
[2018-01-19] MEDS: chlordiazePOXIDE HCL 25 MG CAPSULE PO SCH (05:27)
[2018-01-19] MEDS: chlorproMAZINE HCL 25 MG TABLET PO PRN (05:33)
[2018-01-19 09:19] VITALS: BP 131/65; PULSE 92; TEMP 97.7
[2018-01-19] MEDS ORDERED: METHADONE HCL 5 MG TABLET (FOR DETOX USE ONLY) PO SCH (10:00)
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
[2018-01-19] MEDS ORDERED: chlordiazePOXIDE 5 MG CAPSULE PO SCH (23:00)
[2018-01-20] MEDS ORDERED: chlordiazePOXIDE HCL 10 MG CAPSULE PO SCH (23:00)
[2018-01-21] MEDS ORDERED: METHADONE HCL 10 MG TABLET (FOR DETOX USE ONLY) PO SCH (10:00)
[2018-01-22] MEDS ORDERED: METHADONE HCL 5 MG TABLET (FOR DETOX USE ONLY) PO SCH (06:00)
== END 2018-01-19 09:30 | disposition left against medical advice (07) | DRG 773 ==
LOC: YASAS 09:01 → Y6N 15:59
PROC: HZ2ZZZZ Detoxification Services for Substance Abuse Treatment (ICD-10-PCS; principal; 2018-01-17)
DX: F11.23 Opioid dependence with withdrawal (principal); F10.230 Alcohol dependence with withdrawal, uncomplicated; F13.230 Sedative, hypnotic or anxiolytic dependence with withdrawal, uncomplicated; F12.20 Cannabis dependence, uncomplicated; F17.213 Nicotine dependence, cigarettes, with withdrawal; F91.8 Other conduct disorders; F31.9 Bipolar disorder, unspecified; F43.10 Post-traumatic stress disorder, unspecified; I10 Essential (primary) hypertension; J45.20 Mild intermittent asthma, uncomplicated; B19.20 Unspecified viral hepatitis C without hepatic coma; L30.9 Dermatitis, unspecified; G40.909 Epilepsy, unspecified, not intractable, without status epilepticus; S61.254A Open bite of right ring finger without damage to nail, initial encounter; Y04.1XXA Assault by human bite, initial encounter; Y93.89 Activity, other specified; Y92.238 Other place in hospital as the place of occurrence of the external cause; Z91.19 Patient's noncompliance with other medical treatment and regimen; Z91.013 Allergy to seafood; Z91.5 Personal history of self-harm
CPT/HCPCS: 36415; 80053; 85027; 86593; 87389; 93005; 93010; J0735

== ENCOUNTER 2018-01-18 22:51 | Emergency (ER) | payer OTHER ==
[2018-01-18 23:03] VITALS: BP 109/60; PULSE 93; TEMP 98.2; BMI 27.4
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
[2018-01-19] MEDS ORDERED: DIPHTH,PERTUSS(ACELL),TET 0.5 ML DISP.SYRIN IM ONE (00:29)
[2018-01-19] MEDS ORDERED: AMOX TR/POT CLAV 875MG/125MG TABLETS (FP) PO ONE ×2 (00:29→00:38)
== END 2018-01-19 01:01 | disposition home or self-care (01) ==
LOC: JER 22:51
PROC: 3E0234Z Introduction of Serum, Toxoid and Vaccine into Muscle, Percutaneous Approach (ICD-10-PCS; principal; 2018-01-18)
DX: S61.257A Open bite of left little finger without damage to nail, initial encounter (principal); Y04.1XXA Assault by human bite, initial encounter; Y93.89 Activity, other specified; Y92.238 Other place in hospital as the place of occurrence of the external cause; Y99.8 Other external cause status; I10 Essential (primary) hypertension; G40.909 Epilepsy, unspecified, not intractable, without status epilepticus; F11.20 Opioid dependence, uncomplicated; F10.20 Alcohol dependence, uncomplicated; F12.20 Cannabis dependence, uncomplicated
CPT/HCPCS: 90715; 99281-25

== ENCOUNTER 2020-01-11 09:41 | Inpatient (IN) | payer OTHER ==
--- OUTSIDE RECORDS SUMMARY | 2020-01-11 09:47 | XMS ---
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 activity/volume] Aminotransferase Center in Serum or Plasma (ALT) </content>19 IU/L<content styleCode="Italic s"> (7-30 IU/L)</content> UNK > 60 <content Saint styleCode="Bold"> [facility] EGFR Medical </content>104 Center GFR<content styleCode="Italic s"> (> 60 GFR)</content> Aspartate 14-36 Above high <content Saint aminotransferase normal styleCode="Bold"> Gabriel hs [Enzymatic Aspartate Medical activity/volume] Aminotransferase Center in Serum or Plasma (AST) </content>38 IU/L H<content styleCode="Italic s"> (14-36 IU/L)</content> Calcium 8.4-10. <content Saint [Mass/volume] in 2 styleCode="Bold"> Gabriel hs Serum or Plasma Calcium Medical </content>9.5 Center MG/DL<content styleCode="Italic s"> (8.4-10.2 MG/DL)</content> Glucose 74-106 <content Saint [Mass/volume] in styleCode="Bold"> Gabriel hs Serum or Plasma Glucose Medical </content>95 Center MG/DL<content styleCode="Italic s"> (74-106 MG/DL)</content> Albumin 3.5-5.0 <content Saint [Mass/volume] in styleCode="Bold"> Gabriel hs Serum or Plasma Albumin Medical </content>4.8 Center G/DL<content styleCode="Italic s"> (3.5-5.0 G/DL)</content> Alkaline 38-126 <content Saint phosphatase styleCode="Bold"> Lupe [Enzymatic Alkaline Medical activity/volume] Phosphatase (ALP) Cente r in Serum or Plasma </content>72 IU/L<content styleCode="Italic s"> (38-126 IU/L)</content> Bilirubin.total 0.2-1.3 <content Saint [Mass/volume] in styleCode="Bold"> Gabriel hs Serum or Plasma Bilirubin Total Medical </content>0.3 Center MG/DL<content styleCode="Italic s"> (0.2-1.3 MG/DL)</content> Procedure Social History Code Duration Value Status Description Data Source(s ) Smoking 03/01/2019 09:42:00 Daily Smoker completed Daily Smoker S [facility] EST Center Smoking 03/01/2019 05:10:00 Daily Smoker completed Daily Smoker S [facility] EST Center Smoking 03/01/2019 05:10:00 Daily Smoker completed Daily Smoker S [facility] EST Center Smoking 12/02/2018 12:41:00 Daily Smoker completed Daily Smoker S [facility] EDT Center Smoking 12/01/2018 11:20:00 Daily Smoker completed Daily Smoker S [facility] EDT Center Smoking 11/15/2018 11:56:00 Daily Smoker completed Daily Smoker S [facility] EDT Center Smoking 11/15/2018 11:42:00 Daily Smoker completed Daily Smoker S [facility] EDT Center Smoking 11/15/2018 10:24:00 Daily Smoker completed Daily Smoker S [facility] EDT Center Smoking 11/15/2018 09:25:00 Daily Smoker completed Daily Smoker S [facility] EDT Center Smoking 11/15/2018 09:19:00 Daily Smoker completed Daily Smoker S [facility] EDT Center Vital Signs ID Date Data Source UNK Name Value Range Interpretation Code Description Data Source(s) Body temperature 36.670393 36.721850 [facility] Respiratory rate 17 /min 17 /min [facility] Oxygen saturation 99 % 99 % [facility] Arter[facility] blood [facility] by Pulse oximetry Heart rate 95 /min 95 /min [facility] Diastolic blood 66 mm[Hg] 66 mm[Hg] [facility] pressure Medical [place] Systolic blood 114 mm[Hg] 114 mm[Hg] [facility] Body temperature 36.293765 36.922619 [facility] Respiratory rate 18 /min 18 /min [facility] Oxygen saturation 100 % 100 % [facility] Arterial blood [facility] by Pulse oximetry Heart rate 80 /min 80 /min [facility] Diastolic blood 90 mm[Hg] 90 mm[Hg] [facility] [place] Systolic blood 129 mm[Hg] 129 mm[Hg] [facility] Heart rate 82 /min 82 /min [facility] Diastolic blood 63 mm[Hg] 63 mm[Hg] [facility] Systolic blood 119 mm[Hg] 119 mm[Hg] [facility] Body temperature 36.433048 36.133371 [facility] Respiratory rate 18 /min 18 /min [facility] Oxygen saturation 100 % 100 % [facility] blood [facility] by Pulse oximetry Body temperature 36.751332 36.098121 [facility] Respiratory rate 17 /min 17 /min [facility] Oxygen saturation 97 % 97 % [facility] blood [facility] by Pulse oximetry Heart rate 73 /min 73 /min [facility] Diastolic blood 68 mm[Hg] 68 mm[Hg] [facility] Systolic blood 111 mm[Hg] 111 mm[Hg] [facility] Body temperature 36.248003 36.186453 [facility] Respiratory rate 19 /min 19 /min [facility] Oxygen saturation 95 % 95 % [facility] Arterial blood [facility] by Pulse oximetry Heart rate 77 /min 77 /min [facility] Diastolic blood 60 mm[Hg] 60 mm[Hg] [facility] pressure Medical Center Systolic blood 109 mm[Hg] 109 mm[Hg] [facility] Body weight 65.309935 kg 65.507463 kg [facility] Body height 165.726161 165.193525 cm [facility] Center Body mass index 24.1 kg/m2 24.1 kg/m2 [facility] (BMI) [Ratio] Medical [address] Body weight 65.992408 kg 65.215707 kg [facility] Body temperature 36.741587 36.265085 [facility] Respiratory rate 17 /min 17 /min [facility] Oxygen saturation 98 % 98 % [facility] Arterial blood [facility] by Pulse oximetry Heart rate 113 /min 113 /min [facility] Diastolic blood 73 mm[Hg] 73 mm[Hg] [facility] Systolic blood 125 mm[Hg] 125 mm[Hg] [facility] Body temperature 36.736586 36.047175 [facility] Respiratory rate 17 /min 17 /min [facility] Oxygen saturation 99 % 99 % [facility] Arterial blood [facility] by Pulse oximetry Heart rate 69 /min 69 /min [facility] Diastolic blood 65 mm[Hg] 65 mm[Hg] [facility] Center Systolic blood 105 mm[Hg] 105 mm[Hg] [facility] Center Body temperature 36.973752 36.783004 [facility] Respiratory rate 17 /min 17 /min [facility] Oxygen saturation 100 % 100 % [facility] Arterial blood [facility] Center by Pulse oximetry Heart rate 98 /min 98 /min [facility] Diastolic blood 77 mm[Hg] 77 mm[Hg] [facility] Systolic blood 133 mm[Hg] 133 mm[Hg] [facility]
--- NOTE | 2020-01-11 09:48 | BHS.RME ---
Substance Use & Tx History - Substance Use History Alcohol Substance amount: 1 liter vodka Frequency of use: Daily Substance route: Oral Date of Last Use: 01/11/20 (started age 14) Heroin Substance amount: 2 bundles Frequency of use: Daily Substance route: Inhalation (ex: sniffing or snorting), Injection (ex: intravenous or skin popping) Date of Last Use: 01/11/20 (started age 31) Marijuana/Hashish Substance amount: 1 gram Frequency of use: Daily Substance route: Smoking Date of Last Use: 01/10/20 (started age 15) Nicotine Substance amount: 1 pack Frequency of use: Daily Substance route: Smoking Date of Last Use: 01/11/20 (started age 14) - Last Treatment Date of last treatment: 01/17-01/19/18 had to be administratively discharged due to aggressive Treatment type: Substance Use Disorder (DAREK) Where was last treatment: Detox Physical/Psych/Mental Status - Behavior General Behavior: Increased activity (restlessness, agitation) Eye Contact: Normal - Cooperativeness Cooperativeness: Cooperative - Thinking Thought Processes: Tight, Logical, Goal Directed - Physical Health Problems Is patient presently having any pain?: No Does patient presently have any injuries (include location): No Does patient currently have a fever: No Is patient : No COWS - Scale Resting Pulse: 1= SD 81-100 Sweatin= Chills/Flushing Restless Observation: 1= Difficult to Sit Still Pupil Size: 1= Pupils >than Normal Bone or Joint Aches: 1= Mild Discomfort Runny Nose/ Eye Tearin= Nasal Congestion GI Upset > 30mins: 1= Stomach Cramp Tremor Observation: 1= Tremor [place], Not Seen Yawning Observation: 1= 1-2x During Session Anxiety or Irritability: 1=Feels Anxious/Irritable Goose Flesh Skin: 3=Piloerection COWS Score: 13 CIWA Nausea/Vomitin Muscle Tremors: 4-Moderate,w/Arms Extend Anxiety: 4-Mod. Anxious/Guarded Agitation: 4-Moderately Restless Paroxysmal Sweats: 3 Orientation: 0-Oriented Tacttile Disturbances: 0-None Auditory Disturbances: 0-None Visual Disturbances: 1-Very Mild Sensitivity Headache: 5-Severe CIWA-Ar Total Score: 23
[2020-01-11 10:23] VITALS: BMI 27.1
[2020-01-11] MEDS ORDERED: chlordiazePOXIDE HCL 25 MG CAPSULE ONE (10:44)
--- NOTE | 2020-01-11 10:46 | HP ---
COWS - Scale Resting Pulse: 1= [place] 81-100 Sweatin= Chills/Flushing Restless Observation: 1= Difficult to Sit Still Pupil Size: 1= Pupils >than Normal Bone or Joint Aches: 1= Mild Discomfort Runny Nose/ Eye Tearin= Nasal Congestion GI Upset > 30mins: 1= Stomach Cramp Tremor Observation: 1= Tremor [place], Not Seen Yawning Observation: 1= 1-2x During Session Anxiety or Irritability: 1=Feels Anxious/Irritable Goose Flesh Skin: 3=Piloerection COWS Score: 13 CIWA Score Nausea/Vomitin Muscle Tremors: 4-Moderate,w/Arms Extend Anxiety: 4-Mod. Anxious/Guarded Agitation: 4-Moderately Restless Paroxysmal Sweats: 3 Orientation: 0-Oriented Tacttile Disturbances: 0-None Auditory Disturbances: 0-None Visual Disturbances: 1-Very Mild Sensitivity Headache: 5-Severe CIWA-Ar Total Score: 23 - Admission Criteria OASAS Guidelines: Admission for Medically Managed Detox: Requires at least one of the followin. CIWA greater than 12 2. Seizures within the past 24 hours 3. Delirium tremens within the past 24 hours 4. Hallucinations within the past 24 hours 5. Acute intervention needed for co occurring medical disorder 6. Acute intervention needed for co occurring psychiatric disorder 7. Severe withdrawal that cannot be handled at a lower level of care (continued vomiting, continued diarrhea, abnormal vital signs) requiring intravenous medication and/or fluids 8. Admitting History and Physical - Past Medical History ...LMP: 12/14/17 - Smoking History Smoking history: Never smoked Have you smoked in the past 12 months: No Aproximately how many cigarettes per day: 20 - Alcohol/Substance Use Hx Alcohol Use: Yes Admission [facility] Chief Complaint: " I got a job offer in [facility]. My just passed from [employer]" Allergies/Adverse Reactions: Allergies Allergy/AdvReac Type Severity Reaction Status Date / Time Fish Containing Products Allergy Severe Rash Verified 01/18/18 23:03 lamotrigine [From Lamictal] Allergy Severe Rash Verified 01/18/18 23:03 History of Present Illness: 34 year old female with history of alcohol dependence with withdrawals, opoid use disorder, cannabis use disorder, and cocaine use disorder.- Substance Use History Alcohol Substance amount: 1 liter vodka Frequency of use: Daily Substance route: Oral Date of Last Use: 01/11/20 (started age 14) Admits to blackouts just last week, and 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 Heroin Substance amount: 2 bundles Frequency of use: Daily Substance route: Inhalation (ex: sniffing or snorting), Injection (ex: intravenous or skin popping) Date of Last Use: 01/11/20 (started age 31) Marijuana/Hashish Substance amount: 1 gram Frequency of use: Daily Substance route: Smoking Date of Last Use: 01/10/20 (started age 15) Nicotine Substance amount: 1 pack Frequency of use: Daily Substance route: Smoking Date of Last Use: 01/11/20 (started age 14) - Last Treatment Date of last treatment: 01/17-01/19/18 had to be administratively discharged due to aggressive Treatment type: Substance Use Disorder (DAREK) Where was last treatment: Detox PMH: Asthma, HCV, Eczema, HTN, Epilepsy Psurg: None Psych: Bipolar, PTSD ( +2015) She lives in [place] alone No legal problems. Exam Limitations: No Limitations - Ebola screening Have you traveled outside of the country in the last 21 days: No Have you had contact with anyone from an Ebola affected area: No Have you been sick,other than usual withdrawal symptoms: No Do you have a fever: No - Review of Systems Constitutional: Chills, Unintentional Wgt. Loss EENT: reports: No Symptoms Reported Respiratory: reports: No Symptoms reported Cardiac: reports: No Symptoms Reported GI: reports: No Symptoms Reported : reports: No Symptoms Reported Musculoskeletal: reports: No Symptoms Reported Integumentary: reports: No Symptoms Reported Neuro: reports: No Symptoms reported Endocrine: reports: No Symptoms Reported Hematology: reports: No Symptoms Reported Psychiatric: reports: Judgement Intact, Mood/Affect Appropiate, Orientated x3, Agitated Other Systems: Reviewed and Negative Patient History - Patient Medical History Hx Anemia: No Hx Asthma: Yes Hx Chronic Obstructive Pulmonary Disease (COPD): No Hx Cancer: No Hx Cardiac Disorders: No Hx Congestive Heart Failure: No Hx Hypertension: Yes Hx Hypercholesterolemia: No Hx Pacemaker: No HX Cerebrovascular Accident: No Hx Seizures: Yes (last one 3 days ago) Hx Dementia: No Hx Diabetes: No Hx Gastrointestinal Disorders: No Hx Liver Disease: No Hx Genitourinary Disorders: No Hx Sexually Transmitted Disorders: No Hx Renal Disease (ESRD): No Hx Thyroid Disease: No Hx Human Immunodeficiency Virus (HIV): No Hx Hepatitis C: No Hx Depression: Yes Hx Suicide Attempt: Yes (pill overdose in 2016) Hx Bipolar Disorder: Yes Hx Schizophrenia: No - Patient Surgical History Past Surgical History: Yes Hx Neurologic Surgery: No Hx Cataract Extraction: No Hx Cardiac Surgery: No Hx Lung Surgery: No Hx Breast Surgery: No Hx Breast Biopsy: No Hx Abdominal Surgery: No Hx Appendectomy: No Hx Cholecystectomy: No Hx Genitourinary Surgery: No Hx Section: Yes (x2 last 2012) Hx Orthopedic Surgery: No Anesthesia Reaction: No - PPD History Previous Implant?: Yes Documented Results: Negative w/proof Implanted On Prior [facility] Admission?: No Date: 06/16/17 Results: 0 mm PPD to be Administered?: Yes - Reproductive History Last Menstrual Period: 12/14/17 - Smoking Cessation Smoking history: Never smoked Have you smoked in the past 12 months: No Aproximately how many cigarettes per day: 20 Hx Chewing Tobacco Use: No Initiated information on smoking cessation: Yes 'Breaking Loose' booklet given: 01/10/20 - Substances abused Alcohol Other (specify): 1 gallon Substance route: Oral Frequency: Daily Age of first use: 17 Date of last use: 01/10/20 Heroin Other (specify): 1 bundle Substance route: Inhalation Frequency: Daily Age of first use: 26 Marijuana/Hashish Other (specify): 1 blunts Substance route: Smoking Frequency: Daily Age of first use: 13 Date of last use: 01/10/20 Admission Physical Exam [facility] - Vital Signs Vital Signs: Vital Signs - 24 hr 01/11/20 10:13 Temperature 97.8 F Pulse Rate 93 H Respiratory 18 Rate Blood Pressure 136/91 - Physical General Appearance: Yes: Mild Distress, Thin, Tremorous, Irritable, Sweating, Anxious HEENTM: Yes: EOMI, Hearing grossly Normal, Normal ENT Inspection, Normocephalic, Normal Voice, ELLIOT, Pharynx Normal, Tm's normal Respiratory: Yes: Chest Non-Tender, Lungs Clear, Normal Breath Sounds Neck: Yes: No masses,lesions,Nodules, Supple, Trachea in good position Breast: Yes: Breast Exam Deferred Cardiology: Yes: Regular Rhythm, S1, S2, Tachycardia Abdominal: Yes: Normal Bowel Sounds, Non Tender, Soft Genitourinary: Yes: Within Normal Limits Back: Yes: Within Normal Limits, Normal Inspection Musculoskeletal: Yes: full range of Motion, Gait Steady, Pelvis Stable Extremities: Yes: Normal Capillary Refill, Normal Inspection, Normal Range of Motion, Non-Tender 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: 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: 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, Fully Oriented, Alert, Motor Strength 5/5, Normal Mood/Affect, Normal Response Integumentary: Yes: Normal Color, Dry, Warm Lymphatic: Yes: Within Normal Limits - Diagnostic (1) Alcohol dependence with uncomplicated withdrawal Current Visit: Yes Status: Acute (2) Cocaine dependence Current Visit: Yes Status: Acute (3) History of hepatitis C Current Visit: Yes Status: Acute (4) IV drug user Current Visit: Yes Status: Acute (5) Nicotine dependence Current Visit: Yes Status: Acute Qualifiers: Nicotine product type: cigarettes Substance use status: in withdrawal Qualified Code(s): F17.213 - Nicotine dependence, cigarettes, with withdrawal (6) Opioid dependence with withdrawal Current Visit: Yes Status: Acute Cleared for Admission [facility] - Detox or Rehab [facility] Level of Care: Medically Managed Detox Regimen/Protocol: Librium Claeared for Rehab Admission: No Screened but not Admitted - Documentation of Visit Screened but not Admitted: No Breathalyzer - Breathalyzer Breathalyzer: 0.148 Vital Signs - Vital Signs Vital signs refused: No Temperature: 97.8 F Pulse Rate: 93 Respiratory Rate: 18 Blood Pressure: 136/91 BP Location: Right Arm Blood Pressure position: Sitting - Height Height: 5 ft 4 in - Weight Weight: 158 lb Weight measurement method: Standing scale - BMI Body Mass Index (BMI): 27.1 - Bowel Function Bowel Movement: No Urine Drug Screen - Test Device Lot number: [id number] Expiration date: 07/10/21 - Control Is test valid?: Yes - Results Drug screen NEGATIVE: No Urine drug screen results: THC-Marijuana, GUILLERMINA-Cocaine, FEN-Fentanyl, MOP- Opiates, MTD-Methadone Inpatient Rehab Admission - Rehab Decision to Admit Inpatient rehab admission?: No
[2020-01-11] MEDS ORDERED: MAGNESIUM CITRATE 300 ML BOTTLE PO PRN (10:57)
[2020-01-11] MEDS ORDERED: IBUPROFEN 400 MG TABLET (FP) PO PRN (10:57)
[2020-01-11] MEDS ORDERED: BISMUTH SUBSALICYLATE 262 MG/15 ML BTL PO PRN (10:57)
[2020-01-11] MEDS ORDERED: METHOCARBAMOL 500 MG TABLET PO PRN (10:57)
[2020-01-11] MEDS ORDERED: MENTHOL/PHENOL 1 EACH UD MM PRN (10:57)
[2020-01-11] MEDS ORDERED: ACETAMINOPHEN 325 MG TABLET (FP) PO PRN ×2 (10:57)
[2020-01-11] MEDS ORDERED: MAGNESIUM HYDROX 2400MG/30ML ORAL SUSPENSION 30 ML CUP PO PRN (10:57)
[2020-01-11] MEDS ORDERED: ONDANSETRON *ODT* 4 MG TABLET SL PRN (10:57)
[2020-01-11] MEDS ORDERED: MAG HYDROX/AL HYDROX/SIMETH 30 ML UNIT-DOSE CUP PO PRN (10:57)
[2020-01-11] MEDS ORDERED: ALBUTEROL SO4 HFA INHALER IH PRN (10:59)
[2020-01-11] MEDS ORDERED: chlordiazePOXIDE HCL 25 MG CAPSULE PO ONE (11:00)
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
[2020-01-11] MEDS: PRENATAL VITAMINS W/ FOLIC ACID TABLET (FP) PO SCH (12:56)
[2020-01-11] MEDS: chlordiazePOXIDE HCL 25 MG CAPSULE PO SCH ×3 (12:56→22:04)
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
[2020-01-11] MEDS ORDERED: hydrOXYzine PAMOATE 25 MG CAPSULE (FP) PO SCH (14:00)
[2020-01-11 14:56] LABS: HEMATOCRIT 42.4 % (32.4-45.2); HEMOGLOBIN 14.2 GM/dL (10.7-15.3); MCHC 33.4 g/dl (32.0-36.0); MEAN CELL VOLUME 86.9 fl (80-96); MEAN PLT VOLUME 7.3 fl (7.5-11.1); PLATELET COUNT 333 K/MM3 (134-434); RBC 4.88 M/mm3 (3.60-5.2); RDW 13.9 % (11.6-15.6); WHITE BLOOD COUNT 8.1 K/mm3 (4.0-10.0)
[2020-01-11 15:06] LABS: ALBUMIN 4.2 g/dl (3.4-5.0); BILIRUBIN,TOTAL 0.2 mg/dL (0.2-1); BLOOD UREA NITROGEN 9.9 mg/dL (7-18); CALCIUM 9.1 mg/dL (8.5-10.1); CREATININE 0.6 mg/dL (0.55-1.3); POTASSIUM 4.1 mmol/L (3.5-5.1); TOT PROT 8.1 g/dl (6.4-8.2)
[2020-01-11] MEDS: NICOTINE 7 MG/24 HOURS TOPICAL PATCH TD SCH (16:15)
[2020-01-11] MEDS ORDERED: METHADONE HCL 10 MG TABLET (FOR DETOX USE ONLY) PO ONE (17:56)
[2020-01-11] MEDS: COLLOIDAL OATMEAL 1 BAR EACH TP PRN (18:03)
[2020-01-11] MEDS: NICOTINE POLACRILEX 2 MG GUM BUC PRN ×3 (18:08→22:09)
[2020-01-11] MEDS ORDERED: levETIRAcetam 250 MG TABLET PO ONE (21:13)
[2020-01-11] MEDS: QUEtiapine FUMARATE 300 MG TABLET PO SCH (22:04)
[2020-01-11] MEDS: levETIRAcetam 500 MG TABLET (FP) PO SCH (22:04)
[2020-01-11] MEDS: THIAMINE HCL 100 MG TABLET (FP) PO SCH (22:04)
[2020-01-11] MEDS: BENZTROPINE MESYLATE 1 MG TABLET PO SCH (22:05)
[2020-01-11] MEDS: MELATONIN 5 MG TABLETS PO SCH (23:38)
[2020-01-12] MEDS ORDERED: METHADONE HCL 10 MG TABLET ONE (04:21)
[2020-01-12] MEDS ORDERED: METHADONE HCL 40 MG DISPERSABLE TABLET ONE (04:22)
[2020-01-12] MEDS: chlordiazePOXIDE HCL 25 MG CAPSULE PO SCH ×4 (05:41→22:00)
[2020-01-12] MEDS: METHADONE 40 MG, METHADONE 30 MG PO SCH (05:43)
[2020-01-12] MEDS ORDERED: METHADONE HCL 10 MG TABLET PO SCH (06:00)
[2020-01-12] MEDS ORDERED: MASKS NR ONE ×2 (07:01→08:33)
[2020-01-12] MEDS: NICOTINE POLACRILEX 2 MG GUM BUC PRN ×4 (07:03→18:53)
[2020-01-12] MEDS: levETIRAcetam 500 MG TABLET (FP) PO SCH ×2 (10:38→21:53)
[2020-01-12] MEDS: QUEtiapine FUMARATE 50 MG TABLET PO SCH (10:38)
[2020-01-12] MEDS: BENZTROPINE MESYLATE 1 MG TABLET PO SCH ×2 (10:38→21:54)
[2020-01-12] MEDS: PRENATAL VITAMINS W/ FOLIC ACID TABLET (FP) PO SCH (10:39)
[2020-01-12] MEDS: hydrOXYzine PAMOATE 25 MG CAPSULE (FP) PO PRN ×3 (10:42→18:52)
[2020-01-12] MEDS: chlorproMAZINE HCL 25 MG TABLET PO PRN ×3 (10:43→21:54)
[2020-01-12] MEDS: NICOTINE 7 MG/24 HOURS TOPICAL PATCH TD SCH (10:46)
[2020-01-12] MEDS: chlordiazePOXIDE HCL 25 MG CAPSULE PO PRN (13:05)
--- NOTE | 2020-01-12 14:42 | PN ---
[facility] CIWA - CIWA Score Nausea/Vomitin-Mild Nausea/No Vomiting Muscle Tremors: 2 Anxiety: 4-Mod. Anxious/Guarded Agitation: 3 Paroxysmal Sweats: 3 Orientation: 0-Oriented Tacttile Disturbances: 0-None Auditory Disturbances: 0-None Visual Disturbances: 0-None Headache: 0-None Present CIWA-Ar Total Score: 13 S Progress Note (SOAP) Subjective: Complaints of anxiety, sweats,tremors, dry itchy skin,and mild nausea. Objective: 01/12/20 14:40 Vital Signs 01/12/20 01/12/20 08:30 13:40 Temperature 97.1 F L 96.6 F L Pulse Rate 101 H 93 H Respiratory 18 18 Rate Blood Pressure 110/68 147/77 O2 Sat by Pulse 100 Oximetry (%) Laboratory Last Values WBC 8.1 K/mm3 (4.0-10.0) 01/11/20 11:00 RBC 4.88 M/mm3 (3.60-5.2) 01/11/20 11:00 Hgb 14.2 GM/dL (10.7-15.3) 01/11/20 11:00 Hct 42.4 % (32.4-45.2) 01/11/20 11:00 MCV 86.9 fl (80-96) 01/11/20 11:00 MCH 29.0 pg (25.7-33.7) 01/11/20 11:00 MCHC 33.4 g/dl (32.0-36.0) 01/11/20 11:00 RDW 13.9 % (11.6-15.6) 01/11/20 11:00 Plt Count 333 K/MM3 (134-434) 01/11/20 11:00 MPV 7.3 fl (7.5-11.1) L 01/11/20 11:00 Sodium 141 mmol/L (136-145) 01/11/20 11:00 Potassium 4.1 mmol/L (3.5-5.1) 01/11/20 11:00 Chloride 105 mmol/L (98-107) 01/11/20 11:00 Carbon Dioxide 29 mmol/L (21-32) 01/11/20 11:00 Anion Gap 7 MMOL/L (8-16) L 01/11/20 11:00 BUN 9.9 mg/dL (7-18) 01/11/20 11:00 Creatinine 0.6 mg/dL (0.55-1.3) 01/11/20 11:00 Est GFR (CKD-EPI)AfAm 139.78 01/11/20 11:00 Est GFR (CKD-EPI)NonAf 120.61 01/11/20 11:00 Random Glucose 125 mg/dL (74-106) H 01/11/20 11:00 Calcium 9.1 mg/dL (8.5-10.1) 01/11/20 11:00 Total Bilirubin 0.2 mg/dL (0.2-1) 01/11/20 11:00 AST 30 U/L (15-37) 01/11/20 11:00 ALT 22 U/L (13-61) 01/11/20 11:00 Alkaline Phosphatase 88 U/L (45-117) 01/11/20 11:00 Total Protein 8.1 g/dl (6.4-8.2) 01/11/20 11:00 Albumin 4.2 g/dl (3.4-5.0) 01/11/20 11:00 Syphilis Serology Non-reactive (NONREACTIVE) 01/11/20 11:00 COVID-19 (MARY) Not detected (Not Detected) 01/11/20 11:11 HIV Ag/Ab Combo Qual Negative (NEGATIVE) 01/11/20 11:00 Labs noted. Assessment: 01/12/20 14:40 Patient seen and examined, alert and oriented x3, in acute respiratory distress. Full ROM, ambulatory in the unit without assistance. Skin warm to touch without lesions. withdrawal symptoms. Plan: Continue detox protocol. Hydrocortisone for itchy skin
[2020-01-12] MEDS: MELATONIN 5 MG TABLETS PO SCH (21:54)
[2020-01-12] MEDS: QUEtiapine FUMARATE 300 MG TABLET PO SCH (21:54)
[2020-01-12] MEDS: THIAMINE HCL 100 MG TABLET (FP) PO SCH (21:54)
[2020-01-12] MEDS: HYDROCORTISONE 0.5% TOPICAL OINTMENT TUBE TP PRN (21:58)
--- NOTE | 2020-01-12 22:52 | PN ---
[facility] Progress Note Note: Patient is suicidal. She reported to her nurse, Ms. Jess Yepez that she wants to kill herself. She is very agitated and has prior history of suicide attempt. Patient is to be transferred to [facility] ER for psych. evaluation. 1:1 constant observation initiated. Vital Signs Temperature 98.8 F 01/12/20 20:25 Pulse Rate 97 H 01/12/20 20:25 Respiratory Rate 18 01/12/20 20:25 Blood Pressure 135/74 01/12/20 20:25 O2 Sat by Pulse Oximetry (%) 98 01/12/20 20:25 Laboratory Last Values WBC 8.1 K/mm3 (4.0-10.0) 01/11/20 11:00 RBC 4.88 M/mm3 (3.60-5.2) 01/11/20 11:00 Hgb 14.2 GM/dL (10.7-15.3) 01/11/20 11:00 Hct 42.4 % (32.4-45.2) 01/11/20 11:00 MCV 86.9 fl (80-96) 01/11/20 11:00 MCH 29.0 pg (25.7-33.7) 01/11/20 11:00 MCHC 33.4 g/dl (32.0-36.0) 01/11/20 11:00 RDW 13.9 % (11.6-15.6) 01/11/20 11:00 Plt Count 333 K/MM3 (134-434) 01/11/20 11:00 MPV 7.3 fl (7.5-11.1) L 01/11/20 11:00 Sodium 141 mmol/L (136-145) 01/11/20 11:00 Potassium 4.1 mmol/L (3.5-5.1) 01/11/20 11:00 Chloride 105 mmol/L (98-107) 01/11/20 11:00 Carbon Dioxide 29 mmol/L (21-32) 01/11/20 11:00 Anion Gap 7 MMOL/L (8-16) L 01/11/20 11:00 BUN 9.9 mg/dL (7-18) 01/11/20 11:00 Creatinine 0.6 mg/dL (0.55-1.3) 01/11/20 11:00 Est GFR (CKD-EPI)AfAm 139.78 01/11/20 11:00 Est GFR (CKD-EPI)NonAf 120.61 01/11/20 11:00 Random Glucose 125 mg/dL (74-106) H 01/11/20 11:00 Calcium 9.1 mg/dL (8.5-10.1) 01/11/20 11:00 Total Bilirubin 0.2 mg/dL (0.2-1) 01/11/20 11:00 AST 30 U/L (15-37) 01/11/20 11:00 ALT 22 U/L (13-61) 01/11/20 11:00 Alkaline Phosphatase 88 U/L (45-117) 01/11/20 11:00 Total Protein 8.1 g/dl (6.4-8.2) 01/11/20 11:00 Albumin 4.2 g/dl (3.4-5.0) 01/11/20 11:00 Syphilis Serology Non-reactive (NONREACTIVE) 01/11/20 11:00 COVID-19 (MARY) Not detected (Not Detected) 01/11/20 11:11 HIV Ag/Ab Combo Qual Negative (NEGATIVE) 01/11/20 11:00 Action: Transfer patient to [facility] for Psych. evaluation
--- NOTE | 2020-01-13 03:16 | PN ---
[facility] Progress Note Note: Patient was cleared by [facility] to come back and continue detox. She reports that she was joking when she told another patient that she wanted to kill herself. Treatment contract obtained and patient promised to follow rules and regulations throughout her stay. Vital Signs Temperature 96.9 F L 01/13/20 06:10 Pulse Rate 99 H 01/13/20 06:10 Respiratory Rate 18 01/13/20 06:10 Blood Pressure 106/88 01/13/20 06:10 O2 Sat by Pulse Oximetry (%) 100 01/13/20 06:10 Laboratory Last Values WBC 8.1 K/mm3 (4.0-10.0) 01/11/20 11:00 RBC 4.88 M/mm3 (3.60-5.2) 01/11/20 11:00 Hgb 14.2 GM/dL (10.7-15.3) 01/11/20 11:00 Hct 42.4 % (32.4-45.2) 01/11/20 11:00 MCV 86.9 fl (80-96) 01/11/20 11:00 MCH 29.0 pg (25.7-33.7) 01/11/20 11:00 MCHC 33.4 g/dl (32.0-36.0) 01/11/20 11:00 RDW 13.9 % (11.6-15.6) 01/11/20 11:00 Plt Count 333 K/MM3 (134-434) 01/11/20 11:00 MPV 7.3 fl (7.5-11.1) L 01/11/20 11:00 Sodium 141 mmol/L (136-145) 01/11/20 11:00 Potassium 4.1 mmol/L (3.5-5.1) 01/11/20 11:00 Chloride 105 mmol/L (98-107) 01/11/20 11:00 Carbon Dioxide 29 mmol/L (21-32) 01/11/20 11:00 Anion Gap 7 MMOL/L (8-16) L 01/11/20 11:00 BUN 9.9 mg/dL (7-18) 01/11/20 11:00 Creatinine 0.6 mg/dL (0.55-1.3) 01/11/20 11:00 Est GFR (CKD-EPI)AfAm 139.78 01/11/20 11:00 Est GFR (CKD-EPI)NonAf 120.61 01/11/20 11:00 Random Glucose 125 mg/dL (74-106) H 01/11/20 11:00 Calcium 9.1 mg/dL (8.5-10.1) 01/11/20 11:00 Total Bilirubin 0.2 mg/dL (0.2-1) 01/11/20 11:00 AST 30 U/L (15-37) 01/11/20 11:00 ALT 22 U/L (13-61) 01/11/20 11:00 Alkaline Phosphatase 88 U/L (45-117) 01/11/20 11:00 Total Protein 8.1 g/dl (6.4-8.2) 01/11/20 11:00 Albumin 4.2 g/dl (3.4-5.0) 01/11/20 11:00 Syphilis Serology Non-reactive (NONREACTIVE) 01/11/20 11:00 COVID-19 ([facility]) Not detected (Not Detected) 01/11/20 11:11 HIV Ag/Ab Combo Qual Negative (NEGATIVE) 01/11/20 11:00 Action: Continue detox
[2020-01-13] MEDS: chlorproMAZINE HCL 25 MG TABLET PO PRN ×3 (03:49→22:04)
[2020-01-13] MEDS: chlordiazePOXIDE HCL 25 MG CAPSULE PO PRN ×2 (03:49→13:51)
[2020-01-13] MEDS: hydrOXYzine PAMOATE 25 MG CAPSULE (FP) PO PRN ×2 (03:49→13:52)
[2020-01-13] MEDS ORDERED: METHADONE HCL 10 MG TABLET ONE (05:16)
[2020-01-13] MEDS ORDERED: METHADONE HCL 40 MG DISPERSABLE TABLET ONE (05:16)
[2020-01-13] MEDS: METHADONE 40 MG, METHADONE 30 MG PO SCH (06:04)
[2020-01-13] MEDS: chlordiazePOXIDE HCL 25 MG CAPSULE PO SCH ×4 (06:54→22:05)
[2020-01-13] MEDS: NICOTINE POLACRILEX 2 MG GUM BUC PRN ×5 (06:57→20:36)
[2020-01-13] MEDS: PRENATAL VITAMINS W/ FOLIC ACID TABLET (FP) PO SCH (10:04)
[2020-01-13] MEDS: BENZTROPINE MESYLATE 1 MG TABLET PO SCH ×2 (10:05→22:05)
[2020-01-13] MEDS: QUEtiapine FUMARATE 50 MG TABLET PO SCH (10:05)
[2020-01-13] MEDS: levETIRAcetam 500 MG TABLET (FP) PO SCH ×2 (10:05→22:05)
[2020-01-13] MEDS: NICOTINE 7 MG/24 HOURS TOPICAL PATCH TD SCH (10:06)
--- NOTE | 2020-01-13 13:01 | PN ---
[facility] CIWA - CIWA Score Nausea/Vomitin-No Nausea/No Vomiting Muscle Tremors: 2 Anxiety: 4-Mod. Anxious/Guarded Agitation: 2 Paroxysmal Sweats: 2 Orientation: 0-Oriented Tacttile Disturbances: 0-None Auditory Disturbances: 0-None Visual Disturbances: 0-None Headache: 0-None Present CIWA-Ar Total Score: 10 S Progress Note (SOAP) Subjective: Complaints of anxiety, interrupted sleep, shakes and sweats. Objective: 01/13/20 13:00 Vital Signs 01/13/20 01/13/20 06:10 09:22 Temperature 96.9 F L 98.7 F Pulse Rate 99 H 81 Respiratory 18 18 Rate Blood Pressure 106/88 126/74 O2 Sat by Pulse 100 100 Oximetry (%) Laboratory Last Values WBC 8.1 K/mm3 (4.0-10.0) 01/11/20 11:00 RBC 4.88 M/mm3 (3.60-5.2) 01/11/20 11:00 Hgb 14.2 GM/dL (10.7-15.3) 01/11/20 11:00 Hct 42.4 % (32.4-45.2) 01/11/20 11:00 MCV 86.9 fl (80-96) 01/11/20 11:00 MCH 29.0 pg (25.7-33.7) 01/11/20 11:00 MCHC 33.4 g/dl (32.0-36.0) 01/11/20 11:00 RDW 13.9 % (11.6-15.6) 01/11/20 11:00 Plt Count 333 K/MM3 (134-434) 01/11/20 11:00 MPV 7.3 fl (7.5-11.1) L 01/11/20 11:00 Sodium 141 mmol/L (136-145) 01/11/20 11:00 Potassium 4.1 mmol/L (3.5-5.1) 01/11/20 11:00 Chloride 105 mmol/L (98-107) 01/11/20 11:00 Carbon Dioxide 29 mmol/L (21-32) 01/11/20 11:00 Anion Gap 7 MMOL/L (8-16) L 01/11/20 11:00 BUN 9.9 mg/dL (7-18) 01/11/20 11:00 Creatinine 0.6 mg/dL (0.55-1.3) 01/11/20 11:00 Est GFR (CKD-EPI)AfAm 139.78 01/11/20 11:00 Est GFR (CKD-EPI)NonAf 120.61 01/11/20 11:00 Random Glucose 125 mg/dL (74-106) H 01/11/20 11:00 Calcium 9.1 mg/dL (8.5-10.1) 01/11/20 11:00 Total Bilirubin 0.2 mg/dL (0.2-1) 01/11/20 11:00 AST 30 U/L (15-37) 01/11/20 11:00 ALT 22 U/L (13-61) 01/11/20 11:00 Alkaline Phosphatase 88 U/L (45-117) 01/11/20 11:00 Total Protein 8.1 g/dl (6.4-8.2) 01/11/20 11:00 Albumin 4.2 g/dl (3.4-5.0) 01/11/20 11:00 Syphilis Serology Non-reactive (NONREACTIVE) 01/11/20 11:00 COVID-19 ([facility]) Not detected (Not Detected) 01/11/20 11:11 HIV Ag/Ab Combo Qual Negative (NEGATIVE) 01/11/20 11:00 Labs noted. Assessment: 01/13/20 13:00 Alert and oriented x3, in no acute respiratory distress. Full ROM, ambulating in the unit without assistance. Withdrawal symptoms. Plan: Continue detox protocol.
[2020-01-13] MEDS: MELATONIN 5 MG TABLETS PO SCH (22:05)
[2020-01-13] MEDS: QUEtiapine FUMARATE 300 MG TABLET PO SCH (22:05)
[2020-01-13] MEDS: THIAMINE HCL 100 MG TABLET (FP) PO SCH (22:05)
[2020-01-14] MEDS ORDERED: chlordiazePOXIDE HCL 10 MG CAPSULE PO PRN
[2020-01-14] MEDS ORDERED: METHADONE HCL 10 MG TABLET ONE (03:21)
[2020-01-14] MEDS ORDERED: METHADONE HCL 40 MG DISPERSABLE TABLET ONE (03:22)
[2020-01-14] MEDS: METHADONE 40 MG, METHADONE 30 MG PO SCH (05:51)
[2020-01-14] MEDS: chlordiazePOXIDE HCL 10 MG CAPSULE PO SCH ×4 (05:51→22:15)
[2020-01-14] MEDS: NICOTINE POLACRILEX 2 MG GUM BUC PRN ×4 (05:56→15:32)
[2020-01-14] MEDS ORDERED: QUEtiapine FUMARATE 25 MG TABLET ONE (09:19)
[2020-01-14] MEDS: QUEtiapine FUMARATE 50 MG TABLET PO SCH (10:10)
[2020-01-14] MEDS: PRENATAL VITAMINS W/ FOLIC ACID TABLET (FP) PO SCH (10:10)
[2020-01-14] MEDS: BENZTROPINE MESYLATE 1 MG TABLET PO SCH ×2 (10:10→23:05)
[2020-01-14] MEDS: levETIRAcetam 500 MG TABLET (FP) PO SCH ×2 (10:10→22:15)
[2020-01-14] MEDS: NICOTINE 7 MG/24 HOURS TOPICAL PATCH TD SCH (10:11)
[2020-01-14] MEDS: HYDROCORTISONE 0.5% TOPICAL OINTMENT TUBE TP PRN (10:55)
[2020-01-14] MEDS: COLLOIDAL OATMEAL 1 BAR EACH TP PRN (10:55)
--- NOTE | 2020-01-14 11:25 | PN ---
S CIWA - CIWA Score Nausea/Vomitin-No Nausea/No Vomiting Muscle Tremors: 2 Anxiety: 2 Agitation: 2 Paroxysmal Sweats: 1-Minimal Palms Moist Orientation: 0-Oriented Tacttile Disturbances: 0-None Auditory Disturbances: 0-None Visual Disturbances: 0-None Headache: 0-None Present CIWA-Ar Total Score: 7 BHS Progress Note (SOAP) Subjective: sweats restless agitation body aches Objective: 01/14/20 11:20 Vital Signs Temperature 98.2 F 01/14/20 09:21 Pulse Rate 111 H 01/14/20 09:21 Respiratory Rate 18 01/14/20 09:21 Blood Pressure 128/62 01/14/20 09:21 O2 Sat by Pulse Oximetry (%) 99 01/14/20 09:21 Laboratory Tests 01/11/20 01/11/20 01/11/20 11:00 11:00 11:00 WBC 8.1 RBC 4.88 Hgb 14.2 Hct 42.4 MCV 86.9 MCH 29.0 MCHC 33.4 RDW 13.9 Plt Count 333 MPV 7.3 L Sodium 141 Potassium 4.1 Chloride 105 Carbon Dioxide 29 Anion Gap 7 L BUN 9.9 Creatinine 0.6 Est GFR (CKD-EPI)AfAm 139.78 Est GFR (CKD-EPI)NonAf 120.61 Random Glucose 125 H Calcium 9.1 Total Bilirubin 0.2 AST 30 ALT 22 Alkaline Phosphatase 88 Total Protein 8.1 Albumin 4.2 Syphilis Serology Non-reactive COVID-19 ([facility]) HIV Ag/Ab Combo Qual 01/11/20 01/11/20 11:00 11:11 WBC RBC Hgb Hct MCV MCH MCHC RDW Plt Count MPV Sodium Potassium Chloride Carbon Dioxide Anion Gap BUN Creatinine Est GFR (CKD-EPI)AfAm Est GFR (CKD-EPI)NonAf Random Glucose Calcium Total Bilirubin AST ALT Alkaline Phosphatase Total Protein Albumin Syphilis Serology COVID-19 ([facility]) Not detected HIV Ag/Ab Combo Qual Negative labs noted aaox3 ambulating no acute distress Assessment: 01/14/20 11:21 withdrawals pt was asked if she has any suicidal or homicidal ideation at this present time. pt states no. Plan: continue detox increase fluids
--- NOTE | 2020-01-14 11:28 | PN ---
[facility] Progress Note Note: pt MMTP was called to clarify the final dose pt was on before her coming to our detox. Pt was last physically present at her program on 01/04 with take home bottle on 01/06/2020 with 90mg. pt has not returned back to her program. Pt is currently on 70mg while in detox and she will remain this dose. Pt was stating she is to be built up, however pt was told her program will be responsible for her built up and she will remain on 70mg until her detox is completed. Pt in agreement.
[2020-01-14] MEDS: hydrOXYzine PAMOATE 25 MG CAPSULE (FP) PO PRN ×2 (15:31→17:57)
[2020-01-14] MEDS ORDERED: MASKS NR ONE (21:43)
[2020-01-14] MEDS: QUEtiapine FUMARATE 300 MG TABLET PO SCH (22:15)
[2020-01-14] MEDS: MELATONIN 5 MG TABLETS PO SCH (22:16)
[2020-01-14] MEDS: THIAMINE HCL 100 MG TABLET (FP) PO SCH (22:16)
[2020-01-14] MEDS: chlorproMAZINE HCL 25 MG TABLET PO PRN (22:18)
[2020-01-15] MEDS ORDERED: METHADONE HCL 10 MG TABLET ONE (04:54)
[2020-01-15] MEDS ORDERED: METHADONE HCL 40 MG DISPERSABLE TABLET ONE (04:55)
[2020-01-15] MEDS ORDERED: chlordiazePOXIDE HCL 10 MG CAPSULE PO SCH (05:00)
[2020-01-15] MEDS: METHADONE 40 MG, METHADONE 30 MG PO SCH (07:41)
[2020-01-15] MEDS: NICOTINE POLACRILEX 2 MG GUM BUC PRN ×2 (07:44→13:12)
[2020-01-15 09:20] VITALS: TEMP 97.1
[2020-01-15] MEDS: QUEtiapine FUMARATE 50 MG TABLET PO SCH (09:47)
[2020-01-15] MEDS: PRENATAL VITAMINS W/ FOLIC ACID TABLET (FP) PO SCH (09:47)
[2020-01-15] MEDS: levETIRAcetam 500 MG TABLET (FP) PO SCH (09:47)
[2020-01-15] MEDS: BENZTROPINE MESYLATE 1 MG TABLET PO SCH (09:47)
[2020-01-15] MEDS: NICOTINE 7 MG/24 HOURS TOPICAL PATCH TD SCH (09:48)
[2020-01-15] MEDS: chlorproMAZINE HCL 25 MG TABLET PO PRN (09:49)
--- NOTE | 2020-01-15 10:24 | PN ---
S CIWA - CIWA Score Nausea/Vomitin-No Nausea/No Vomiting Muscle Tremors: 2 Anxiety: 1-Mildly Anxious Agitation: 1-Slight > Activity Paroxysmal Sweats: No Perspiration Orientation: 0-Oriented Tacttile Disturbances: 0-None Auditory Disturbances: 0-None Visual Disturbances: 0-None Headache: 0-None Present CIWA-Ar Total Score: 4 B[facility] Progress Note (SOAP) Subjective: restless agitation interrupted sleep Objective: 01/15/20 10:23 Vital Signs Temperature 97.1 F L 01/15/20 08:49 Pulse Rate 105 H 01/15/20 08:49 Respiratory Rate 18 01/15/20 08:49 Blood Pressure 110/73 01/15/20 08:49 O2 Sat by Pulse Oximetry (%) 100 01/15/20 08:49 aaox3 ambulating no acute distress Assessment: 01/15/20 10:23 withdrawals Plan: continue detox d/c in am
[2020-01-15] MEDS ORDERED: MASKS NR ONE (11:01)
[2020-01-15] MEDS: hydrOXYzine PAMOATE 25 MG CAPSULE (FP) PO PRN (13:07)
--- NOTE | 2020-01-15 15:24 | DS ---
[facility] Detox Discharge Summary Admission Date: 01/11/20 Discharge Date: 01/15/20 - History Present History: Alcohol Dependence, Cannabis Dependence, Cocaine Dependence, MMTP - Physical Exam Results Vital Signs: Vital Signs Temperature 97.1 F L 01/15/20 08:49 Pulse Rate 105 H 01/15/20 08:49 Respiratory Rate 18 01/15/20 08:49 Blood Pressure 110/73 01/15/20 08:49 O2 Sat by Pulse Oximetry (%) 100 01/15/20 08:49 Pertinent Admission Physical Exam Findings: Vital Signs Temperature 97.1 F L 01/15/20 08:49 Pulse Rate 105 H 01/15/20 08:49 Respiratory Rate 18 01/15/20 08:49 Blood Pressure 110/73 01/15/20 08:49 O2 Sat by Pulse Oximetry (%) 100 01/15/20 08:49 Laboratory Tests 01/11/20 01/11/20 01/11/20 10:24 11:00 11:00 WBC 8.1 RBC 4.88 Hgb 14.2 Hct 42.4 MCV 86.9 MCH 29.0 MCHC 33.4 RDW 13.9 Plt Count 333 MPV 7.3 L Sodium 141 Potassium 4.1 Chloride 105 Carbon Dioxide 29 Anion Gap 7 L BUN 9.9 Creatinine 0.6 Est GFR (CKD-EPI)AfAm 139.78 Est GFR (CKD-EPI)NonAf 120.61 Random Glucose 125 H Calcium 9.1 Total Bilirubin 0.2 AST 30 ALT 22 Alkaline Phosphatase 88 Total Protein 8.1 Albumin 4.2 POC Urine HCG, Qual Negative Syphilis Serology COVID-19 ([facility]) HIV Ag/Ab Combo Qual 01/11/20 01/11/20 01/11/20 11:00 11:00 11:11 WBC RBC Hgb Hct MCV MCH MCHC RDW Plt Count MPV Sodium Potassium Chloride Carbon Dioxide Anion Gap BUN Creatinine Est GFR (CKD-EPI)AfAm Est GFR (CKD-EPI)NonAf Random Glucose Calcium Total Bilirubin AST ALT Alkaline Phosphatase Total Protein Albumin POC Urine HCG, Qual Syphilis Serology Non-reactive COVID-19 ([facility]) Not detected HIV Ag/Ab Combo Qual Negative labs noted aaox3 ambulating no acute distress pt is willing to go home. - Treatment Hospital Course: Detox Protocol Followed, Detoxed Safely, Responded well, Discharged Condition Good, Rehab Referral Accepted - Medication Discharge Medications: Ambulatory Orders Albuterol Sulfate Inhaler - [Ventolin HFA Inhaler -] 2 inh PO Q4H PRN #1 inhaler 09/25/17 levETIRAcetam [Keppra -] 1,000 mg PO BID 01/17/18 Chlorpromazine [Thorazine -] 25 mg PO TID PRN #30 tablet 01/18/18 Gabapentin [Neurontin -] 800 mg PO BID #60 capsule 01/18/18 Quetiapine Fumarate [Seroquel -] 50 mg PO DAILY #30 tablet 01/18/18 Quetiapine Fumarate [Seroquel -] 300 mg PO HS #30 tablet 01/18/18 Benztropine Mesylate [Cogentin -] 0.5 mg PO BID 01/11/20 Methadone [Dolophine -] 90 mg PO DAILY 01/11/20 - Diagnosis (1) Alcohol dependence with uncomplicated withdrawal Current Visit: Yes Status: Chronic (2) Cannabis dependence Current Visit: Yes Status: Chronic (3) Cocaine dependence Current Visit: Yes Status: Chronic Qualifiers: Substance use status: uncomplicated Qualified Code(s): F14.20 - Cocaine dependence, uncomplicated (4) IV drug user Current Visit: Yes Status: Acute (5) Substance induced mood disorder Current Visit: Yes Status: Acute (6) Substance-induced sleep disorder Current Visit: Yes Status: Acute (7) Nicotine dependence Current Visit: Yes Status: Chronic Qualifiers: Nicotine product type: cigarettes Substance use status: uncomplicated Qualified Code(s): F17.210 - Nicotine dependence, cigarettes, uncomplicated (8) Sedative, hypnotic or anxiolytic dependence with withdrawal, unspecified Current Visit: Yes Status: Chronic (9) Asthma Current Visit: No Status: Chronic Qualifiers: Asthma severity: mild Asthma persistence: intermittent Asthma complication type: unspecified Qualified Code(s): J45.20 - Mild intermittent asthma, uncomplicated (10) Bipolar disorder Current Visit: No Status: Chronic (11) Bronchial asthma Current Visit: Yes Status: Chronic Qualifiers: Asthma severity: moderate Asthma persistence: unspecified Asthma complication type: unspecified Qualified Code(s): J45.909 - Unspecified asthma, uncomplicated (12) Cannabis dependence Current Visit: Yes Status: Chronic (13) Hepatitis C Current Visit: Yes Status: Chronic Qualifiers: Viral hepatitis chronicity: unspecified Hepatic coma status: without hepatic coma Qualified Code(s): B19.20 - Unspecified viral hepatitis C without hepatic coma (14) Hypertension Current Visit: No Status: Chronic Qualifiers: Hypertension type: essential hypertension Qualified Code(s): I10 - Essential (primary) hypertension (15) Opioid dependence Current Visit: Yes Status: Chronic Qualifiers: Substance use status: uncomplicated Qualified Code(s): F11.20 - Opioid dependence, uncomplicated (16) PTSD (post-traumatic stress disorder) Current Visit: No Status: Chronic (17) Personality disorder Current Visit: No Status: Chronic (18) Psychiatric disorder Current Visit: No Status: Chronic (19) Seizure disorder Current Visit: No Status: Chronic (20) Skin rash Current Visit: No Status: Chronic - AMA Did Patient Leave Against Medical Advice: No
[2020-01-15 15:57] VITALS: BP 114/74; PULSE 97
[2020-01-16] MEDS ORDERED: chlordiazePOXIDE HCL 10 MG CAPSULE PO ONE (05:00)
== END 2020-01-15 16:14 | disposition home or self-care (01) | DRG 773 ==
LOC: YASAS 09:41 → Y6N 11:16
PROVIDERS: ADMIT Allergy & Immunology; ATTEND Allergy & Immunology
PROC: HZ2ZZZZ Detoxification Services for Substance Abuse Treatment (ICD-10-PCS; principal; 2020-01-11)
DX: F10.230 Alcohol dependence with withdrawal, uncomplicated (principal); F11.23 Opioid dependence with withdrawal; F13.230 Sedative, hypnotic or anxiolytic dependence with withdrawal, uncomplicated; F14.20 Cocaine dependence, uncomplicated; F12.20 Cannabis dependence, uncomplicated; F17.210 Nicotine dependence, cigarettes, uncomplicated; F31.9 Bipolar disorder, unspecified; F19.282 Other psychoactive substance dependence with psychoactive substance-induced sleep disorder; F19.24 Other psychoactive substance dependence with psychoactive substance-induced mood disorder; F43.10 Post-traumatic stress disorder, unspecified; G40.909 Epilepsy, unspecified, not intractable, without status epilepticus; I10 Essential (primary) hypertension; J45.20 Mild intermittent asthma, uncomplicated; Z62.810 Personal history of physical and sexual abuse in childhood; Z91.5 Personal history of self-harm; Z88.8 Allergy status to other drugs, medicaments and biological substances; Z91.013 Allergy to seafood
CPT/HCPCS: 36415; 80053; 81025; 85027; 86780; 87389; C9803; U0003

== ENCOUNTER 2022-07-12 11:40 | Inpatient (IN) | payer OTHER ==
[2022-07-12 12:00] VITALS: BMI 23.6
[2022-07-12] MEDS ORDERED: DICYCLOMINE HCL 10 MG CAPSULE PO PRN (12:13)
[2022-07-12] MEDS ORDERED: NALOXONE HCL (KLOXXADO) 8 MG SPRAY NS PRN (12:13)
[2022-07-12] MEDS ORDERED: BISMUTH SUBSALICYLATE 524 MG/30 ML PO PRN (12:13)
[2022-07-12] MEDS ORDERED: BENZOCAINE/MENTHOL (CHLORASEPTIC ) LOZENGE MM PRN (12:13)
[2022-07-12] MEDS ORDERED: ACETAMINOPHEN 325 MG TABLET (FP) PO PRN (12:13)
[2022-07-12] MEDS ORDERED: P-EPHED 60MG/TRIPROLIDI 2.5MG TABLET PO PRN (12:13)
[2022-07-12] MEDS ORDERED: MAG HYDROX/AL HYDROX/SIMETH 30 ML UNIT-DOSE CUP PO PRN (12:13)
[2022-07-12] MEDS ORDERED: IBUPROFEN 400 MG TABLET (FP) PO PRN (12:13)
[2022-07-12] MEDS ORDERED: POLYETHYLENE GLYCOL (HEALTHYLAX) 3350 17 GM PACKET PO PRN (12:13)
[2022-07-12] MEDS ORDERED: guaiFENesin 600 MG TABLET.ER (FP) PO PRN (12:13)
[2022-07-12] MEDS ORDERED: BENZONATATE 200 MG CAPSULE PO PRN (12:13)
[2022-07-12] MEDS ORDERED: MAGNESIUM HYDROX 2400MG/30ML ORAL SUSPENSION 30 ML CUP PO PRN (12:13)
[2022-07-12] MEDS ORDERED: NALOXONE HCL 0.4 MG/ML VIAL IM PRN (12:13)
[2022-07-12] MEDS ORDERED: NICOTINE POLACRILEX 4 MG GUM BUC PRN (12:13)
[2022-07-12] MEDS ORDERED: LOPERAMIDE HCL 2 MG CAPSULE PO PRN (12:13)
[2022-07-12] MEDS ORDERED: cloNIDine HCL 0.1 MG TABLET PO PRN (12:16)
[2022-07-12] MEDS ORDERED: ALBUTEROL SO4 HFA INHALER IH PRN (12:16)
[2022-07-12] MEDS ORDERED: chlordiazePOXIDE HCL 25 MG CAPSULE ONE (12:41)
[2022-07-12] MEDS ORDERED: methaDONE HCL 10 MG TABLET (FOR DETOX USE ONLY) ONE (12:42)
[2022-07-12] MEDS ORDERED: TRIMETHOBENZAMIDE HCL 200MG/2ML INJ IM ONE (12:45)
[2022-07-12] MEDS ORDERED: chlordiazePOXIDE HCL 25 MG CAPSULE PO ONE (12:45)
[2022-07-12] MEDS ORDERED: methaDONE HCL 10 MG TABLET (FOR DETOX USE ONLY) PO ONE (12:45)
[2022-07-12] MEDS ORDERED: levETIRAcetam 500 MG TABLET (FP) PO ONE (12:52)
[2022-07-12] MEDS: levETIRAcetam 500 MG TABLET (FP) PO SCH ×2 (12:53→22:35)
[2022-07-12] MEDS: ONDANSETRON *ODT* 4 MG TABLET SL PRN (13:14)
[2022-07-12] MEDS: IBUPROFEN 600 MG TABLET (FP) PO PRN (13:25)
[2022-07-12] MEDS: METHOCARBAMOL 500 MG TABLET PO PRN (13:25)
[2022-07-12] MEDS: NICOTINE 10 MG CARTRIDGE (INHALER) IH PRN ×3 (13:32→22:38)
[2022-07-12] MEDS ORDERED: COLLOIDAL OATMEAL 1 BAR EACH TP PRN (15:50)
[2022-07-12 16:49] VITALS: RESP 18
[2022-07-12] MEDS: chlordiazePOXIDE HCL 25 MG CAPSULE PO SCH ×2 (18:00→22:36)
[2022-07-12] MEDS ORDERED: THIAMINE HCL 100 MG TABLET (FP) PO SCH (22:00)
[2022-07-12] MEDS ORDERED: MELATONIN 5 MG TABLETS PO SCH (22:00)
[2022-07-13] MEDS: ONDANSETRON *ODT* 4 MG TABLET SL PRN (02:53)
[2022-07-13] MEDS: METHOCARBAMOL 500 MG TABLET PO PRN ×2 (02:53→10:35)
[2022-07-13] MEDS: chlordiazePOXIDE HCL 25 MG CAPSULE PO PRN ×2 (02:54→13:14)
[2022-07-13] MEDS: chlordiazePOXIDE HCL 25 MG CAPSULE PO SCH ×2 (05:50→10:42)
[2022-07-13] MEDS ORDERED: PRENATAL VITAMINS W/ FOLIC ACID TABLET (FP) PO SCH (10:00)
[2022-07-13] MEDS: levETIRAcetam 500 MG TABLET (FP) PO SCH (10:34)
[2022-07-13] MEDS: IBUPROFEN 600 MG TABLET (FP) PO PRN (10:35)
[2022-07-13] MEDS ORDERED: COLLOIDAL OATMEAL 1 BAR EACH TP PRN (10:58)
[2022-07-13 11:49] LABS: HEMATOCRIT 38.2 % (32.4-45.2); HEMOGLOBIN 13.4 GM/dL (10.7-15.3); MCH 30.2 pg (25.7-33.7); MCHC 35.1 g/dl (32.0-36.0); MEAN CELL VOLUME 86.1 fl (80-96); PLATELET COUNT 314 10^3/uL (134-434); RBC 4.44 M/mm3 (3.60-5.2); RDW 13.1 % (11.6-15.6); WHITE BLOOD COUNT 5.6 K/mm3 (4.0-10.0)
[2022-07-13 11:51] LABS: CALCIUM 9.1 mg/dL (8.5-10.1)
[2022-07-13 11:52] LABS: ALBUMIN 3.9 g/dl (3.4-5.0); BLOOD UREA NITROGEN 9.1 mg/dL (7-18)
[2022-07-13 11:55] LABS: CREATININE 0.6 mg/dL (0.55-1.3)
[2022-07-13 11:57] LABS: BILIRUBIN,TOTAL 0.3 mg/dL (0.2-1); TOT PROT 7.4 g/dl (6.4-8.2)
[2022-07-13 13:11] VITALS: BP 120/82; PULSE 73; TEMP 97.8
[2022-07-13] MEDS ORDERED: QUEtiapine FUMARATE 100 MG TABLET (FP) PO SCH (22:00)
[2022-07-14] MEDS ORDERED: chlordiazePOXIDE HCL 25 MG CAPSULE PO SCH (05:00)
[2022-07-14] MEDS ORDERED: methaDONE HCL 10 MG TABLET (FOR DETOX USE ONLY) PO ONE (10:00)
[2022-07-15] MEDS ORDERED: chlordiazePOXIDE HCL 10 MG CAPSULE PO PRN
[2022-07-15] MEDS ORDERED: chlordiazePOXIDE HCL 10 MG CAPSULE PO SCH (05:00)
[2022-07-16] MEDS ORDERED: chlordiazePOXIDE HCL 10 MG CAPSULE PO SCH (05:00)
[2022-07-16] MEDS ORDERED: methaDONE HCL 10 MG TABLET (FOR DETOX USE ONLY) PO ONE (10:00)
[2022-07-17] MEDS ORDERED: chlordiazePOXIDE HCL 10 MG CAPSULE PO ONE (05:00)
== END 2022-07-13 14:08 | disposition left against medical advice (07) | DRG 770 ==
LOC: YASAS 11:40 → Y6N 12:45
PROVIDERS: ADMIT Allergy & Immunology; ATTEND Surgery
PROC: HZ2ZZZZ Detoxification Services for Substance Abuse Treatment (ICD-10-PCS; principal; 2022-07-12)
DX: F11.23 Opioid dependence with withdrawal (principal); F10.230 Alcohol dependence with withdrawal, uncomplicated; F14.20 Cocaine dependence, uncomplicated; F17.210 Nicotine dependence, cigarettes, uncomplicated; F19.282 Other psychoactive substance dependence with psychoactive substance-induced sleep disorder; F19.24 Other psychoactive substance dependence with psychoactive substance-induced mood disorder; F43.10 Post-traumatic stress disorder, unspecified; G40.909 Epilepsy, unspecified, not intractable, without status epilepticus; I10 Essential (primary) hypertension; J45.909 Unspecified asthma, uncomplicated; B18.2 Chronic viral hepatitis C; Z88.8 Allergy status to other drugs, medicaments and biological substances; Z91.013 Allergy to seafood
CPT/HCPCS: 36415; 80053; 81025; 85027; 86780; 87811; C9803-CS; Q0162; U0003; U0005

== ENCOUNTER 2023-05-28 19:28 | Inpatient (IN) | payer OTHER ==
[2023-05-28 20:22] VITALS: BMI 30.9
[2023-05-28] MEDS ORDERED: IBUPROFEN 400 MG TABLET (FP) PO PRN (21:42)
[2023-05-28] MEDS ORDERED: NALOXONE HCL 0.4 MG/ML VIAL IM PRN (21:42)
[2023-05-28] MEDS ORDERED: BENZOCAINE/MENTHOL (CHLORASEPTIC ) LOZENGE MM PRN (21:42)
[2023-05-28] MEDS ORDERED: MAGNESIUM HYDROX 2400MG/30ML ORAL SUSPENSION 30 ML CUP PO PRN (21:42)
[2023-05-28] MEDS ORDERED: POLYETHYLENE GLYCOL (HEALTHYLAX) 3350 17 GM PACKET PO PRN (21:42)
[2023-05-28] MEDS ORDERED: BENZONATATE 200 MG CAPSULE PO PRN (21:42)
[2023-05-28] MEDS ORDERED: LOPERAMIDE HCL 2 MG CAPSULE PO PRN (21:42)
[2023-05-28] MEDS ORDERED: NALOXONE HCL (KLOXXADO) 8 MG SPRAY NS PRN (21:42)
[2023-05-28] MEDS ORDERED: DICYCLOMINE HCL 10 MG CAPSULE PO PRN (21:42)
[2023-05-28] MEDS: methaDONE HCL 10 MG TABLET (FOR DETOX USE ONLY) PO ONE (22:50)
[2023-05-28] MEDS: MELATONIN 5 MG TABLETS PO SCH (22:50)
[2023-05-28] MEDS: THIAMINE HCL 100 MG TABLET (FP) PO SCH (22:50)
[2023-05-28] MEDS: chlordiazePOXIDE HCL 25 MG CAPSULE PO SCH (22:51)
[2023-05-29] MEDS: NICOTINE POLACRILEX 2 MG GUM BUC PRN (00:51)
[2023-05-29] MEDS: chlordiazePOXIDE HCL 25 MG CAPSULE PO PRN (03:38)
[2023-05-29] MEDS ORDERED: ALBUTEROL SO4 HFA INHALER IH PRN (06:42)
[2023-05-29] MEDS: PRENATAL VITAMINS W/ FOLIC ACID TABLET (FP) PO SCH (09:32)
[2023-05-29] MEDS: NICOTINE 21 MG/24 HOURS TOPICAL PATCH TD SCH (09:33)
[2023-05-29] MEDS: levETIRAcetam 500 MG TABLET (FP) PO SCH (09:33)
[2023-05-29] MEDS: QUEtiapine FUMARATE 50 MG TABLET PO SCH (10:51)
[2023-05-29 10:56] LABS: CHLORIDE 104 mmol/L (98-107); POTASSIUM 4.3 mmol/L (3.5-5.1); SODIUM 139 mmol/L (136-145)
[2023-05-29 10:58] LABS: CALCIUM 8.8 mg/dL (8.5-10.1)
[2023-05-29 10:59] LABS: ALBUMIN 3.4 g/dl (3.4-5.0); ANION GAP 7 mmol/L (4-13); BLOOD UREA NITROGEN 15.9 mg/dL (7-18); CO2 28 mmol/L (21-32); GLUCOSE,RANDOM 94 mg/dL (74-106)
[2023-05-29 11:01] LABS: CREATININE 0.5 mg/dL (0.55-1.3); SGPT/ALT 22 U/L (13-61)
[2023-05-29 11:02] LABS: SGOT/AST 18 U/L (15-37)
[2023-05-29 11:03] LABS: ALK PHOS 94 U/L (45-117); TOT PROT 6.5 g/dl (6.4-8.2)
[2023-05-29 11:05] LABS: BILIRUBIN,TOTAL 0.2 mg/dL (0.2-1)
[2023-05-29 11:16] LABS: HEMATOCRIT 35.3 % (32.4-45.2); MCH 29.7 pg (25.7-33.7); MCHC 34.1 g/dl (32.0-36.0); MEAN CELL VOLUME 87.2 fl (80-96); MEAN PLT VOLUME 7.4 fl (7.5-11.1); PLATELET COUNT 324 10^3/uL (134-434); RBC 4.05 M/mm3 (3.60-5.2)
[2023-05-29] MEDS: hydrOXYzine PAMOATE 25 MG CAPSULE (FP) PO PRN (13:50)
[2023-05-29] MEDS: BENZTROPINE MESYLATE 0.5 MG TABLET (FP) PO SCH (14:16)
[2023-05-29] MEDS: chlorproMAZINE HCL 25 MG TABLET PO PRN (14:20)
[2023-05-29] MEDS: guaiFENesin 600 MG TABLET.ER (FP) PO PRN (20:30)
[2023-05-29] MEDS: METHOCARBAMOL 500 MG TABLET PO PRN (22:04)
[2023-05-29] MEDS: QUEtiapine FUMARATE 200 MG TABLET PO SCH (22:06)
[2023-05-30] MEDS: chlordiazePOXIDE HCL 25 MG CAPSULE PO SCH (05:21)
[2023-05-30] MEDS: MAG HYDROX/AL HYDROX/SIMETH 30 ML UNIT-DOSE CUP PO PRN (07:22)
[2023-05-30] MEDS: ONDANSETRON *ODT* 4 MG TABLET SL PRN (08:42)
[2023-05-30] MEDS ORDERED: levETIRAcetam 250 MG TABLET PO ONE (09:25)
[2023-05-30] MEDS: methaDONE HCL 10 MG TABLET (FOR DETOX USE ONLY) PO ONE (09:27)
[2023-05-30] MEDS: ACETAMINOPHEN 325 MG TABLET (FP) PO PRN (10:08)
[2023-05-30] MEDS ORDERED: TRIMETHOBENZAMIDE HCL 200MG/2ML INJ IM PRN (10:26)
[2023-05-30] MEDS: IBUPROFEN 600 MG TABLET (FP) PO PRN (15:53)
[2023-05-31] MEDS: BISMUTH SUBSALICYLATE 524 MG/30 ML PO PRN (00:23)
[2023-05-31] MEDS: chlordiazePOXIDE HCL 10 MG CAPSULE PO PRN (00:53)
[2023-05-31] MEDS: chlordiazePOXIDE HCL 10 MG CAPSULE PO SCH (05:22)
[2023-05-31 13:37] VITALS: TEMP 97.7
[2023-05-31 18:00] VITALS: BP 111/70; PULSE 97; RESP 17
[2023-06-01] MEDS ORDERED: chlordiazePOXIDE HCL 10 MG CAPSULE PO SCH (05:00)
[2023-06-01] MEDS ORDERED: methaDONE HCL 10 MG TABLET (FOR DETOX USE ONLY) PO ONE (10:00)
[2023-06-02] MEDS ORDERED: chlordiazePOXIDE HCL 10 MG CAPSULE PO ONE (05:00)
== END 2023-05-31 18:15 | disposition left against medical advice (07) | DRG 770 ==
LOC: YASAS 19:28 → Y6N 22:17
PROVIDERS: ADMIT Allergy & Immunology; ATTEND Surgery
PROC: HZ2ZZZZ Detoxification Services for Substance Abuse Treatment (ICD-10-PCS; principal; 2023-05-28)
DX: F11.23 Opioid dependence with withdrawal (principal); F10.230 Alcohol dependence with withdrawal, uncomplicated; F14.20 Cocaine dependence, uncomplicated; F12.20 Cannabis dependence, uncomplicated; F17.210 Nicotine dependence, cigarettes, uncomplicated; F31.9 Bipolar disorder, unspecified; F60.9 Personality disorder, unspecified; F43.10 Post-traumatic stress disorder, unspecified; G40.909 Epilepsy, unspecified, not intractable, without status epilepticus; I10 Essential (primary) hypertension; J45.20 Mild intermittent asthma, uncomplicated; Z62.810 Personal history of physical and sexual abuse in childhood; Z63.8 Other specified problems related to primary support group; Z28.310 Unvaccinated for COVID-19; Z28.9 Immunization not carried out for unspecified reason; Z88.8 Allergy status to other drugs, medicaments and biological substances
CPT/HCPCS: 36415; 80053; 80307; 85027; 86780; 87635; 93005; 93010; Q0162